=== PATIENT | male | born 1995 | race Caucasian/White ===

== ENCOUNTER 2016-10-04 00:21 | Inpatient (IN) | payer BC ==
[~2016-10-04] VITALS: Ht 175.3 cm; Wt 67.0 kg
--- NOTE | 2016-10-04 01:40 | REPUSA ---
CLINICAL HISTORY: Loss of consciousness. TECHNIQUE: Multiple axial brain CT scan sections were obtained from base to vertex without contrast a dministration. COMMENTS: The study shows normal configuration of sella turcica. There are no intra or extra-axial collections. There is no mass effect or midline shift. There is no evidence of hematoma formation. No hydrocephal us is present. No abnormal calcifications are noted. No significant abnormalities are seen either in the posterior fossa or supratentorial compartment. The sinuses and mastoid air cells are patent. IMPRESSION: No evidence of acute intracranial pathology. Thank you for your kind referral of this patient.
[2016-10-04 02:12] LABS: WHITE BLOOD COUNT 12.3 K/mm3 (4.0-10.0)
[2016-10-04 02:13] LABS: MEAN CORPUSCULAR HEMOGLOBIN 29.2 pg (27.0-33.0); MEAN CORPUSCULAR HGB CONC 33.2 g/dl (32.0-36.5); MEAN CORPUSCULAR VOLUME 87.8 fl (80.0-96.0); RED CELL DISTRIBUTION WIDTH 13.2 % (11.5-14.5)
[2016-10-04 02:41] LABS: METHADONE URINE NEGATIVE (NEGATIVE)
[2016-10-04 02:51] LABS: ALBUMIN 4.3 GM/DL (3.2-5.2); ALKALINE PHOSPHATASE 71 U/L (45-117); ALT/SGPT 17 U/L (12-78); ANION GAP 10 MEQ/L (8-16); AST/SGOT 32 U/L (15-37); BILIRUBIN,DIRECT 0.2 MG/DL (0.0-0.2); BILIRUBIN,TOTAL 0.6 MG/DL (0.2-1.0); BLOOD UREA NITROGEN 9 MG/DL (7-18); CALCIUM LEVEL 8.8 MG/DL (8.5-10.1); CARBON DIOXIDE LEVEL 26 MEQ/L (21-32); CHLORIDE LEVEL 104 MEQ/L (98-107); CREATININE FOR GFR 1.01 MG/DL (0.70-1.30); GLOMERULAR FILTRATION RATE > 60.0 (>60); GLUCOSE, FASTING 95 MG/DL (70-105); POTASSIUM SERUM 3.4 MEQ/L (3.5-5.1); SODIUM LEVEL 140 MEQ/L (136-145); TOTAL PROTEIN 7.6 GM/DL (6.4-8.2)
[2016-10-04] MEDS ORDERED: LORazepam 1 MG TAB PO PRN (03:30)
[2016-10-04] MEDS ORDERED: IBUPROFEN 400 MG TAB PO PRN (03:30)
[2016-10-04] MEDS ORDERED: traZODone 50 MG TAB PO PRN (03:30)
[2016-10-04] MEDS ORDERED: MOM 30ML SUSPENSION UDC PO PRN (03:30)
[2016-10-04] MEDS ORDERED: ACETAMINOPHEN TAB 650MG DOSE (2X325MG) PO PRN (03:30)
[2016-10-04 04:40] VITALS: BP 120/78
[2016-10-04] MEDS: NICOTINE 21MG/24HR 1 EA TRANSDERMAL TD SCH (09:14)
[2016-10-04] MEDS: risperiDONE 1 MG TAB PO SCH ×2 (09:14→22:09)
[2016-10-04] MEDS ORDERED: OLANZapine ORAL DISINTEGRATING TAB 5MG PO PRN (12:00)
--- NOTE | 2016-10-04 12:20 | MHHPE ---
DATE OF ADMISSION: 10/04/2016 LEGAL STATUS AT ADMISSION: 9.39 legal status. HISTORY OF PRESENT ILLNESS: 21-year-old male with history of high anxiety and posttraumatic stress disorder by patient report. He is admitted on a 9.39 legal status. According to the record, patient came to the emergency department to be evaluated for auditory hallucinations and suicidal ideation. It is reported that he is struggling with psychotic symptoms. He said that he suffers from command auditory hallucinations for a very long time and that "affect him physically". He stated that he tries to respond to the voices and at times, he feels his tongue swells and twitches. He reports that he feels like someone is pushing him on the back of his head. Says that he is working two jobs and has been trying to get an answer to the above voices and feelings. Says that he has been going to clergy and other professionals trying to get an answer. During the interview today, patient is highly anxious. Patient says that since age 8 has been experiencing these voices. He has tendency towards somatization. He talks about muscle tension and his jaw and muscles being pulled and twisted, left side body aches and pains. He talks about when he is communicating with another person, he feels his throat vibrating and twitching at the same rate of the other person. He calls his "psychic attack" or "witch craft". Patient says that he hears a human voice, can be a male or a female that says "do you want to" and says that he does not understand. Says these voices can come out even in front of domestic animals. Patient attributes the voice to some type of entity that is manipulating him. He talks about "I feel like a computer, when somebody moves and mouse and controls me". "They want me to say yes". "They don't want me to be happy". When asked about his mood, he reports depression but his mood changes are due to the above psychotic features. Patient also reports having sleep problems, trying to figure out what is happening to him. Says his energy level is okay but then he says "they take my energy out like a vampire". Has low self esteem and reports is appetite okay. He also reports panic like symptoms with tight chest, tight airways, tight lungs, shortness of breath and feeling like I am going to black out. Patient says that he was diagnosed of posttraumatic stress disorder and high anxiety. He reports that posttraumatic stress disorder was in the context of a police control at his home when he was younger. PAST MEDICAL HISTORY: Patient has been diagnosed of scoliosis. Patient is allergic to PEANUT PRODUCTS and BEES. PAST PSYCHIATRIC HISTORY: As above, patient reports has been diagnosed of posttraumatic stress disorder and high anxiety. Patient uses marijuana and alcohol. FAMILY HISTORY: Patient reports has several cousins with depression and drug abuse. SUBSTANCE ABUSE HISTORY: Patient says that he has been using marijuana for a long time but lately he is using just a small amount daily. Also reports has been controlling the alcohol intake and that he drinks approximately one beer daily although he has some days that maybe drinks a six pack at the most. SOCIAL HISTORY: Patient was raised by both parents. Patient denies any abuse or neglect during childhood. Reports a completely normal childhood. Denies any problems socializing or making friends when he was at school making B+ and A grades. He graduated high school. Patient reports that he is now working two jobs and is doing approximately 8 hours every week. Patient denies any problems at work or with coworkers. Patient lives with his parents that he says they are his main support. Says that around a year and a half ago, his social network has been decreasing progressively. PSYCHIATRIC REVIEW OF SYSTEMS: Depression and other mood disorder. Patient reports insomnia, anhedonia, energy deficit, psychomotor retardation and suicidal thoughts. 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 SUBSTANCE ABUSE HISTORY: Patient has been using alcohol and marijuana. ANXIETY DISORDER: Patient is anxious and has panic like symptoms. No agoraphobia. No obsessive compulsive disorder (OCD) symptoms like washing hands repeatedly or checking things over and over. SOMATIZATION DISORDER: Patient has tendency to somatize, reports generalized pain. No conversion disorder, GI or sexual symptoms. EATING DISORDER: Screening for dieting, use of laxatives, eating in binges is negative. DEMENTIA AND COGNITIVE DISORDER: Screening for short or watermelon inspector memory impairment, orientation and general information is negative for dementia or negative disorder. PSYCHOTIC DISORDER: As above, patient has delusions, is paranoid and also has auditory hallucinations. PHYSICAL EXAMINATION: As per physician assistance. LABS AT ADMISSION: CBC is unremarkable except white blood cell of 12.3, CMP is unremarkable except potassium of 3.4, TSH within normal limits. Urine drug screen (UDS) is negative. Blood alcohol level is negative. CT scan of the brain is within normal limits. MENTAL STATUS EXAMINATION: Patient is dressed in [facility]. Patient is cooperative. Speech is clear, coherent with normal rate and is spontaneous. Patient has fair eye contact. Mood is anxious and depressed. Affect is restricted. Patient is oriented to time, place, person and situation. Attention, concentration and memory are somewhat impaired. Patient reports auditory hallucinations. No visual hallucinations. Patient has paranoid delusions, somatic delusions. Patient reports suicidal thoughts but no homicidal ideation. Judgment and insight are poor. 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 Cannabis and alcohol abuse. Eyota II: Deferred. Eyota III: Scoliosis. INITIAL TREATMENT PLAN: Patient was admitted on a 9.39 legal status. Complete history was obtained. With his permission, family will be contacted and data base will be expanded. His medication regimen will be reviewed and changed accordingly. He will be provided with protected environment. He will be treated with individual, group and milieu therapy. He will also receive supportive psychoeducation. Discharge planning will commence immediately. Length of stay will be between 7-10 days. Outpatient followup will be strongly recommended. The treatment plan will focus initially on altered thoughts, altered perceptions , risk for suicide and substance abuse. EDD
[2016-10-04 18:23] VITALS: BP 134/74
[2016-10-04] MEDS: QUEtiapine FUMARATE 100 MG TAB PO SCH (22:08)
--- NOTE | 2016-10-05 07:38 | HPE ---
DATE: 10/05/2016 Please refer to the psychiatric history and evaluation for further details on this admission. This examination and history is intended for medical issues which may need treatment, follow-up or consultation on this 21-year-old male. ALLERGIES: PEANUTS and BEE VENOM. PRIMARY CARE PROVIDER: Dr. Coughlin, [facility]. SOCIAL HISTORY: He is single. ETOH - 1-6 beers per night. Smokes - 1 1/2 - 2 packs of cigarettes. Recreational drug use - marijuana. PAST MEDICAL HISTORY: Negative. PAST SURGICAL HISTORY: Circumcision 2011. HOME MEDICATIONS: None. RADIOLOGY STUDIES: CT negative. LABORATORY STUDIES: WBC 12.3, hemoglobin 14.4, hematocrit 43.4, platelets 340. Sodium 140, potassium 3.4, chloride 104, CO2 26, BUN 9, creatinine 1.01. Tox screen is negative. Ten systems review was done. Patient had a complaint of a slight papular rash, itchy on his left foot, otherwise unremarkable. PHYSICAL EXAMINATION: 21-year-old cooperative male in no acute distress. Height 69 inches. Weight 65.4 kg. Body mass index (BMI) 21.3 kilograms. Blood pressure 123/73. Pulse 52. Respirations 16. Temperature 97. The patient is alert and oriented times three. Pupils equal and reactive to light. Extraocular movements intact. Cornea and sclera clear. Conjunctiva normal. No facial asymmetry. Pharynx, tongue and gums pink and moist. Tongue is midline. Neck is supple, without lymphadenopathy. No thyromegaly. No goiter. Carotid 2+ without bruit. Chest clear to auscultation, without wheeze or retraction. Heart is regular. Abdomen benign. Bowel sounds positive. Genitourinary ()/Rectal: Not done. Extremities No cyanosis, clubbing or edema. Peripheral pulses equal and palpable bilaterally. Skin is warm and dry. Slight small vesicular rash top of left foot. No redness or drainage. IMPRESSION AND PLAN: 1. Psychiatric. Plan per psychiatry. 2. Rash left foot. We will do Lotrisone twice a day for 7 days. Monitor for withdrawal. 3. Hypokalemia. We will recheck potassium.
[2016-10-05] MEDS: risperiDONE 1 MG TAB PO SCH ×2 (08:00→21:19)
[2016-10-05] MEDS: NICOTINE 21MG/24HR 1 EA TRANSDERMAL TD SCH (08:00)
[2016-10-05] MEDS: LOTRISONE CREAM 15 GM (BETAMETH/CLOTRIMAZOLE) TOP SCH ×2 (08:00→21:20)
[2016-10-05] MEDS ORDERED: NICOTINE 21MG/24HR 1 EA TRANSDERMAL TD SCH (09:00)
--- NOTE | 2016-10-05 16:39 | IPN ---
DATE: 10/05/2016 A 21-year-old male with history of high anxiety and posttraumatic stress disorder (PTSD) admitted due to auditory hallucinations and suicidal ideation. SUBJECTIVE: "I feel better today. I was able to sleep." OBJECTIVE: No major changes from yesterday, although the patient reports improvement. The patient also says that his auditory hallucinations have decreased. The patient is compliant with treatment and has tolerated well the medication. MENTAL STATUS EXAMINATION: The patient is dressed in [facility]. The patient is clean and well groomed. Has fair eye contact. Speech is somewhat pressured. Mood is anxious. Affect is labile. The patient continues with auditory hallucinations and paranoid delusions. Memory, attention and concentration are fair. The patient is able to contract for safety while in the hospital. Insight and judgment are poor. ASSESSMENT: 1. Auditory hallucinations. 2. Altered thoughts. 3. Suicidal ideation. PLAN: 1. Continue with Seroquel 100 mg by mouth at bedtime. 2. Continue with Risperdal 1 mg by mouth twice a day. 3. Continue close observation. 4. Continue medication management, individual and group therapy.
[2016-10-05 18:00] VITALS: BP 138/85
[2016-10-05] MEDS: QUEtiapine FUMARATE 100 MG TAB PO SCH (21:19)
[2016-10-06 06:15] VITALS: BP 141/65
[2016-10-06 07:20] LABS: ANION GAP 7 MEQ/L (8-16); BLOOD UREA NITROGEN 10 MG/DL (7-18); CALCIUM LEVEL 8.8 MG/DL (8.5-10.1); CARBON DIOXIDE LEVEL 27 MEQ/L (21-32); CHLORIDE LEVEL 107 MEQ/L (98-107); CREATININE FOR GFR 0.91 MG/DL (0.70-1.30); GLOMERULAR FILTRATION RATE > 60.0 (>60); GLUCOSE, FASTING 89 MG/DL (70-105); POTASSIUM SERUM 4.5 MEQ/L (3.5-5.1); SODIUM LEVEL 141 MEQ/L (136-145)
[2016-10-06] MEDS: risperiDONE 1 MG TAB PO SCH ×2 (09:08→21:31)
[2016-10-06] MEDS: NICOTINE 21MG/24HR 1 EA TRANSDERMAL TD SCH (09:08)
[2016-10-06] MEDS: LOTRISONE CREAM 15 GM (BETAMETH/CLOTRIMAZOLE) TOP SCH ×2 (09:09→21:30)
--- NOTE | 2016-10-06 17:14 | IPN ---
DATE: 10/06/2016 A 21-year-old male with history of anxiety, posttraumatic stress disorder (PTSD) and auditory hallucinations, admitted for suicidal ideation. SUBJECTIVE: "I am feeling better." OBJECTIVE: The patient continues to improve slowly. The patient denies side effect from medication. The patient is motivated for treatment. The patient reports decrease of frequency and severity of the auditory hallucinations and has been able to sleep with the help of Seroquel. MENTAL STATUS EXAMINATION: The patient is dressed in [facility]. The patient is clean and well groomed, has fair eye contact. Speech is somewhat pressured. Mood is anxious, affect is labile. The patient's auditory hallucinations are improved and also his delusions are improving. Memory, attention and concentration are fair. The patient is able to contract for safety during his hospitalization. Insight and judgment are poor. ASSESSMENT: 1. Auditory hallucinations. 2. Altered thoughts. 3. Suicidal ideation. PLAN: 1. Continue with Seroquel 100 mg by mouth at bedtime. 2. Continue with Risperdal 1 mg by mouth twice a day. 3. Continue close observation. 4. Continue medication management, individual and group therapy.
[2016-10-06 18:41] VITALS: BP 127/60
[2016-10-06] MEDS: QUEtiapine FUMARATE 100 MG TAB PO SCH (21:31)
[2016-10-07 06:38] VITALS: BP 126/63
[2016-10-07] MEDS: LOTRISONE CREAM 15 GM (BETAMETH/CLOTRIMAZOLE) TOP SCH ×2 (08:10→22:01)
[2016-10-07] MEDS: risperiDONE 1 MG TAB PO SCH (08:10)
[2016-10-07] MEDS: NICOTINE 21MG/24HR 1 EA TRANSDERMAL TD SCH (08:11)
[2016-10-07 18:09] VITALS: BP 135/64
[2016-10-07] MEDS ORDERED: risperiDONE 1 MG TAB PO SCH (21:00)
[2016-10-07] MEDS: QUEtiapine FUMARATE 100 MG TAB PO SCH (22:00)
--- NOTE | 2016-10-07 22:26 | IPN ---
DATE: 10/07/2016 21-year-old male with history of anxiety, posttraumatic stress disorder (PTSD), auditory hallucinations, admitted to our unit for suicidal ideation. SUBJECTIVE: "I am feeling better." OBJECTIVE: Patient continues improving. Patient reports feeling significantly better with the help of the medication. He denies auditory hallucinations today. Patient is able to contract for safety. MENTAL STATUS EXAMINATION: Patient is dressed in [facility]. Patient is clean and well-groomed, has fair eye contact. His speech is somewhat pressured. Mood is anxious. Affect is labile. Patient's auditory hallucinations have been improving. Memory, attention, and concentration are fair. Patient is able to contract for safety during his hospitalization. Insight and judgment is poor. ASSESSMENT: 1. Auditory hallucinations. 2. Altered thoughts. 3. Suicidal ideation. PLAN: 1. Decrease Risperdal to 1 mg by mouth nightly. 2. Continue Seroquel 100 mg by mouth nightly. 3. Continue medication management, individual and group therapy.
[2016-10-08 06:29] VITALS: BP 122/67
[2016-10-08] MEDS: NICOTINE 21MG/24HR 1 EA TRANSDERMAL TD SCH (08:08)
[2016-10-08] MEDS: LOTRISONE CREAM 15 GM (BETAMETH/CLOTRIMAZOLE) TOP SCH ×2 (08:08→22:01)
[2016-10-08 18:00] VITALS: BP 118/63
[2016-10-08] MEDS ORDERED: traZODone 100 MG TAB PO SCH (21:00)
[2016-10-08] MEDS: risperiDONE 0.5 MG TAB PO SCH (22:01)
[2016-10-09 07:04] VITALS: BP 128/68
[2016-10-09] MEDS: NICOTINE 21MG/24HR 1 EA TRANSDERMAL TD SCH (08:00)
[2016-10-09] MEDS: LOTRISONE CREAM 15 GM (BETAMETH/CLOTRIMAZOLE) TOP SCH ×2 (08:01→23:04)
--- NOTE | 2016-10-09 09:40 | IPN ---
DATE OF SERVICE: 10/08/2016 A 21-year-old male with history of anxiety, posttraumatic stress disorder (PTSD), auditory hallucinations, admitted to our unit for suicidal ideation. SUBJECTIVE: "I feel much better." OBJECTIVE: The patient continues improving. The patient is denying auditory hallucinations. The patient does not have feelings of paranoia. The patient is motivated for treatment. He is interacting better with other patients and staff. Is going to all psychotherapy activities. Denies side effect from medication. MENTAL STATUS EXAMINATION: The patient dressed in [facility]. The patient is cooperative during the interview. Has fair eye contact. His speech is normal in rate, volume. Articulation is coherent and is spontaneous. Mood is slightly anxious. Affect is congruent with mood. No evidence of delusions or hallucinations during the interview. Memory, attention, and concentration are fair. The patient is able to contract for safety during his hospitalization. Insight and judgment is improving. ASSESSMENT: 1. Auditory hallucinations. 2. Altered thoughts. 3. Suicidal ideation. PLAN: 1. Decrease Risperdal to 0.5 mg by mouth nightly. 2. Discontinue Seroquel. 3. Start trazodone 100 mg by mouth nightly. 4. Continue medication management, individual and group therapy.
--- NOTE | 2016-10-09 21:57 | IPN ---
DATE: 10/09/2016 21-year-old male with history of anxiety, posttraumatic stress disorder (PTSD), and auditory hallucinations, admitted to our unit for suicidal ideation. SUBJECTIVE: "I feel better." OBJECTIVE: Patient continues improving, however he said he could not sleep well last night. His Seroquel was discontinued and he was started on trazodone. Patient denies side effect from the medication. Patient is interacting with other patients and staff. Patient is denying auditory or visual hallucinations. MENTAL STATUS EXAMINATION: Patient is dressed in [facility]. Patient is cooperative during the interview, has fair eye contact. His speech is normal in rate, volume, and articulation. Mood is slightly anxious. Affect is congruent with mood. No delusions or hallucinations. Memory, attention, and concentration are fair. Patient is able to contract for safety during his hospitalization. Insight and judgment is limited. ASSESSMENT: 1. Auditory hallucinations. 2. Altered thoughts. 3. Suicidal ideation. PLAN: 1. Continue Risperdal 0.5 mg by mouth nightly. 2. Increase trazodone to 100 mg by mouth nightly. 3. Continue medication management, individual and group therapy.
[2016-10-09] MEDS: risperiDONE 0.5 MG TAB PO SCH (23:03)
[2016-10-09] MEDS: traZODone 100 MG TAB PO SCH (23:03)
[2016-10-10 06:31] VITALS: BP 125/77
[2016-10-10] MEDS: LOTRISONE CREAM 15 GM (BETAMETH/CLOTRIMAZOLE) TOP SCH ×2 (09:00→22:36)
[2016-10-10] MEDS: NICOTINE 21MG/24HR 1 EA TRANSDERMAL TD SCH (09:04)
--- NOTE | 2016-10-10 16:05 | IPN ---
DATE: 10/10/2016 21-year-old male with history of anxiety, posttraumatic stress disorder (PTSD), and auditory hallucinations admitted to our unit for suicidal ideation. SUBJECTIVE: "I am feeling a lot better." OBJECTIVE: Patient has significantly improved from admission. Patient slept well with the increase of trazodone to 200 mg. Patient denies side effect from the medication. Patient is denying auditory or visual hallucinations or delusions. His mood is euthymic. Patient is interacting well with other patients and staff. Patient is more insightful. MENTAL STATUS EXAMINATION: Patient is dressed in [facility]. Patient is cooperative during the interview, has fair eye contact. Speech is normal in rate, volume, and articulation. Mood is euthymic. Affect is congruent with mood. No delusions or hallucinations. Memory, attention, and concentration are fair. Patient is denying suicidal or homicidal ideation during the interview. Insight and judgment is limited. ASSESSMENT: 1. Auditory hallucinations. 2. Altered thoughts. 3. Suicidal ideation. PLAN: 1. Continue with Risperdal 0.5 mg by mouth nightly. 2. Continue trazodone 200 mg by mouth nightly. 3. Continue medication management, individual and group therapy. 4. Will discharge tomorrow after a family meeting.
[2016-10-10 18:15] VITALS: BP 121/57
[2016-10-10] MEDS: traZODone 100 MG TAB PO SCH (22:16)
[2016-10-10] MEDS: risperiDONE 0.5 MG TAB PO SCH (22:17)
[2016-10-11 06:22] VITALS: BP 136/75
[2016-10-11] MEDS ORDERED: TRAZ10TA PO (08:06)
[2016-10-11] MEDS ORDERED: RISP0.5T21 PO (08:06)
[2016-10-11] MEDS: NICOTINE 21MG/24HR 1 EA TRANSDERMAL TD SCH (09:00)
[2016-10-11] MEDS: LOTRISONE CREAM 15 GM (BETAMETH/CLOTRIMAZOLE) TOP SCH (09:06)
--- NOTE | 2016-10-12 10:24 | MHDS ---
DATE OF ADMISSION: 10/04/2016 DATE OF DISCHARGE: 10/11/2016 LEGAL STATUS AT ADMISSION: 9.39 legal status. HISTORY OF PRESENT ILLNESS: 21-year-old male with history of high anxiety and posttraumatic stress disorder (PTSD) by patient report. He was admitted on a 9.39 legal status. According to the record, patient came to the emergency department (ED) to be evaluated for auditory hallucinations and suicidal ideation. 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 He reports that he feels like someone is pushing him on the back of his head. Says that he is working two jobs and is trying to get an answer to the above voices and feelings. Says that he has been going to clergy and other professionals trying to get this answer. During the interview in our unit, patient is highly anxious, says that since age 8 has been experiencing these voices. He has tendency towards somatization. He talks about muscle tension and his jaw and muscles being pulled and twisted, also that his left side of the body aches and has aches and pains. He talks about feeling his throat vibrating and twitching when he is talking to other people. He calls the above "psychic attack" or "witchcraft." Patient says that he hears a human voice, can be a male or female that says "do you want to" and says that he does not understand. Says these voices come even out in front of domestic animals. Patient attributes the voices to some type of entity that is manipulating him. He talks about "I feel like a computer, when somebody moves the mouse and controls me." "They want me to say yes." "They don't want me to be happy." When asked about his mood, he reports depression and mood changes due to the above explained psychotic features. Patient also reports significant problems with sleep and, at times, it is because he is trying to figure out what is happening to him. He stated that he has very low energy and reports "they take my energy out like a vampire." He reports low self esteem. Patient also reports that in the past was diagnosed with posttraumatic stress disorder (PTSD) and high anxiety, but the description of the traumatic event does not appear to be of high severity. Patient is non-reliable at this point. LABS AT ADMISSION: His CBC was unremarkable, except white blood cell of 12.3. CMP unremarkable, except potassium of 3.4. TSH within normal limits. Urine drug screen was negative. Blood alcohol level was negative. Brain CT was within normal limits. HOSPITAL COURSE: After the first interview, patient was started on Risperdal 1 mg by mouth twice a day and Seroquel 100 mg by mouth nightly. Patient reacted very well to this medication. Patient had no complication during his hospital admission. He recovered rather quickly from the psychotic features. After 48 hours of treatment, he stated that he was no longer hearing the voices. He started to interact much better with other patients and staff. His sleep was normalized with the help of Seroquel. His Risperdal was slowly decreased up to 0.5 mg by mouth nightly. Seroquel was discontinued and was switched to trazodone. Trazodone had to be increased up to 200 mg by mouth nightly to allow him to sleep well. At the moment of discharge, patient is in stable condition with no auditory or visual hallucinations, delusions, suicidal or homicidal ideation. He is more insightful. He is willing to followup recommendations and treatment. Patient is denying side effect from the medication. MEDICATIONS AT DISCHARGE: - Risperdal 0.5 mg by mouth nightly - trazodone 200 mg by mouth nightly MENTAL STATUS EXAMINATION AT DISCHARGE: Patient is dressed in [facility]. Patient is calm and cooperative. His speech is clear, coherent, with normal rate and is spontaneous. Patient has good eye contact. Mood is euthymic. Affect is appropriate and congruent with mood. Patient is oriented to time, place, person, and situation. Maintains attention and concentration correctliy. Instant recall, recent, and remote memory are intact. Thought processes are coherent, logical, and goal directed. Patient does not have auditory or visual hallucination. Patient does not have paranoid, persecutory, somatic, grandiose, or yazdanism delusion. Patient denies suicidal or homicidal ideation. Judgment and insight are fair. DISCHARGE DIAGNOSES: Edson I: Brief psychotic episode. Cannabis and alcohol abuse. Edson II: Deferred. Edson III: Scoliosis. CONDITION AT DISCHAGE: Stable. No auditory or visual hallucination. No delusions. No suicidal or homicidal ideation. INSTRUCTIONS TO THE PATIENT: It was recommended to the patient to decrease the amount of hours he was working. He said he was working 80 hours a . It is also recommended not to use alcohol or cannabis. He is willing to followup the recommendation. Patient has been advised to maintain absolute sobriety from drugs and alcohol and to continue taking his medications as prescribed. Patient has a scheduled appointment for medication management, individual psychotherapy, and primary care physician.
[2017-02-05] MEDS ORDERED: PRED10TA2 (18:32)
== END 2016-10-11 11:50 | disposition home or self-care (01) | DRG 751 ==
LOC: M ED 00:21 → M ED INP 03:30 → M PSY 04:34
PROVIDERS: ADMIT Psychiatry & Neurology Psychiatry; ATTEND Psychiatry & Neurology Psychiatry
DX: F23 Brief psychotic disorder (principal); R45.851 Suicidal ideations; F10.10 Alcohol abuse, uncomplicated; F12.10 Cannabis abuse, uncomplicated; Z91.010 Allergy to peanuts; Z91.030 Bee allergy status; R21 Rash and other nonspecific skin eruption; E87.6 Hypokalemia

== ENCOUNTER 2016-10-18 21:52 | Emergency (ER) | payer BC ==
[~2016-10-18] VITALS: Ht 175.3 cm; Wt 68.2 kg
[~2016-10-18 21:52] MED LIST: RISP0.5T21 PO; TRAZ10TA PO
[2016-10-18] MEDS ORDERED: EPINEPHrine INJ 1 MG/ML 1ML AMP IM STA (22:04)
[2016-10-18] MEDS ORDERED: NS 1,000 ML IV SCH (22:09)
[2016-10-18] MEDS ORDERED: FAMOTIDINE INJ 20MG/2ML VIAL (S0028) IVP ONE (22:15)
[2016-10-18 22:42] LABS: BASO % 0.2 % (0.0-1.0); EOS % 0.2 % (0.0-3.0); LARGE UNSTAINED CELL # 0.1 K/mm3 (0.0-0.4); LARGE UNSTAINED CELL % 0.9 % (0.0-4.0); LYMPH # 2.4 K/mm3 (1.5-6.5); LYMPH % 17.9 % (24.0-44.0); MEAN CORPUSCULAR HEMOGLOBIN 28.6 pg (27.0-33.0); MEAN CORPUSCULAR HGB CONC 32.9 g/dl (32.0-36.5); MEAN CORPUSCULAR VOLUME 86.9 fl (80.0-96.0); MONO # 0.6 K/mm3 (0.0-0.8); MONO % 4.5 % (0.0-5.0); NEUTROPHILS # 9.6 K/mm3 (1.8-7.7); NEUTROPHILS % 76.3 % (36.0-66.0); PLATELET COUNT, AUTOMATED 428 k/mm3 (150-450); RED CELL DISTRIBUTION WIDTH 13.6 % (11.5-14.5); WHITE BLOOD COUNT 12.6 K/mm3 (4.0-10.0)
[2016-10-18 22:48] LABS: ANION GAP 8 MEQ/L (8-16); BLOOD UREA NITROGEN 14 MG/DL (7-18); CARBON DIOXIDE LEVEL 28 MEQ/L (21-32); CHLORIDE LEVEL 103 MEQ/L (98-107); CREATININE FOR GFR 0.86 MG/DL (0.70-1.30); GLOMERULAR FILTRATION RATE > 60.0 (>60); GLUCOSE, FASTING 84 MG/DL (70-105); POTASSIUM SERUM 3.9 MEQ/L (3.5-5.1); SODIUM LEVEL 139 MEQ/L (136-145)
[2016-10-18 23:44] VITALS: BP 103/52
[2016-10-18] MEDS ORDERED: EPIP0.3I2 IM (23:58)
--- NOTE | 2016-10-19 07:20 | ECGEPIP ---
Stationary ECG Study [facility] - ED Test Date: 2016-10-18 Pat Name: MAXIME STEWART Department: Room: - Gender: M Lip Of Shank Cutter: eddie : 1995 Requested By: MATTHEW Toure Order Number: [id number] Reading MD: Thanh Bone Measurements Intervals Forbes Rate: 75 P: 64 IN: 147 QRS: 62 QRSD: 92 T: 51 QT: 388 QTc: 436 Interpretive Statements SINUS RHYTHM WITH SINUS ARRHYTHMIA Electronically Signed On 10-19-2016 7:20:45 EDT by Thanh Bone
--- NOTE | 2016-10-19 07:50 | REP ---
Chest two views HISTORY: Shortness of breath Comparison: None The lungs are clear. The heart is normal in size. The pulmonary vasculature is normal in appearance. The bony structure is intact. IMPRESSION: No acute disease. Signed by Matt Morris MD 10/19/2016 07:42 A
[2017-02-05] MEDS ORDERED: PRED10TA2 (18:32)
== END 2016-10-19 00:13 | disposition home or self-care (01) ==
LOC: EDBD 21:52 → M ED 21:52
DX: R22.0 Localized swelling, mass and lump, head (principal); T78.40XA Allergy, unspecified, initial encounter; Y92.9 Unspecified place or not applicable; Y93.9 Activity, unspecified; J45.909 Unspecified asthma, uncomplicated; F17.200 Nicotine dependence, unspecified, uncomplicated; Z79.899 Other long term (current) drug therapy; Z88.8 Allergy status to other drugs, medicaments and biological substances; Z91.010 Allergy to peanuts

== ENCOUNTER 2016-12-20 21:12 | Emergency (ER) | payer BC ==
[~2016-12-20] VITALS: Ht 175.3 cm; Wt 67.3 kg
[~2016-12-20 21:12] MED LIST changes: +EPIP0.3I2 IM
[2016-12-20] MEDS ORDERED: ALBUTEROL SULFATE 2.5 MG/0.5 ML INH NEB SOLN NEB ONE ×2 (22:30→23:15)
--- NOTE | 2016-12-20 23:10 | REPUSA ---
Clinical history: shortness of breath. Comparison: None. Findings: Frontal and lateral views of the chest were obtained. The mediastinum and cardiac silhouett e are within normal limits. The lungs are clear. No pleural effusion or pneumothorax is seen. The oss eous structures and soft tissues are unremarkable. Impression: No acute disease.
[2016-12-20] MEDS ORDERED: ALBU17IN INH (23:22)
[2016-12-21 00:10] VITALS: BP 116/57
[2017-02-05] MEDS ORDERED: PRED10TA2 (18:32)
== END 2016-12-21 00:10 | disposition home or self-care (01) ==
LOC: M ED 21:12
DX: J20.9 Acute bronchitis, unspecified (principal); J45.909 Unspecified asthma, uncomplicated; F41.9 Anxiety disorder, unspecified; F43.10 Post-traumatic stress disorder, unspecified; Z79.899 Other long term (current) drug therapy; Z88.8 Allergy status to other drugs, medicaments and biological substances; Z91.010 Allergy to peanuts

== ENCOUNTER → 2018-03-09 | Outpatient (CLI) | payer BC ==
[2018-03-09 16:55] LABS: BASO % 0.3 % (0.0-1.0); EOS # 0.4 10^3/uL (0.0-0.50); HEMATOCRIT 36.3 % (42.0-52.0); HEMOGLOBIN 11.9 g/dl (13.5-17.5); IMMATURE GRANULOCYTE % 0.4 % (0-3.0); LYMPH # 2.5 10^3/uL (1.5-6.5); LYMPH % 18.2 % (24.0-44.0); MEAN CORPUSCULAR HEMOGLOBIN 28.9 pg (27.0-33.0); MEAN CORPUSCULAR HGB CONC 32.8 g/dl (32.0-36.5); MEAN CORPUSCULAR VOLUME 88.1 fl (80.0-96.0); MONO # 0.8 10^3/uL (0.0-0.8); MONO % 5.9 % (0.0-5.0); NEUTROPHILS # 9.8 10^3/uL (1.8-7.7); NEUTROPHILS % 72.2 % (36.0-66.0); PLATELET COUNT, AUTOMATED 342 10^3/uL (150-450); RED BLOOD COUNT 4.12 10^6/uL (4.30-6.10); RED CELL DISTRIBUTION WIDTH 13.2 % (11.5-14.5); WHITE BLOOD COUNT 13.5 10^3/uL (4.0-10.0)
[2018-03-09 17:01] LABS: ALBUMIN 3.4 GM/DL (3.2-5.2); ALBUMIN/GLOBULIN RATIO 1.03 (1.00-1.93); ALKALINE PHOSPHATASE 75 U/L (45-117); ALT/SGPT 15 U/L (12-78); ANION GAP 7 MEQ/L (8-16); AST/SGOT 20 U/L (7-37); BILIRUBIN,TOTAL 0.3 MG/DL (0.2-1.0); BLOOD UREA NITROGEN 11 MG/DL (7-18); CALCIUM LEVEL 8.4 MG/DL (8.5-10.1); CARBON DIOXIDE LEVEL 27 MEQ/L (21-32); CHLORIDE LEVEL 106 MEQ/L (98-107); CREATININE FOR GFR 0.93 MG/DL (0.70-1.30); GLOMERULAR FILTRATION RATE > 60.0 (>60); GLUCOSE, FASTING 91 MG/DL (70-100); POTASSIUM SERUM 3.9 MEQ/L (3.5-5.1); SODIUM LEVEL 140 MEQ/L (136-145); TOTAL PROTEIN 6.7 GM/DL (6.4-8.2)
[2018-03-09 23:07] LABS: CHLAMYDIA DNA AMPLIFICATION NEGATIVE (NEGATIVE); GC DNA AMPLIFICATION NEGATIVE (NEGATIVE)
[2018-03-11 10:23] LABS: HEPATITIS B SURFACE ANTIGEN NEGATIVE (NEGATIVE)
[2018-03-11 10:49] LABS: HEPATITIS C VIRUS ABY INDEX 0.1 INDEX (<0.8)
[2018-03-11 10:51] LABS: HEPATITIS B CORE ANTIBODY IGM NEGATIVE (NEGATIVE)
[2018-03-11 10:52] LABS: HEPATITIS A ANTIBODY IGM NEGATIVE (NEGATIVE); HIV 1&2 SCREEN CENTAUR NEGATIVE (NEGATIVE)
[2018-03-11 14:16] LABS: Lyme Disease IgG/IgM Antibodie <0.91 ISR (0.00-0.90); Lyme Disease IgM Ab Quantitati <0.80 index (0.00-0.79)
== END ==
LOC: M WUC 13:12
DX: L03.114 Cellulitis of left upper limb (principal)
CPT/HCPCS: 80053

== ENCOUNTER → 2018-05-14 | Outpatient (CLI) | payer BC ==
[~2018-05-14] MED LIST changes: +ALBU17IN INH; +PRED10TA2
--- NOTE | 2018-05-14 19:11 | REP ---
UNILATERAL LEFT RIBS, PA CHEST: HISTORY: Chest pain. COMPARISON: 02/12/2017. The lungs are clear. The heart is normal in size. The pulmonary vasculature is normal in appearance. The bony structure is intact. IMPRESSION: No acute disease. Electronically Signed by Matt Morris MD 05/14/2018 07:16 P
[2018-05-14 21:41] LABS: CHLAMYDIA DNA AMPLIFICATION NEGATIVE (NEGATIVE); GC DNA AMPLIFICATION NEGATIVE (NEGATIVE)
[2018-05-15 15:58] LABS: HEPATITIS A ANTIBODY IGM NEGATIVE (NEGATIVE); HEPATITIS B CORE ANTIBODY IGM NEGATIVE (NEGATIVE); HEPATITIS B SURFACE ANTIGEN NEGATIVE (NEGATIVE); HEPATITIS C VIRUS ABY INDEX 0.1 INDEX (<0.8); HIV 1&2 SCREEN CENTAUR NEGATIVE (NEGATIVE)
== END ==
LOC: M WUC 18:02
PROVIDERS: ATTEND Physician Assistant
DX: R07.9 Chest pain, unspecified (principal)

== ENCOUNTER → 2018-06-28 | Outpatient (CLI) | payer BC ==
--- NOTE | 2018-06-29 07:19 | REP ---
LEFT SHOULDER, THREE VIEWS: There is no evidence of an acute fracture, dislocation or intrinsic bone disease. IMPRESSION: No fracture or dislocation. Electronically Signed by Nicholas Ward MD 06/29/2018 09:23 A
--- NOTE | 2018-06-29 07:19 | REP ---
THORACIC SPINE: Three AP and lateral views of the thoracic spine are performed. There is no fracture or dislocation. There is normal thoracic kyphosis and alignment. There is no significant degenerative disc disease. The posterior elements are intact. IMPRESSION: No fracture or dislocation. Electronically Signed by Nicholas Ward MD 06/29/2018 09:23 A
== END ==
LOC: M WUC 16:15
PROVIDERS: ATTEND Physician Assistant
DX: S20.222A Contusion of left back wall of thorax, initial encounter (principal); S40.012A Contusion of left shoulder, initial encounter; Y92.9 Unspecified place or not applicable; Y93.9 Activity, unspecified; Y99.9 Unspecified external cause status; X58.XXXA Exposure to other specified factors, initial encounter

== ENCOUNTER 2018-08-30 20:20 | Emergency (ER) | payer BC ==
[~2018-08-30] VITALS: Ht 170.2 cm; Wt 68.2 kg
[2018-08-30 20:49] LABS: BASO # 0.1 10^3/uL (0.0-0.2); EOS # 0.4 10^3/uL (0.0-0.50); EOS % 5.1 % (0.0-3.0); HEMATOCRIT 38.4 % (42.0-52.0); HEMOGLOBIN 12.9 g/dl (13.5-17.5); LYMPH # 2.9 10^3/uL (1.5-6.5); LYMPH % 35.8 % (24.0-44.0); MEAN CORPUSCULAR HEMOGLOBIN 28.7 pg (27.0-33.0); MEAN CORPUSCULAR HGB CONC 33.6 g/dl (32.0-36.5); MEAN CORPUSCULAR VOLUME 85.5 fl (80.0-96.0); MONO # 0.5 10^3/uL (0.0-0.8); MONO % 6.5 % (0.0-5.0); NEUTROPHILS # 4.2 10^3/uL (1.8-7.7); NEUTROPHILS % 51.2 % (36.0-66.0); PLATELET COUNT, AUTOMATED 450 10^3/uL (150-450); RED BLOOD COUNT 4.49 10^6/uL (4.30-6.10); WHITE BLOOD COUNT 8.2 10^3/uL (4.0-10.0)
--- NOTE | 2018-08-30 20:54 | REP ---
Clinical: Chest pain . Comparison: 05/14/2018 . Findings: The mediastinum and cardiac silhouette are stable and within normal limits for portable technique. The lung alexis are clear without acute consolidation, effusion, or pneumothorax. Skeletal structures are intact. Impression: No acute cardiopulmonary process appreciated. Electronically Signed by Jamin Casarez MD 08/30/2018 08:46 P
[2018-08-30] MEDS ORDERED: NS 1,000 ML IV ONE (21:15)
[2018-08-30 21:26] LABS: AMPHETAMINES LEVEL URINE POSITIVE (NEGATIVE); BARBITURATES URINE NEGATIVE (NEGATIVE); BENZODIAZEPINES URINE NEGATIVE (NEGATIVE); CANNABINOIDS URINE POSITIVE (NEGATIVE); COCAINE METABOLITE URINE POSITIVE (NEGATIVE); METHADONE URINE NEGATIVE (NEGATIVE); OPIATES URINE NEGATIVE (NEGATIVE); PHENCYCLIDINE URINE NEGATIVE (NEGATIVE)
[2018-08-30 21:30] LABS: ALBUMIN 3.5 GM/DL (3.2-5.2); ALT/SGPT 22 U/L (12-78); BILIRUBIN,DIRECT < 0.1 MG/DL (0.0-0.2); BILIRUBIN,TOTAL 0.4 MG/DL (0.2-1.0); BLOOD UREA NITROGEN 16 MG/DL (7-18); CALCIUM LEVEL 8.8 MG/DL (8.5-10.1); CARBON DIOXIDE LEVEL 26 MEQ/L (21-32); CHLORIDE LEVEL 103 MEQ/L (98-107); CPK CREATINE PHOSPHOKINASE 877 U/L (39-308); CREATININE FOR GFR 1.05 MG/DL (0.70-1.30); ETHYL ALCOHOL (ETHANOL) < 0.003 % (0.000-0.010); GLOMERULAR FILTRATION RATE > 60.0 (>60); GLUCOSE, FASTING 114 MG/DL (70-100); LIPASE 69 U/L (73-393); MB/CK RELATIVE INDEX 0.72 (< OR =4); POTASSIUM SERUM 3.8 MEQ/L (3.5-5.1); SODIUM LEVEL 138 MEQ/L (136-145); TOTAL PROTEIN 7.5 GM/DL (6.4-8.2); TROPONIN I < 0.02 NG/ML (< 0.10)
[2018-08-30] MEDS ORDERED: DILUENT IV ONE (23:00)
[2018-08-30] MEDS ORDERED: NS IV ONE (23:00)
[2018-08-30 23:09] LABS: CHLAMYDIA DNA AMPLIFICATION NEGATIVE (NEGATIVE); GC DNA AMPLIFICATION NEGATIVE (NEGATIVE)
--- NOTE | 2018-08-31 | REPVR ---
EXAM: US Pelvis Limited, Male EXAM DATE/TIME: 08/30/2018 11:34 PM CLINICAL HISTORY: 23 years old, male; Groin pain. Evaluate for hernia. TECHNIQUE: Imaging protocol: Real-time pelvic ultrasound with image documentation. COMPARISON: No relevant prior studies available. FINDINGS: Soft tissues: No inguinal hernia is identified on either side. IMPRESSION: No sonographic evidence for an inguinal hernia. Electronically signed by: Reuben Shipman On 08/30/2018 23:59:46 PM
--- NOTE | 2018-08-31 00:05 | REPVR ---
EXAM: US Scrotum and US Duplex Artery or Vein, Scrotum, Limited EXAM DATE/TIME: 08/30/2018 11:21 PM CLINICAL HISTORY: 23 years old, male; Groin pain TECHNIQUE: Imaging protocol: Real-time ultrasound of the scrotum. Real-time duplex ultrasound scan of the arterial or venous flow of the scrotum with B-mode, color Doppler flow and spectral waveform analysis. Limited exam. COMPARISON: No relevant prior studies available. FINDINGS: Right Testicle: Normal. No mass. No torsion or orchitis. Normal color Doppler and spectral waveforms. The right testicle measures 4.2 cm x 2.3 cm x 3.1 cm. Left Testicle: Normal. No mass. No torsion or orchitis. Normal color Doppler and spectral waveforms. The left testicle measures 4.7 cm x 2.2 cm x 3 cm. Epididymides: Incidental note is made of a 2 mm x 2 mm x 1 mm cyst in the right epididymis. The head of the right epididymis measures 7 mm in diameter and the head of the left epididymis measures 7 mm in diameter. Scrotum: There is small bilateral hydroceles. IMPRESSION: Essentially normal scrotal ultrasound, except for small bilateral hydroceles. No evidence for testicular torsion or orchitis. Electronically signed by: Reuben Shipman On 08/31/2018 00:05:03 AM
[2018-08-31] MEDS ORDERED: KETOROLAC 30 MG/ML VIAL (J1885) IV ONE (00:15)
[2018-08-31 01:30] VITALS: BP 113/64
--- NOTE | 2018-08-31 20:53 | ECGEPIP ---
[facility] - ED Test Date: 2018-08-30 Pat Name: MAXIME STEWART Department: Room: - Gender: Male Online Tutor: REID : [id number] Requested By: JOHN Murguia Order Number: [id number] Reading MD: Linda Doan Measurements Intervals [place] Rate: 76 P: 59 [place]: 147 QRS: 74 QRSD: 94 T: 61 QT: 368 QTc: 416 Interpretive Statements SINUS RHYTHM ST ELEVATION, PROBABLY EARLY REPOLARIZATION, CLINICAL CORRELATION Electronically Signed on 08-31-2018 20:52:48 EDT by Linda Doan
== END 2018-08-31 02:07 | disposition home or self-care (01) ==
LOC: M ED 20:20
DX: R53.81 Other malaise (principal); F19.20 Other psychoactive substance dependence, uncomplicated; Z72.0 Tobacco use; Z91.010 Allergy to peanuts; Z88.8 Allergy status to other drugs, medicaments and biological substances
CPT/HCPCS: 71045; 76857; 76870; 80048; 80076; 80307; 81001; 82550; 82553; 83690; 84484; 85025; 87491; 87591; 93005; 93041; 93976; 94760; 96361; 96374; 99285; G0480; J1885

== ENCOUNTER 2019-09-26 14:25 | Emergency (ER) | payer BC, SELFPAY ==
[~2019-09-26] VITALS: Ht 170.2 cm; Wt 79.3 kg
[~2019-09-26 14:25] MED LIST changes: -TRAZ10TA PO; +TRAZ1TAB12 PO
[2019-09-26 16:30] LABS: CHLAMYDIA DNA AMPLIFICATION NEGATIVE (NEGATIVE); GC DNA AMPLIFICATION NEGATIVE (NEGATIVE)
[2019-09-26] MEDS ORDERED: BACT800T5 PO (16:43)
[2019-09-26 16:49] VITALS: BP 131/75
[2019-09-27 10:57] LABS: HEPATITIS B SURFACE ANTIBODY POSITIVE (POSITIVE); HEPATITIS B SURFACE ANTIGEN NEGATIVE (NEGATIVE); HEPATITIS C VIRUS ABY INDEX > 11.0 INDEX (<0.8); HIV 1&2 SCREEN CENTAUR NEGATIVE (NEGATIVE)
== END 2019-09-26 16:51 | disposition home or self-care (01) ==
LOC: M ED 14:25
DX: L02.91 Cutaneous abscess, unspecified (principal); F11.10 Opioid abuse, uncomplicated; F17.200 Nicotine dependence, unspecified, uncomplicated; Z20.2 Contact with and (suspected) exposure to infections with a predominantly sexual mode of transmission; Z72.51 High risk heterosexual behavior; Z72.89 Other problems related to lifestyle; Z79.899 Other long term (current) drug therapy; Z86.14 Personal history of Methicillin resistant Staphylococcus aureus infection; Z88.8 Allergy status to other drugs, medicaments and biological substances; Z91.010 Allergy to peanuts

== ENCOUNTER → 2019-10-18 | Outpatient (REF) | payer OTHER, SELFPAY ==
[~2019-10-18] MED LIST changes: +BACT800T5 PO; +OMEP40CA97 PO; +PERC5TAB12 PO
[2019-10-18 14:50] LABS: ALBUMIN 3.2 GM/DL (3.2-5.2); ALT/SGPT 59 U/L (12-78); BILIRUBIN,TOTAL 0.4 MG/DL (0.2-1.0); BLOOD UREA NITROGEN 12 MG/DL (7-18); CALCIUM LEVEL 9.3 MG/DL (8.5-10.1); CARBON DIOXIDE LEVEL 28 MEQ/L (21-32); CHLORIDE LEVEL 105 MEQ/L (98-107); CREATININE FOR GFR 1.06 MG/DL (0.70-1.30); GLOMERULAR FILTRATION RATE > 60.0 (>60); GLUCOSE, FASTING 65 MG/DL (70-100); POTASSIUM SERUM 5.1 MEQ/L (3.5-5.1); SODIUM LEVEL 139 MEQ/L (136-145); TOTAL PROTEIN 7.2 GM/DL (6.4-8.2)
[2019-10-22 20:07] LABS: HEPATITIS A IgG TOTAL Positive (Negative); HEPATITIS C QUANTITATION 5150250 IU/mL (.); HEPATITIS C VIRUS GENOTYPE 3 (.)
== END ==
LOC: M SFHCPLAZ 10:53
PROVIDERS: ATTEND Internal Medicine Infectious Disease
DX: B18.2 Chronic viral hepatitis C (principal)

== ENCOUNTER 2019-10-27 18:09 | Emergency (ER) | payer OTHER, SELFPAY ==
[~2019-10-27] VITALS: Ht 180.3 cm; Wt 80.3 kg
[~2019-10-27 18:09] MED LIST changes: -OMEP40CA97 PO; -PERC5TAB12 PO
--- NOTE | 2019-10-27 18:40 | REP ---
Right hand series: Four views. History: Injury. Findings: Four views right hand demonstrate a transversely oriented fracture through the distal diaphysis of the fifth metacarpal. There is apex dorsal angulation but no displacement. There is associated soft-tissue swelling. Impression: Angulated fracture of the distal aspect of the fifth metacarpal diaphysis. Electronically Signed by Gumaro Becker MD 10/27/2019 06:33 P
[2019-10-27] MEDS ORDERED: PERCOCET 5MG/325MG TAB PO ONE (19:30)
[2019-10-27] MEDS ORDERED: PERC5TAB12 PO (20:02)
[2019-10-27 20:09] VITALS: BP 137/82
== END 2019-10-27 20:18 | disposition home or self-care (01) ==
LOC: M ED 18:09
DX: S62.346A Nondisplaced fracture of base of fifth metacarpal bone, right hand, initial encounter for closed fracture (principal); W22.8XXA Striking against or struck by other objects, initial encounter; Y99.0 Civilian activity done for income or pay; Z91.010 Allergy to peanuts; Z91.013 Allergy to seafood

== ENCOUNTER 2019-12-14 20:11 | Emergency (ER) | payer OTHER ==
[~2019-12-14] VITALS: Ht 172.7 cm; Wt 81.8 kg
[~2019-12-14 20:11] MED LIST changes: +PERC5TAB12 PO
[2019-12-14] MEDS ORDERED: GI COCKTAIL 50ML BTL(HYOSCYAMINE/MAALOX/LIDOCAINE VISCOUS)(1:3:1) PO ONE (21:45)
[2019-12-14] MEDS ORDERED: OMEP40CA97 PO (22:12)
[2019-12-14 22:15] VITALS: BP 158/81
[2019-12-14] MEDS ORDERED: OMEPRAZOLE 20 MG CAP PO ONE (22:15)
== END 2019-12-14 22:32 | disposition home or self-care (01) ==
LOC: M ED 20:11
DX: R09.89 Other specified symptoms and signs involving the circulatory and respiratory systems (principal); B18.2 Chronic viral hepatitis C; F19.10 Other psychoactive substance abuse, uncomplicated; Z91.010 Allergy to peanuts; Z91.013 Allergy to seafood; Z79.899 Other long term (current) drug therapy

== ENCOUNTER 2020-06-28 16:04 | Emergency (ER) | payer OTHER ==
[~2020-06-28] VITALS: Ht 180.3 cm; Wt 72.7 kg
[~2020-06-28 16:04] MED LIST changes: +OMEP40CA97 PO
[2020-06-28 17:47] LABS: BASO # 0.1 10^3/uL (0.0-0.2); BASO % 0.7 % (0.0-1.0); EOS # 0.5 10^3/uL (0.0-0.5); EOS % 4.7 % (0.0-3.0); HEMATOCRIT 45.7 % (42.0-52.0); LYMPH # 2.1 10^3/uL (1.5-5.0); LYMPH % 19.2 % (24.0-44.0); MEAN CORPUSCULAR HEMOGLOBIN 26.1 pg (27.0-33.0); MEAN CORPUSCULAR HGB CONC 30.6 g/dl (32.0-36.5); MEAN CORPUSCULAR VOLUME 85.3 fl (80.0-96.0); MONO # 0.8 10^3/uL (0.0-0.8); MONO % 7.9 % (2.0-8.0); NEUTROPHILS # 7.2 10^3/uL (1.5-8.5); NEUTROPHILS % 67.1 % (36.0-66.0); PLATELET COUNT, AUTOMATED 445 10^3/uL (150-450); RED BLOOD COUNT 5.36 10^6/uL (4.30-6.10); WHITE BLOOD COUNT 10.7 10^3/uL (4.0-10.0)
[2020-06-28 18:12] LABS: ACETAMINOPHEN LEVEL < 2.0 UG/ML (10.0-30.0); AMPHETAMINES LEVEL URINE NEGATIVE (NEGATIVE); BARBITURATES URINE NEGATIVE (NEGATIVE); BENZODIAZEPINES URINE NEGATIVE (NEGATIVE); CANNABINOIDS URINE NEGATIVE (NEGATIVE); COCAINE METABOLITE URINE NEGATIVE (NEGATIVE); ETHYL ALCOHOL (ETHANOL) < 0.003 % (0.000-0.010); METHADONE URINE NEGATIVE (NEGATIVE); OPIATES URINE NEGATIVE (NEGATIVE); PHENCYCLIDINE URINE NEGATIVE (NEGATIVE); SALICYLATE LEVEL < 1.7 MG/DL (5.0-30.0)
[2020-06-28 19:11] LABS: HEPATITIS B SURFACE ANTIBODY POSITIVE (POSITIVE); HEPATITIS B SURFACE ANTIGEN NEGATIVE (NEGATIVE); HIV 1&2 SCREEN CENTAUR NEGATIVE (NEGATIVE)
[2020-06-28 19:12] LABS: HEPATITIS C VIRUS ABY INDEX > 11.0 INDEX (<0.8)
[2020-06-28 19:20] VITALS: BP 145/79
[2020-06-28 19:22] LABS: BLOOD UREA NITROGEN 13 MG/DL (7-18); CREATININE FOR GFR 0.78 MG/DL (0.70-1.30); GLOMERULAR FILTRATION RATE > 60.0 (>60); GLUCOSE, FASTING 82 MG/DL (70-100)
[2020-06-28 19:23] LABS: ALT/SGPT 39 IU/L (0-32); CALCIUM LEVEL 9.5 MG/DL (8.5-10.1); CARBON DIOXIDE LEVEL 31 mmol/L (20-29); CHLORIDE LEVEL 102 MEQ/L (98-107); POTASSIUM SERUM 4.5 MEQ/L (3.5-5.1); SODIUM LEVEL 139 MEQ/L (136-145)
[2020-06-28 19:24] LABS: ALBUMIN 3.8 GM/DL (3.2-5.2); BILIRUBIN,TOTAL 0.2 MG/DL (0.2-1.0)
== END 2020-06-28 19:22 | disposition home or self-care (01) ==
LOC: M ED 16:04
DX: Z77.21 Contact with and (suspected) exposure to potentially hazardous body fluids (principal); W46.1XXA Contact with contaminated hypodermic needle, initial encounter; Y92.830 Public park as the place of occurrence of the external cause; Y93.9 Activity, unspecified; Y99.9 Unspecified external cause status; F17.200 Nicotine dependence, unspecified, uncomplicated; G43.909 Migraine, unspecified, not intractable, without status migrainosus; F43.10 Post-traumatic stress disorder, unspecified; F20.9 Schizophrenia, unspecified; F41.9 Anxiety disorder, unspecified; Z91.010 Allergy to peanuts; Z91.013 Allergy to seafood

== ENCOUNTER 2020-08-07 15:33 | Emergency (ER) | payer OTHER ==
[~2020-08-07] VITALS: Ht 180.3 cm; Wt 72.7 kg
[2020-08-07] MEDS ORDERED: HYDR25OI TOP (19:26)
[2020-08-07 20:10] VITALS: BP 123/75
== END 2020-08-07 20:16 | disposition home or self-care (01) ==
LOC: M ED 15:33
DX: Z11.3 Encounter for screening for infections with a predominantly sexual mode of transmission (principal); L30.9 Dermatitis, unspecified; J45.909 Unspecified asthma, uncomplicated; G43.909 Migraine, unspecified, not intractable, without status migrainosus; Z91.010 Allergy to peanuts; Z91.013 Allergy to seafood; F17.200 Nicotine dependence, unspecified, uncomplicated

== ENCOUNTER 2020-10-19 21:21 | Emergency (ER) | payer OTHER ==
[~2020-10-19] VITALS: Ht 180.3 cm; Wt 78.2 kg
[2020-10-19 21:21] VITALS: BP 130/77
[~2020-10-19 21:21] MED LIST changes: +HYDR25OI TOP; +OMEP40CA4 PO; -OMEP40CA97 PO
== END 2020-10-19 22:48 | disposition left against medical advice (07) ==
LOC: M ED 21:21
DX: Z53.21 Procedure and treatment not carried out due to patient leaving prior to being seen by health care provider (principal)

== ENCOUNTER → 2021-01-01 | Outpatient (CLI) | payer OTHER | LOC: M PLALAB 10:12 | PROVIDERS: ATTEND Internal Medicine Infectious Disease | DX: B18.2 Chronic viral hepatitis C (principal) ==

== ENCOUNTER 2021-01-23 14:21 | Emergency (ER) | payer MEDICAID ==
[~2021-01-23] VITALS: Ht 180.3 cm; Wt 83.6 kg
[2021-01-23 14:21] VITALS: BP 131/60
--- OUTSIDE RECORDS SUMMARY | 2021-01-23 16:17 | CCD | Continuity of Care Document ---
Author Author Marlo FLORES DPMode Organization Unknown Address [address] [place] [address] Phone [phone] Care Team Providers Care Business Intelligence Architect Name Role Phone Reuben Coughlin DO AUTM Unavailable Problems Description No Information Available Social History Type Date Description Comments Sex Unknown Tobacco Use Start: Unknown End: Unknown Patient is a former smoker Smoking Status Reviewed: 01/02/21 Patient is a former smoker Allergies and adverse reactions Active Allergies Criticality Reaction | Severity Comments Date Peanut Unable to assess criticality 12/13/2020 Bee Sting Unable to assess criticality 12/13/2020 Medications Description No Active Medications Immunizations Description No Information Available Vital Signs Description No Information Available Results Description No Information Available Procedures Date Code Description Status 01/16/2021 63972 Destruction Benign L esions Other Than Skin Tags Or Cutan Vascular Completed 01/02/2021 66634 Destruction Benign L esions Other Than Skin Tags Or Cutan Vascular Completed 12/18/2020 02373 Office/Outpatient New MDM 15- 29 Minutes Completed 12/18/2020 85029 Destruction Benign L esions Other Than Skin Tags Or Cutan Vascular Completed Medical Devices Description No Information Available Encounters Description No Information Available Assessments Date Code Description Provider 01/16/2021 B07.0 Plantar wart Vlad Flores DPM 01/02/2021 B07.0 Plantar wart Vlad Flores DPM 12/18/2020 B07.0 Plantar wart Vlad Flores DPM Plan of Treatment Future Appointment(s):* 01/30/2021 10:30 am - Vlad Flores DPM at [facility] Podiatry 01/16/2021 - Vlad Flores DPM* B07.0 Plantar wart Functional Status Description No Information Available Mental Status Description No Information Available Referrals Description No Information Available"
--- OUTSIDE RECORDS SUMMARY | 2021-01-23 16:17 | CCD | Continuity of Care Document ---
Author Author Marlo HURLEY D.O. Organization Unknown Address [address] [place] [id number] Phone [phone] Problems Active Problems Provider Date Anxiety Alicia Lehman D., JASBIR-C Onset: 12/02 Acne vulgaris Linda Bruce FNP-BC Onset: 05/26/2015 Drug abuse Reuben Hurley D.O., [facility] Onset: 11/2016 Note: chronic intermittent hx Social History Type Date Description Comments Sex Unknown ETOH Use Consumes 2 beers per day Tobacco Use Start: Unknown Patient is a current smoker, smo kes every day 1/2 ppd for 6 years Recreational Drug Use Denies Drug Use Smoking Status Reviewed: 11/30/20 Patient is a current smoker, smokes every day 1/2 ppd for 6 years Allergies, Adverse Reactions, Alerts Active Allergies Criticality Reaction | Severity Comments Date Bee Sting Unable to assess criticality Urticaria | Moderate 09/22/2014 peanuts Unable to assess criticality Anaphylaxis, Urticaria | Severe 09/22/2014 Medications Active Medications SIG Qnty Indications Ordering Provide r Date Epipen 2-Manjinder 0.3mg/0 .3ML Solution Auto-Inject inject as directed 2units Reuben Hurley D.O., FAAFP 09/22/2014 History Medications Minocycline HCL 50mg Capsules 1 by mouth every day 90caps Reuben Hurley D.O., FAAFP 06/2020 - 08/30/2020 Immunizations CPT Code Status Date Vaccine Lot # [id number] Refused 02/12/2017 Influenza Virus Vaccine, Quadrivalent, Slit Virus, Im Use 3Y & Up Vital Signs Date Vital Result Comment 11/30/2020 9:43am BP Systolic 112 mmHg BP Diastolic 72 mmHg Body Temperature 97.8 F Heart Rate 72 /min Respiratory Rate 16 /min Height 69 inches 5'9" Weight 173.00 lb [place] Body Weight 160 lb BMI (Body Mass Index) 25.5 kg/m2 O2 % BldC Oximetry 98 % 09/14/2020 2:54pm BP Systolic 128 mmHg BP Diastolic 70 mmHg Body Temperature 97.2 F Heart Rate 78 /min Respiratory Rate 16 /min Height 69 inches 5'9" Weight 172.00 lb [place] Body Weight 160 lb BMI (Body Mass Index) 25.4 kg/m2 O2 % BldC Oximetry 99 % Results Test Acquired Date Facility Test Result H/L Range Note CBC With Differential 06/28/2020 [facility] (Interface) [phone] White Blood Count 10.7 10 High 4.0-10.0 Red Blood Count 5.36 10 Normal 4.30-6.10 Hemoglobin 14.0 g/dL Normal 13.5-17.5 Hematocrit 45.7 % Normal 42.0-52.0 Mean Corpuscular Volume 85.3 fl Normal 80.0-96.0 Mean Corpuscular Hemoglobin 26.1 pg Low 27.0-33.0 Mean Corpuscular HGB Conc 30.6 g/dL Low 32.0-36.5 Red Cell Distribution Width 18.6 % High 11.5-14.5 Platelet Count, Automated 445 10 Normal 150-450 Neutrophils % 67.1 % High 36.0-66.0 Lymph % 19.2 % Low 24.0-44.0 [place] % 7.9 % Normal 2.0-8.0 Eos % 4.7 % High 0.0-3.0 Baso % 0.7 % Normal 0.0-1.0 Immature Granulocyte % 0.4 % Normal 0-3.0 Nucleated Red Blood Cell % 0.0 % Normal 0-0 Neutrophils # 7.2 10 Normal 1.5-8.5 Lymph # 2.1 10 Normal 1.5-5.0 Stephenson # 0.8 10 Normal 0.0-0.8 Eos # 0.5 10 Normal 0.0-0.5 Baso # 0.1 10 Normal 0.0-0.2 Drug Eval Toxicology ED Only 06/28/2020 [facility] (Interface) [phone] Amphetamines Level Urine NEGATIVE Normal Negativ e Barbiturates Urine NEGATIVE Normal Negative Benzodiazepines Urine NEGATIVE Normal Negative Cannabinoids Urine NEGATIVE Normal Negative Cocaine Metabolite Urine NEGATIVE Normal Negative Methadone Urine NEGATIVE Normal Negative Opiates Urine NEGATIVE Normal Negative Phencyclidine Urine NEGATIVE Normal Negative 1 Laboratory test finding 06/28/2020 [facility] (Interface) [phone] Ethyl Alcohol (Ethanol) < 0.003 % Normal 0.000-0. 010 2 Salicylate Level < 1.7 mg/dL Low 5.0-30.0 3 Acetaminophen Level < 2.0 UG/ML Low 10.0-30.0 4 Comprehensive Metabolic Profil 06/28/2020 [facility] (Interface) [phone] Glucose, Fasting 82 mg/dL Normal 70-100 Blood Urea Nitrogen 13 mg/dL Normal 7-18 Creatinine For GFR 0.78 mg/dL Normal 0.70-1.30 Glomerular Filtration Rate > 60.0 Normal >60 5 Sodium Level 139 mEq/L Normal 136-145 Potassium Serum 4.5 mEq/L Normal 3.5-5.1 Chloride Level 102 mEq/L Normal 98-107 Carbon Dioxide Level 31 mmol/L High 20-29 Anion Gap 6 mEq/L Low 8-16 Calcium Level 9.5 mg/dL Normal 8.5-10.1 Ast/Sgot 36 IU/L Normal Alt/SGPT 39 IU/L High 0-32 Alkaline Phosphatase 115 U/L Normal 45-117 Bilirubin,Total 0.2 mg/dL Normal 0.2-1.0 Total Protein 8.0 GM/DL Normal 6.4-8.2 Albumin 3.8 GM/DL Normal 3.2-5.2 Albumin/Globulin Ratio 0.9 Normal Laboratory test finding 06/28/2020 [facility] (Interface) [phone] Hepatitis C Virus [place] Index > 11.0 INDEX High <0 .8 6 Hepatitis B Surface Antigen NEGATIVE Normal Negative 7 Hepatitis B Surface Antibody POSITIVE Normal Positive 8 HIV 1&2 Screen Centaur NEGATIVE Normal Negative 9 HCV Rna Rosangela Qualitative Positive Abnormal Negative 10 1 ALL PRESUMPTIVE POSITIVE FINDINGS ARE UNCONFIRMED THRESHOLD IN NG/ML AMPHETAMINES/METHAMPHET 1000 BARBITURATES 200 BENZODIAZEPINES 200 CANNABINOIDS (THC) 50 COCAINE METABOLITE 300 METHADONE 300 OPIATES 300 PHENCYCLIDINE 25 RESULTS ARE FOR MEDICAL PURPOSES ONLY. ALL URINE SPECIMENS WILL BE SAVED FOR 3 DAYS. IF CONFIRMATION OF A PRESUMPTIVE POSITIVE SCREEN RESULT IS DESIRED, CALL CHEMISTRY ([phone]) AND REQUEST URINE TO BE SENT TO REFERENCE LAB. FOR A LIST OF CLOSELY RELATED COMPOUNDS PLEASE CALL THE LAB. 2 note:<nlbl:demographic_chang ed> 3 note:<nlbl:demographic_chang ed> 4 note:<nlbl:demographic_chang ed> 5 Units are mL/min/1.73 m2 Chronic Kidney Disease Staging per NKF: Stage I & II GFR >=60 Normal to Mildly Decreased Stage III GFR 30-59 Moderately Decreased Stage IV GFR 15-29 Severely Decreased Stage V GFR <15 Very Little GFR Left ESRD GFR <15 on FIBERGLASS AUTOBODY REPAIRER 6 This screening test for Hepa titis C Virus was above the 1.0 cutoff index value and will be sent to reference lab Laboratory [facility], [address] [place] [address]. Kari Martinez. [id number] for Hep C RNA ROSANGELA testing to confirm or exclude active Hepatitis C Virus infection. Screening test Positive samples with high index values (>11.0) usually (95%) confirm Positive, but <5 of every 100 samples with this result might be a false positive and Hep C RNA ROSANGELA testing will aid in patient management. 7 note:<nlbl:demographic_chang ed> 8 note:<nlbl:demographic_chang ed> 9 This assay was performed uti lizing a chemiluminescent principle technique for the simultaneous qualitative detection of HIV-1 p24 antigen & antibodies to HIV-1 (including group O) & HIV-2 using the Auto[employer]ike system. The estimated 95% confidence interval for sensitivity of this antigen/antibody combination assay for HIV-1&2 antibodies is 99.7-100% and HIV p24 antigen is 89.4-99.9%. The estimated 95% confidence interval for specificity of this antigen/antibody combination in low risk populations is 99.6-99.8%. 10 Positive: HCV RNA Detected Performed at: [address] [id number] Director Of Software Engineering: Miriam Louis MD, Phone: [phone] Procedures Date Code Description Status 09/14/2020 10737 Office/Outpatient Established Mo d MDM 30-39 Min Completed 08/30/2020 56729 Office/Outpatient Established Lo w MDM 20-29 Min Completed 06/07/2020 81817 Office/Outpatient Established Mo d MDM 30-39 Min Completed Medical Devices Description No Information Available Encounters Type Date Location Provider Dx Diagnosis Office Visit 09/14/2020 2:45p [place] [facility] Tejal Walter, FAAFP B17.10 Acute hepatitis C without hepatic coma L70.0 Acne vulgaris Z20.2 Contact w and exposure to in fect w a sexl mode of transmiss Office Visit 08/30/2020 2:20p [place] [facility] Saul Hebert, RP A R53.83 Other fatigue Z20.2 Contact w and exposure to in fect w a sexl mode of transmiss A54.00 Gonococcal infection of lowe r genitourinary tract, unsp A74.9 Chlamydial infection, unspec ified B17.10 Acute hepatitis C without he patic coma S00.06xA Insect bite (nonvenomous) of scalp, initial encounter Office Visit 06/07/2020 1:15p [place] [facility] Yuniel Walter, FAAFP L70.0 Acne vulgaris B18.2 Chronic viral hepatitis C Assessments Date Code Description Provider 09/14/2020 B17.10 Acute hepatitis C without hepati c coma Reuben Hurley D.O., FAAFP 09/14/2020 L70.0 Acne vulgaris Reuben Hurley D.O., FAAFP 09/14/2020 Z20.2 Contact with and (suspected) exp osure to infections with a p Reuben Hurley D.O., FAAFP 08/30/2020 R53.83 Other fatigue Saul Hebert, RPA 08/30/2020 Z20.2 Contact with and (jerez spected) exposure to infections with a predominantly sexual mode of transmission Saul Hebert, RPA 08/30/2020 A54.00 Gonococcal infection of lower genitourinary tract, unspecified Saul Hebert, RPA 08/30/2020 A74.9 Chlamydial infection, unspecifie d Saul Hebert, RPA 08/30/2020 B17.10 Acute hepatitis C without hepati c coma Saul Hebert, RPA 08/30/2020 S00.06xA Insect bite (nonvenomous) of sca lp, initial encounter Saul Hebert, RPA 06/07/2020 L70.0 Acne vulgaris Reuben Hurley D.O., FAAFP 06/07/2020 B18.2 Chronic viral hepatitis C Ariella Hurley D.O., LIZFP Plan of Treatment Future Appointment(s):* 12/26/2020 9:15 am - Reuben Hurley D.O., FAAFP at [facility] Functional Status Description No Information Available Mental Status Description No Information Available Referrals Refer to Reason for Referral Status Appt Date [facility] Dermatology severe acne/ cystic /on back with scarr ing please eval Sent [address] [address] [phone]
--- OUTSIDE RECORDS SUMMARY | 2021-01-23 16:17 | CCD ---
Author Author [facility] Organization [facility] Address Unknown Phone Unavailable Care Team Providers Care Travel Ticketing Reviewer Name Role Phone Kacie Castle Unavailable PROBLEMS Type Condition ICD9-CM Code [id number] Code Onset Dates Condition S tatus W/U Status Risk SNOMED Code Notes Problem IVDU (intravenous drug user) F19.90 Active confirme d [id number] Problem Chronic hepatitis C without hepatic coma B18.2 Active confirmed [id number] Problem Cocaine use F14.90 Active confirmed [id number] 0 ALLERGIES No Known Allergies ENCOUNTERS from 1995 to 2021-01-15 Encounter Location Date Provider Diagnosis [facility] [place] [address] [facility] [phone] [place] [address] Dec, Kacie Castle Chronic hepatitis C without hepatic coma B18.2 ; IVDU (intravenous drug user) F19.90 and Cocaine use F14.90 IMMUNIZATIONS Vaccine Route Administration Date Status TDAP 0.5mL (Boostrix) Unknown Mar 03, 2007 Administer ed Hepatitis B Ped & Adol 0.5mL Engerix-B Unknown Nov 08, 1 994 Administered Hepatitis B Ped & Adol 0.5mL Engerix-B Unknown Apr 19, 994 Administered Hepatitis B Ped & Adol 0.5mL Engerix-B Unknown Mar 19 993 Administered Hepatitis B Adult 1.0mL Engerix-B Unknown Mar 14, 2008 Administered Hepatitis B Adult 1.0mL Engerix-B Unknown Mar 03, 2007 Administered SOCIAL HISTORY Tobacco Use: Social History Observation Description Date Details (start date - stop date) Former Smoker Sex Assigned At : Social History Observation Description Sex Assigned At Unknown Audit Question Answer Notes Total Score: 4 Interpretation: Alcohol Education Language: Question Answer Notes Languages spoken: Turkish Sexual Hx: Question Answer Notes Had sex in the last 12 months (vaginal, oral, or anal)? Yes Have you ever had an STD? No with Women only Use protection? No Drug and Alcohol Question Answer Notes Total Score: 2 Interpretation: Low level Tobacco Use: Question Answer Notes Are you a: former smoker REASON FOR REFERRAL No Information VITAL SIGNS Weight 180 lbs Dec, Weight-kg 81.65 kg Dec, Height 5'9" in Dec, BMI 26.58 kg/m2 Dec, Heart Rate 105 /min Dec, Respiratory Rate 18 /min Dec, Temperature 98 degrees Fahrenheit Dec, Oximetry 100% Dec, Blood pressure systolic 124 mm Hg Dec, Blood pressure diastolic 72 mm Hg Dec, MEDICATIONS Medication SIG (Take, Route, Frequency, Duration) Notes Start Da te End Date Status Epclusa 400-100 MG 1 tablet Orally Once a day for 28 day(s) Active PROCEDURES No Information RESULTS Component Value Reference Range HEPATITIS C FIBROSURE [id number] Reviewed date:01/04/2021 16:55:21 Interpretation: Performing Lab:[facility] [address] [facility] [id number] , ,[place] [address] FIBROSIS SCORE 0.04 0.00-0.21 FIBROSIS STAGE . NECROINFLAM SCORE 0.12 0.00-0.17 NECROINFLAMM GRADE A0-No activity . ALPHA 2-MACROGLOBULIN 144 110-276 HAPTOGLOBIN 189 17-317 APOLIPOPROTEIN A-1 154 101-178 TOTAL BILIRUBIN 0.3 0.0-1.2 GGT 33 0-65 ALT 33 0-55 INTERPRETATION . FIBROSIS SCORING . NECROINFLAM SCORING . LIMITATIONS . COMMENT : . HEPATITIS C QUANT BY PCR Reviewed date:01/04/2021 16:55:21 Interpretation: Performing Lab:[facility] [address] [facility] [address] , ,[place] [address] HEPATITIS C QUANTITATION 040907 . Hepatitis C log10 5.155 . 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 Hepatitis C genotype 3. Will recheck viral load and fibrosure. He recalls being vaccinated for hepatitis B and hepatitis A, labs confirm immunity. He was given information regarding treatment with Epclusa through [facility] 1 tablet daily for a total of 12 weeks. We'll get prior authorization. Patient was advised to take it at bedtime as it gives you side effects fatigue headache and nausea Patient was advised to remain abstinent from alcohol and drugs. Dec, IVDU (intravenous drug user) (ICD-10 - F19.90) Advised to remain abstinent of alcohol and drugs. Dec, Cocaine use (ICD-10 - F14.90) Urine drug screen was positive on 08/30/18 for cocaine and marijuana alcohol negative PLAN OF TREATMENT Medication Medication Name Sig Start Date Stop Date Epclusa 400-100 MG 1 tablet Orally Once a day for 28 day(s) Treatment Notes Assessment Notes Clinical Notes Chronic hepatitis C without hepatic coma Labs done on 09/26/19 hepatitis C antibody> 11, HCV RNA positive hepatitis B surface antigen negative hepatitis B surface antibody positive HIV negative syphilis nonreactive. Hepatitis C genotype 3. Will recheck viral load and fibrosure.He recalls being vaccinated for hepatitis B and hepatitis A, labs confirm immunity.He was given information regarding treatment with Epclusa through [facility] 1 tablet daily for a total of 12 weeks. We'll get prior authorization. Patient was advised to take it at bedtime as it gives you side effects fatigue headache and nauseaPatient was advised to remain abstinent from alcohol and drugs. IVDU (intravenous drug user) Advised to remain abstinent of alcohol and drugs. Cocaine use Urine drug screen wa s positive on 08/30/18 for cocaine and marijuana alcohol negative Next Appt Details 4 Weeks Reason:hep C Provider Name:Kacie Castle, 2021-10-2 5 07:30:00 AM, [address] [facility], , [place], [address], Follow Up:4 Weekshep C Insurance Providers Payer Name Payer Address Payer Phone Insured Name Patient Relati onship to Insured Coverage Start Date Coverage End Date [facility] CLAIM[facility] DEPT [address] [facility] [phone] MAXIME STEWART self
--- OUTSIDE RECORDS SUMMARY | 2021-01-23 16:17 | CCD ---
Author Author [facility] [email or web address] Organization [facility] [email or web address] Address Unknown Phone Unavailable Care Team Providers Care Supervisor Operations Name Role Phone Kacie Castle Unavailable PROBLEMS Type Condition ICD9-CM Code [id number] Code Onset Dates Condition S tatus W/U Status Risk SNOMED Code Notes Problem IVDU (intravenous drug user) F19.90 Active confirme d 335257538 Problem Chronic hepatitis C without hepatic coma B18.2 Active confirmed 398564374 Problem Cocaine use F14.90 Active confirmed 37562058 0 ALLERGIES No Known Allergies ENCOUNTERS from 1993 to 2021-01-16 Encounter Location Date Provider Diagnosis [address] [phone] [place] [address] Jan, Kacie Castle IMMUNIZATIONS Vaccine Route Administration Date Status TDAP 0.5mL (Boostrix) Unknown Mar 03, 2007 Administer ed Hepatitis B Ped & Adol 0.5mL Engerix-B Unknown Nov 08, 1 994 Administered Hepatitis B Ped & Adol 0.5mL Engerix-B Unknown Apr 19 994 Administered Hepatitis B Ped & Adol [...] Education Language: Question Answer Notes Languages spoken: Indonesian Sexual Hx: Question Answer Notes Had sex in the last 12 months (vaginal, oral, or anal)? Yes Have you ever had an STD? No with Women only Use protection? No Drug and Alcohol Question Answer Notes Total Score: 2 Interpretation: Low level Tobacco Use: Question Answer Notes Are you a: former smoker REASON FOR REFERRAL No Information VITAL SIGNS No information MEDICATIONS Medication SIG (Take, Route, Frequency, Duration) Notes Start Da te End Date Status Epclusa 400-100 MG 1 tablet Orally Once a day for 28 day(s) Active PROCEDURES No Information RESULTS No Results REASON FOR VISIT Epclusa 400-100 MG Tablet MEDICAL (GENERAL) HISTORY Type Description Date Medical [...] No Surgical history information Hospitalization History as undeveloped lungs Goals Section No Information Health Concerns No Information MEDICAL EQUIPMENT No Information MENTAL STATUS No Information FUNCTIONAL STATUS No Information ASSESSMENTS No Information PLAN OF TREATMENT Medication Medication Name Sig Start Date Stop Date Epclusa 400-100 MG 1 tablet Orally Once a day for 28 day(s) Next Appt Details Provider Name:Kacie Estrada Tin, 2020-10-2 5 07:30:00 AM, [address] [place] [address], [place], [address], Insurance Providers Payer Name Payer Address Payer Phone Insured Name Patient Relati onship to Insured Coverage Start Date Coverage End Date [facility] CLAIMS DEPT [place] [phone] MAXIME STEWART self
--- OUTSIDE RECORDS SUMMARY | 2021-01-23 16:17 | CCD | Continuity of Care Document ---
Author Author Marlo FLORES DPM Organization Unknown Address [address] [place] [address] Phone [phone] Care Team Providers Care Heavy Equipment Rental Manager Name Role Phone Reuben Coughlin DO AUTM Unavailable Problems Description No Information Available Social History Type Date Description Comments Sex Unknown Tobacco Use Start: Unknown End: Unknown Patient is a former smoker Smoking Status Reviewed: 12/18/20 Patient is a former smoker Allergies, Adverse Reactions, Alerts Active Allergies Criticality Reaction | Severity Comments Date Peanut Unable to assess criticality 12/13/2020 Bee Sting Unable to assess criticality 12/13/2020 Medications Description No Active Medications Immunizations Description No Information Available Vital Signs Description No Information Available Results Description No Information Available Procedures Date Code Description Status 01/02/2021 61126 Destruction Benign L esions Other Than Skin Tags Or Cutan Vascular Completed 12/18/2020 74779 Office/Outpatient [facility] 15- 29 Minutes Completed 12/18/2020 38682 Destruction Benign L esions Other Than Skin Tags Or Cutan Vascular Completed Medical Devices Description No Information Available Encounters Description No Information Available Assessments Date Code Description Provider 01/02/2021 B07.0 Plantar wart Vlad Flores DPM 12/18/2020 B07.0 Plantar wart Vlad Flores DPM Plan of Treatment Future Appointment(s):* 01/16/2021 10:30 am - Vlad [facility] DPM at [facility] Podiatry 01/02/2021 - Vlad Flores DPM* B07.0 Plantar wart Functional Status Description No Information Available Mental Status Description No Information Available Referrals Description No Information Available"
--- OUTSIDE RECORDS SUMMARY | 2021-01-23 16:17 | CCD ---
Author Author [facility] Organization [facility] Address Unknown Phone Unavailable Care Team Providers Care Patient Financial Representative Name Role Phone Kacie Castle Unavailable PROBLEMS Type Condition ICD9-CM Code [id number] Code Onset Dates Condition S tatus W/U Status Risk SNOMED Code Notes Problem IVDU (intravenous drug user) F19.90 Active confirme d 183814728 Problem Chronic hepatitis C without hepatic coma B18.2 Active confirmed 721861946 Problem Cocaine use F14.90 Active confirmed 37424711 0 ALLERGIES No Known Allergies ENCOUNTERS from 1993 to 2021-01-12 Encounter Location Date Provider Diagnosis [address] [phone] [place] [address] 08 Jan, 2021 Kacie Castle Chronic hepatitis C without hepatic coma B18.2 IMMUNIZATIONS Vaccine Route Administration Date Status TDAP 0.5mL (Boostrix) Unknown Mar 03, 2007 Administer ed Hepatitis B Ped & Adol 0.5mL Engerix-B Unknown Nov 08, 1 994 Administered Hepatitis B Ped & Adol 0.5mL Engerix-B Unknown Apr 19, 994 Administered Hepatitis B Ped & Adol 0.5mL Engerix-B Unknown Mar 19, 993 Administered Hepatitis B Adult 1.0mL Engerix-B [...] Education Language: Question Answer Notes Languages spoken: Colombian Sexual Hx: Question Answer Notes Had sex [...] Information RESULTS No Results REASON FOR VISIT epclusa MEDICAL (GENERAL) HISTORY Type Description Date Medical [...] Notes Treatment Notes Treatm ent Clinical Notes Jan, Chronic hepatitis C without hepatic coma (ICD-10 - B18.2) PLAN OF TREATMENT Medication Medication Name Sig Start Date Stop Date Epclusa 400-100 MG 1 tablet Orally Once a day for 28 day(s) Next Appt Details Provider Name:Kacie Castle, 2020-10-2 5 07:30:00 AM, [address] [place] [address], , [place], [address], Insurance Providers Payer Name Payer Address Payer Phone Insured Name Patient Relati onship to Insured Coverage Start Date Coverage End Date PENDING SALE TO [facility] [employer]PORATE CLAIMS DEPT [address] [place] [phone] MAXIME STEWART self
--- OUTSIDE RECORDS SUMMARY | 2021-01-23 16:17 | CCD | Continuity of Care Document ---
Author Author Marlo HURLEY D.O. Organization Unknown Address [address] [place] [address] Phone [phone] Problems Active Problems Provider Date Anxiety Alicia Lehman D., ADVERTISING ACCOUNT EXECUTIVE-C Onset: 12/02 Acne vulgaris Linda Bruce, ADVERTISING ACCOUNT EXECUTIVE-BC Onset: 05/26/2015 Drug abuse Reuben Hurley D.O., FAAARIN Onset: 11/2016 Note: chronic intermittent hx Vaccine refused by patient Reuben Hurley D.O., FAAARIN Onse t: 11/30/2020 Note: COVID-may think about getting it Social History Type Date Description Comments Sex Unknown ETOH Use Consumes 2 beers per day Tobacco Use Start: Unknown Patient is a current smoker, smo kes every day 1/2 ppd for 6 years Recreational Drug Use Denies Drug Use Smoking Status Reviewed: 06/07/20 Patient is a current smoker, smokes every [...] mouth every day 90caps Reuben Hurley D.O., LIZFP 06/2020 - 08/30/2020 Immunizations CPT Code Status Date Vaccine Lot # [id number] Refused 02/12/2017 Influenza Virus Vaccine, Quadrivalent, Slit Virus, Im Use 3Y & Up Vital Signs Date Vital Result Comment 11/30/2020 9:43am BP Systolic 112 mmHg BP Diastolic 72 mmHg Body Temperature 97.8 F Heart Rate 72 /min Respiratory Rate 16 /min Height 69 inches 5'9" Weight 173.00 lb [place] Body Weight 160 lb BMI (Body Mass Index) 25.5 kg/m2 O2 % BldC Oximetry 98 % 09/14/2020 2:54pm BP Systolic 128 mmHg BP Diastolic 70 mmHg Body Temperature 97.2 F Heart Rate 78 /min Respiratory Rate 16 /min Height 69 inches 5'9" Weight 172.00 lb [place] Body Weight 160 lb BMI (Body Mass Index) 25.4 kg/m2 O2 % BldC Oximetry 99 % Results Test Acquired Date Facility Test Result H/L Range Note CBC With Differential 06/28/2020 [facility] ([facility]) [phone] White Blood Count 10.7 10 High 4.0-10.0 [...] 36.0-66.0 Lymph % 19.2 % Low 24.0-44.0 [place] % 7.9 % Normal 2.0-8.0 Eos % 4.7 % High 0.0-3.0 Baso % 0.7 % Normal 0.0-1.0 Immature Granulocyte % 0.4 % Normal 0-3.0 Nucleated Red Blood Cell % 0.0 % Normal 0-0 Neutrophils # 7.2 10 Normal 1.5-8.5 Lymph # 2.1 10 Normal 1.5-5.0 [place] # 0.8 10 Normal 0.0-0.8 Eos # 0.5 10 Normal 0.0-0.5 Baso # 0.1 10 Normal 0.0-0.2 Drug Eval Toxicology ED Only 06/28/2020 [facility] (Interface) [phone] Amphetamines Level Urine NEGATIVE Normal Negativ e Barbiturates Urine NEGATIVE Normal Negative Benzodiazepines Urine NEGATIVE Normal Negative Cannabinoids Urine NEGATIVE Normal Negative Cocaine Metabolite Urine NEGATIVE Normal Negative Methadone Urine NEGATIVE Normal Negative Opiates Urine NEGATIVE Normal Negative Phencyclidine Urine NEGATIVE Normal Negative 1 Laboratory test finding 06/28/2020 [facility] (Interface) [phone] Ethyl Alcohol (Ethanol) < 0.003 % Normal 0.000-0. 010 2 Salicylate Level < 1.7 mg/dL Low 5.0-30.0 3 Acetaminophen Level < 2.0 UG/ML Low 10.0-30.0 4 Comprehensive Metabolic Profil 06/28/2020 [facility] (Interface) [phone] Glucose, Fasting 82 mg/dL Normal 70-100 Blood [...] Ratio 0.9 Normal Laboratory test finding 06/28/2020 [facility] (Interface) [phone] Hepatitis C Virus Waleska Index > 11.0 [...] Little GFR Left ESRD GFR <15 on FOLEY ARTIST 6 This screening test for Hepa titis C Virus was above the 1.0 cutoff index value and will be sent to reference lab Laboratory [facility], [address] [place] [address]. Kari Martinez. [address] for Hep C RNA ROSANGELA testing to [...] (including group O) & HIV-2 using the TargetX system. The estimated 95% confidence interval for sensitivity of this antigen/antibody combination assay for HIV-1&2 antibodies is 99.7-100% and HIV p24 antigen is 89.4-99.9%. The estimated 95% confidence interval for specificity of this antigen/antibody combination in low risk populations is 99.6-99.8%. 10 Positive: HCV RNA Detected Performed at: [address] [id number] Snag Grinder: Miriam Louis MD, Phone: [phone] Procedures Date Code Description Status 11/30/2020 59678 Paring Benign Hyperkeratoric Sin gle [place] Or Callus Completed 09/14/2020 82816 Office/Outpatient Established Mo d MDM 30-39 Min Completed 08/30/2020 05850 Office/Outpatient Established Lo w MDM 20-29 Min Completed 06/07/2020 46285 Office/Outpatient Established Mo d MDM 30-39 Min Completed Medical Devices Description No Information Available Encounters Type Date Location Provider Dx Diagnosis Office Visit 09/14/2020 2:45p [place] [facility] Tejal Walter, FAAFP B17.10 Acute hepatitis C without hepatic coma L70.0 Acne vulgaris Z20.2 Contact w and exposure to in fect w a sexl mode of transmiss Office Visit 08/30/2020 2:20p [facility] [facility] Saul Hebert, RP A R53.83 Other fatigue Z20.2 Contact w and exposure to in fect w a sexl mode of transmiss A54.00 Gonococcal infection of lowe r genitourinary tract, unsp A74.9 Chlamydial infection, unspec ified B17.10 Acute hepatitis C without he patic coma S00.06xA Insect bite (nonvenomous) of scalp, initial encounter Office Visit 06/07/2020 1:15p [place] [facility] Yuniel Walter, FAAFP L70.0 Acne vulgaris B18.2 Chronic viral hepatitis C Assessments Date Code Description Provider 11/30/2020 L84 Corns and callosities Reuben Hurley D.O., FAAFP 09/14/2020 B17.10 Acute hepatitis C without hepati [...] C without hepati c coma Saul Hebert, [facility] 08/30/2020 S00.06xA Insect bite (nonvenomous) of sca lp, initial encounter Saul Hebert, RPA 06/07/2020 L70.0 Acne vulgaris Reuben Hurley D.O., FAAFP 06/07/2020 B18.2 Chronic viral hepatitis C Ariella Hurley D.O., FAAFP Plan of Treatment Future Appointment(s):* 12/26/2020 9:15 am - Reuben Hurley D.O., LIZFP at [facility] Functional Status Description No Information Available Mental Status Description No Information Available Referrals Refer to Reason for Referral Status Appt Date [facility] Dermatology severe acne/ cystic /on back with scarr ing please eval Sent [address] [place] [address] [phone]
--- OUTSIDE RECORDS SUMMARY | 2021-01-23 16:17 | CCD | Continuity of Care Document ---
Author Author Marlo FLORES DPM Organization Unknown Address [address] [place] [address] Phone [phone] Care Team Providers Care Db2 Dba Name Role Phone Reuben Coughlin DO AUTM Unavailable Problems Description No Information Available Social History Type Date Description Comments Sex Unknown Tobacco Use Start: Unknown End: Unknown Patient is a former smoker Allergies, Adverse Reactions, Alerts Active Allergies Criticality Reaction | Severity Comments Date Peanut Unable to assess criticality 12/13/2020 Bee Sting Unable to assess criticality 12/13/2020 Medications Description No Active Medications Immunizations Description No Information Available Vital Signs Description No Information Available Results Description No Information Available Procedures Description No Information Available Medical Devices Description No Information Available Encounters Description No Information Available Assessments Description No Information Available Plan of Treatment Future Appointment(s):* 01/01/2021 9:30 am - Vlad Flores DPM at [facility] Podiatry Functional Status Description No Information Available Mental Status Description No Information Available Referrals Description No Information Available"
--- OUTSIDE RECORDS SUMMARY | 2021-01-23 16:17 | CCD | Continuity of Care Document ---
Author Author Marlo HURLEY D.O. Organization Unknown Address [address] [place] [address] Phone [phone] Problems Active Problems Provider Date Anxiety Alicia Lehman D., DIRECTOR BLOOD BANK-C Onset: 12/02 Acne vulgaris Linda Bruce, DIRECTOR BLOOD BANK-BC Onset: 05/26/2015 Drug abuse Reuben Hurley D.O., BECCA Onset: 11/2016 Note: chronic intermittent hx Vaccine refused by patient Reuben Hurley D.O., BECCA Onse t: 11/30/2020 Note: COVID and FLU -may think about g etting it Social History Type Date Description Comments Sex Unknown ETOH Use Consumes 2 beers per day Tobacco Use Start: Unknown Patient is a current smoker, smo kes every day 1/2 ppd for 6 years Recreational Drug Use Denies Drug Use Smoking Status Reviewed: 12/07/20 Patient is a current smoker, smokes every [...] inject as directed 2units Reuben Hurley D.O., BECCA 09/22/2014 Immunizations CPT Code Status Date Vaccine Lot # [id number] Refused 12/13/2020 Influenza Virus Vaccine, Quadrivalent, Slit Virus, Im Use 3Y & Up 72959 Refused 02/12/2017 Influenza Virus Vaccine, Quadrivalent, Slit Virus, Im Use 3Y & Up Vital Signs Date Vital Result Comment 12/13/2020 9:13am BP Systolic 128 mmHg BP Diastolic 62 mmHg Body Temperature 97.5 F Heart Rate 109 /min Respiratory Rate 16 /min Height 69 inches 5'9" Weight 180.00 lb [place] Body Weight 160 lb BMI (Body Mass Index) 26.6 kg/m2 O2 % BldC Oximetry 98 % 12/07/2020 11:15am BP Systolic 126 mmHg BP Diastolic 56 mmHg Body Temperature 97.5 F Heart Rate 74 /min Respiratory Rate 18 /min Height 69 inches 5'9" Weight 178.00 lb [place] Body Weight 160 lb BMI (Body Mass Index) 26.3 kg/m2 O2 % BldC Oximetry 98 % Results Test Acquired Date Facility Test Result H/L Range Note CBC With Differential 06/28/2020 [facility] ([facility]) [phone] White Blood Count 10.7 10 High 4.0-10.0 [...] 36.0-66.0 Lymph % 19.2 % Low 24.0-44.0 [place] % 7.9 % Normal 2.0-8.0 Eos % 4.7 % High 0.0-3.0 Baso % 0.7 % Normal 0.0-1.0 Immature Granulocyte % 0.4 % Normal 0-3.0 Nucleated Red Blood Cell % 0.0 % Normal 0-0 Neutrophils # 7.2 10 Normal 1.5-8.5 Lymph # 2.1 10 Normal 1.5-5.0 [place] # 0.8 10 Normal 0.0-0.8 Eos # 0.5 10 Normal 0.0-0.5 Baso # 0.1 10 Normal 0.0-0.2 Drug Eval Toxicology ED Only 06/28/2020 [facility] (Interface) [phone] Amphetamines Level Urine NEGATIVE Normal Negativ e Barbiturates Urine NEGATIVE Normal Negative Benzodiazepines Urine NEGATIVE Normal Negative Cannabinoids Urine NEGATIVE Normal Negative Cocaine Metabolite Urine NEGATIVE Normal Negative Methadone Urine NEGATIVE Normal Negative Opiates Urine NEGATIVE Normal Negative Phencyclidine Urine NEGATIVE Normal Negative 1 Laboratory test finding 06/28/2020 [facility] (Interface) [phone] Ethyl Alcohol (Ethanol) < 0.003 % Normal 0.000-0. 010 2 Salicylate Level < 1.7 mg/dL Low 5.0-30.0 3 Acetaminophen Level < 2.0 UG/ML Low 10.0-30.0 4 Comprehensive Metabolic Profil 06/28/2020 [facility] (Interface) [phone] Glucose, Fasting 82 mg/dL Normal 70-100 Blood [...] Ratio 0.9 Normal Laboratory test finding 06/28/2020 [facility] (Interface) [phone] Hepatitis C Virus [place] Index > 11.0 [...] Little GFR Left ESRD GFR <15 on CLAIMS PROCESSOR 6 This screening test for Hepa titis C Virus was above the 1.0 cutoff index value and will be sent to reference lab Laboratory [facility], [address] [place], [place] [address]. Kari Martinez. [address] for Hep C RNA ROSANGELA testing to [...] (including group O) & HIV-2 using the [employer] system. The estimated 95% confidence interval for sensitivity of this antigen/antibody combination assay for HIV-1&2 antibodies is 99.7-100% and HIV p24 antigen is 89.4-99.9%. The estimated 95% confidence interval for specificity of this antigen/antibody combination in low risk populations is 99.6-99.8%. 10 Positive: HCV RNA Detected Performed at: [address] [id number] Professional [employer] Representative: Miriam Louis MD, Phone: [phone] Procedures Date Code Description Status 12/13/2020 45805 Office/Outpatient Established Lo w MDM 20-29 Min Completed 12/07/2020 76750 Office/Outpatient Established Lo w MDM 20-29 Min Completed 12/07/2020 76955 Paring Benign Hyperkeratoric Sin gle [place] Or Callus Completed 11/30/2020 70178 Paring Benign Hyperkeratoric Sin gle [place] Or Callus Completed 09/14/2020 61345 Office/Outpatient Established Mo d MDM 30-39 Min Completed 08/30/2020 12090 Office/Outpatient Established Lo w MDM 20-29 Min Completed Medical Devices Description No Information Available Encounters Type Date Location Provider Dx Diagnosis Office Visit 12/13/2020 9:00a [place] [facility] Yuniel Walter, FAAFP M79.672 Pain in left foot Office Visit 12/07/2020 11:00a [place] [facility] Tejal Walter, FAAFP L84 Corns and callosities Office Visit 09/14/2020 2:45p [place] [facility] Tejal Walter, FAAFP B17.10 Acute hepatitis C without hepatic coma L70.0 Acne vulgaris Z20.2 Contact w and exposure to in fect w a sexl mode of transmiss Office Visit 08/30/2020 2:20p [place] [facility] Saul Hebert, RP A R53.83 Other fatigue Z20.2 Contact w and exposure to in fect w a sexl mode of transmiss A54.00 Gonococcal infection of lowe r genitourinary tract, unsp A74.9 Chlamydial infection, unspec ified B17.10 Acute hepatitis C without he patic coma S00.06xA Insect bite (nonvenomous) of scalp, initial encounter Assessments Date Code Description Provider 12/13/2020 M79.672 Pain in left foot Reuben soriano D.O., FAAFP 12/07/2020 L84 Corns and callosities Reuben Hurley D.O., FAAFP 11/30/2020 L84 Corns and callosities Reuben Hurley [...] of sca lp, initial encounter Saul Hebert, [facility] Plan of Treatment Future Appointment(s):* 12/26/2020 9:15 am - Reuben Hurley D.O., [facility] at [facility] Functional Status Description No Information Available Mental Status Description No Information Available Referrals Refer to Reason for Referral Status Appt Date [facility] Podiatry POSSIBLE FOREIGN BODY IN SOLE OF FOOT. P HOLLI CRUZ AND RX. Created Colette Geiger M.D.--Podiatry [address] [place] [address] [phone]
--- OUTSIDE RECORDS SUMMARY | 2021-01-23 16:17 | CCD | Continuity of Care Document ---
Author Author Marlo HURLEY D.O. Organization Unknown Address [address] [place] [id number] Phone [phone] Problems Active Problems Provider Date Anxiety Alicia Lehman D., TRIM OPERATOR-C Onset: 12/02 Acne vulgaris Linda Bruce, TRIM OPERATOR-BC Onset: 05/26/2015 Drug abuse Reuben Hurley D.O., [...] CPT Code Status Date Vaccine Lot # [id number] Refused 02/12/2017 Influenza Virus Vaccine, Quadrivalent, Slit Virus, Im Use 3Y & Up Vital Signs Date Vital Result Comment 12/07/2020 11:15am BP Systolic 126 mmHg BP Diastolic 56 mmHg Body Temperature 97.5 F Heart Rate 74 /min Respiratory Rate 18 /min Height 69 inches 5'9" Weight 178.00 lb [place] Body Weight 160 lb BMI (Body Mass Index) 26.3 kg/m2 O2 % BldC Oximetry 98 % 11/30/2020 9:43am BP Systolic 112 mmHg BP Diastolic 72 mmHg Body Temperature 97.8 F Heart Rate 72 /min Respiratory Rate 16 /min Height 69 inches 5'9" Weight 173.00 lb [place] Body Weight 160 lb BMI (Body Mass Index) 25.5 kg/m2 O2 % BldC Oximetry 98 % Results Test Acquired Date Facility Test Result H/L Range Note CBC With Differential 06/28/2020 [facility] ([facility]) [phone] White Blood Count 10.7 10 High 4.0-10.0 [...] 36.0-66.0 Lymph % 19.2 % Low 24.0-44.0 [place] % 7.9 % Normal 2.0-8.0 Eos % 4.7 % High 0.0-3.0 Baso % 0.7 % Normal 0.0-1.0 Immature Granulocyte % 0.4 % Normal 0-3.0 Nucleated Red Blood Cell % 0.0 % Normal 0-0 Neutrophils # 7.2 10 Normal 1.5-8.5 Lymph # 2.1 10 Normal 1.5-5.0 [place] # 0.8 10 Normal 0.0-0.8 Eos # 0.5 10 Normal 0.0-0.5 Baso # 0.1 10 Normal 0.0-0.2 Drug Eval Toxicology ED Only 06/28/2020 [facility] (Interface) [phone] Amphetamines Level Urine NEGATIVE Normal Negativ e Barbiturates Urine NEGATIVE Normal Negative Benzodiazepines Urine NEGATIVE Normal Negative Cannabinoids Urine NEGATIVE Normal Negative Cocaine Metabolite Urine NEGATIVE Normal Negative Methadone Urine NEGATIVE Normal Negative Opiates Urine NEGATIVE Normal Negative Phencyclidine Urine NEGATIVE Normal Negative 1 Laboratory test finding 06/28/2020 [facility] (Interface) [phone] Ethyl Alcohol (Ethanol) < 0.003 % Normal 0.000-0. 010 2 Salicylate Level < 1.7 mg/dL Low 5.0-30.0 3 Acetaminophen Level < 2.0 UG/ML Low 10.0-30.0 4 Comprehensive Metabolic Profil 06/28/2020 [facility] (Interface) [phone] Glucose, Fasting 82 mg/dL Normal 70-100 Blood [...] Ratio 0.9 Normal Laboratory test finding 06/28/2020 [facility] (Interface) [phone] Hepatitis C Virus [place] Index > 11.0 [...] Little GFR Left ESRD GFR <15 on ACCOUNTING MANAGER CPA 6 This screening test for Hepa titis C Virus was above the 1.0 cutoff index value and will be sent to reference lab Laboratory [facility], [address] [place] [address]. Kari Martinez. [id number] for Hep C RNA ROSANGELA testing to [...] (including group O) & HIV-2 using the [employer] system. The estimated 95% confidence interval for sensitivity of this antigen/antibody combination assay for HIV-1&2 antibodies is 99.7-100% and HIV p24 antigen is 89.4-99.9%. The estimated 95% confidence interval for specificity of this antigen/antibody combination in low risk populations is 99.6-99.8%. 10 Positive: HCV RNA Detected Performed at: [address] [id number] [address] Repairer: Miriam Louis MD, Phone: [phone] Procedures Date Code Description Status 11/30/2020 11287 [place] Benign Hyperkeratoric Sin gle [place] Or Callus Completed 09/14/2020 18107 Office/Outpatient Established Mo d MDM 30-39 Min Completed 08/30/2020 76748 Office/Outpatient Established Lo w MDM 20-29 Min Completed 06/07/2020 05011 Office/Outpatient Established Mo d MDM 30-39 Min Completed Medical Devices Description No Information Available Encounters Type Date Location Provider Dx Diagnosis Office Visit 09/14/2020 2:45p [place] [facility] Tejal Walter, FAAFP B17.10 Acute hepatitis C without hepatic coma L70.0 Acne vulgaris Z20.2 Contact w and exposure to in fect w a sexl mode of transmiss Office Visit 08/30/2020 2:20p [place] [facility] Saul Hebert, RP A R53.83 Other fatigue Z20.2 Contact w and exposure to in fect w a sexl mode of transmiss A54.00 Gonococcal infection of lowe r genitourinary tract, unsp A74.9 Chlamydial infection, unspec ified B17.10 Acute hepatitis C without he patic coma S00.06xA Insect bite (nonvenomous) of scalp, initial encounter Office Visit 06/07/2020 1:15p [place] [facility] Yuniel Walter, FAAFP L70.0 Acne vulgaris [...] C without hepati c coma Saul Hebert, [facility] 08/30/2020 S00.06xA Insect bite (nonvenomous) of sca lp, initial encounter Saul Hebert, RPA 06/07/2020 L70.0 Acne vulgaris Reuben Hurley D.O., FAAFP 06/07/2020 B18.2 Chronic viral hepatitis C Ariella Hurley D.O., FAAFP Plan of Treatment Future Appointment(s):* 12/26/2020 9:15 am - Reuben Hurley D.O., LIZFP at [facility] Functional Status Description No Information Available Mental Status Description No Information Available Referrals Refer to Reason for Referral Status Appt Date [facility] Dermatology severe acne/ cystic /on back with scarr ing please eval Sent [address] [place] [address] [phone]
--- OUTSIDE RECORDS SUMMARY | 2021-01-23 16:18 | CCD ---
Author Author [facility] Organization [facility] Address Unknown Phone Unavailable Care Team Providers Care Greensman Name Role Phone Maring, Moise PA Unavailable Unavailable Maring, Moise PA Unavailable Unavailable Maring, Moise PA Unavailable Unavailable Maring, Moise PA Unavailable Unavailable Maring, Moise PA Unavailable Unavailable Maring, Moise PA Unavailable Unavailable Maring, Moise PA Unavailable Unavailable Maring, Moise PA Unavailable Unavailable Maring, Moise PA Unavailable Unavailable Maring, Moise PA Unavailable Unavailable Maring, Moise PA Unavailable Unavailable Maring, Moise PA Unavailable Unavailable Maring, Moise PA Unavailable Unavailable Maring, Moise PA Unavailable Unavailable Maring, Moise PA Unavailable Unavailable Maring, Moise PA Unavailable Unavailable Fish, B Familia RAMOS Unavailable Unavailable Fish, B Familia RAMOS Unavailable Unavailable Fish, B Familia RAMOS Unavailable Unavailable Fish, B Familia RAMOS Unavailable Unavailable Fish, B Familia RAMOS Unavailable Unavailable Fish, B Familia RAMOS Unavailable Unavailable Fish, B Familia RAMOS Unavailable Unavailable Fish, B Familia RAMOS Unavailable Unavailable Fish, B Familia RAMOS Unavailable Unavailable Fish, B Familia RAMOS Unavailable Unavailable Fish, B Familia RAMOS Unavailable Unavailable Fish, B Familia RAMOS Unavailable Unavailable Fish, B Familia RAMOS Unavailable Unavailable Fish, B Familia RAMOS Unavailable Unavailable Fish, B Familia RAMOS Unavailable Unavailable Fish, B Familia RAMOS Unavailable Unavailable Fish, B Familia RAMOS Unavailable Unavailable Fish, B Familia RAMOS Unavailable Unavailable Fish, B Familia RAMOS Unavailable Unavailable Fish, B Familia RAMOS Unavailable Unavailable Fish, B Familia RAMOS Unavailable Unavailable Fish, B Familia RAMOS Unavailable Unavailable Fish, B Familia RAMOS Unavailable Unavailable Fish, B Familia RAMOS Unavailable Unavailable Fish, B Familia RAMOS Unavailable Unavailable Fish, B Familia RAMOS Unavailable Unavailable Fish, B Familia RAMOS Unavailable Unavailable Fish, B Familia RAMOS Unavailable Unavailable Fish, B Familia RAMOS Unavailable Unavailable Fish, B Familia RAMOS Unavailable Unavailable Fish, B Familia RAMOS Unavailable Unavailable Fish, B Familia RAMOS Unavailable Unavailable Fish, B Familia RAMOS Unavailable Unavailable Fish, B Familia RAMOS Unavailable Unavailable Fish, B Familia RAMOS Unavailable Unavailable Fish, B Familia RAMOS Unavailable Unavailable Fish, B Familia RAMOS Unavailable Unavailable Fish, B Familia RAMOS Unavailable Unavailable Fish, B Familia RAMOS Unavailable Unavailable Fish, B Familia RAMOS Unavailable Unavailable Fish, B Familia RAMOS Unavailable Unavailable Fish, B Familia RAMOS Unavailable Unavailable Fish, B Familia RAMOS Unavailable Unavailable Fish, B Familia RAMOS Unavailable Unavailable Fish, B Familia RAMOS Unavailable Unavailable Fish, B Familia RAMOS Unavailable Unavailable Fish, B Familia RAMOS Unavailable Unavailable Fish, B Familia RAMOS Unavailable Unavailable Fish, B Familia RAMOS Unavailable Unavailable Fish, B Familia RAMOS Unavailable Unavailable Fish, B Familia RAMOS Unavailable Unavailable Fish, B Familia RAMOS Unavailable Unavailable Fish, B Familia RAMOS Unavailable Unavailable Fish, B Familia RAMOS Unavailable Unavailable Fish, B Familia RAMOS Unavailable Unavailable Fish, B Familia RAMOS Unavailable Unavailable Feola, T Ifeoma PA Unavailable Unavailable Feola, T Ifeoma PA Unavailable Unavailable Feola, T Ifeoma PA Unavailable Unavailable Feola, T Ifeoma PA Unavailable Unavailable Feola, T Ifeoma PA Unavailable Unavailable Feola, T Ifeoma PA Unavailable Unavailable Feola, T Ifeoma PA Unavailable Unavailable Feola, T Ifeoma PA Unavailable Unavailable Feola, T Ifeoma PA Unavailable Unavailable Feola, T Ifeoma PA Unavailable Unavailable Feola, T Ifeoma PA Unavailable Unavailable Feola, T Ifeoma PA Unavailable Unavailable Feola, T Ifeoma PA Unavailable Unavailable Feola, T Ifeoma PA Unavailable Unavailable Feola, T Ifeoma PA Unavailable Unavailable Feola, T Ifeoma PA Unavailable Unavailable Feola, T Ifeoma PA Unavailable Unavailable Feola, T Ifeoma PA Unavailable Unavailable Feola, T Ifoema PA Unavailable Unavailable Feola, T Ifeoma PA Unavailable Unavailable Feola, T Ifeoma PA Unavailable Unavailable Feola, T Ifeoma PA Unavailable Unavailable Feola, T Ifeoma PA Unavailable Unavailable Feola, T Ifeoma PA Unavailable Unavailable Feola, T Ifeoma PA Unavailable Unavailable Feola, T Ifeoma PA Unavailable Unavailable Feola, T Ifeoma PA Unavailable Unavailable Feola, T Ifeoma PA Unavailable Unavailable Feola, T Ifeoma PA Unavailable Unavailable Feola, T Ifeoma PA Unavailable Unavailable Feola, T Ifeoma PA Unavailable Unavailable Feola, T Ifeoma PA Unavailable Unavailable Feola, T Ifeoma PA Unavailable Unavailable Feola, T Ifeoma PA Unavailable Unavailable Feola, T Ifeoma PA Unavailable Unavailable Feola, T Ifeoma PA Unavailable Unavailable Feola, T Ifeoma PA Unavailable Unavailable Feola, T Ifeoma PA Unavailable Unavailable Feola, T Ifeoma PA Unavailable Unavailable Feola, T Ifeoma PA Unavailable Unavailable Feola, T Ifeoma PA Unavailable Unavailable PEDERSEN, G EDWARD RPA Unavailable Unavailable PEDERSEN, G EDWARD RPA Unavailable Unavailable PEDERSEN, G EDWARD RPA Unavailable Unavailable PEDERSEN, G EDWARD RPA Unavailable Unavailable PEDERSEN, G EDWARD RPA Unavailable Unavailable PEDERSEN, G EDWARD RPA Unavailable Unavailable PEDERSEN, G EDWARD RPA Unavailable Unavailable PEDERSEN, G EDWARD RPA Unavailable Unavailable PEDERSEN, G EDWARD RPA Unavailable Unavailable PEDERSEN, G EDWARD RPA Unavailable Unavailable PEDERSEN, G EDWARD RPA Unavailable Unavailable PEDERSEN, G EDWARD RPA Unavailable Unavailable PEDERSEN, G EDWARD RPA Unavailable Unavailable PEDERSEN, G EDWARD RPA Unavailable Unavailable PEDERSEN, G EDWARD RPA Unavailable Unavailable PEDERSEN, G EDWARD RPA Unavailable Unavailable PEDERSEN, G EDWARD RPA Unavailable Unavailable PEDERSEN, G EDWARD RPA Unavailable Unavailable PEDERSEN, G EDWARD RPA Unavailable Unavailable PEDERSEN, G EDWARD RPA Unavailable Unavailable PEDERSEN, G EDWARD RPA Unavailable Unavailable PEDERSEN, G EDWARD RPA Unavailable Unavailable PEDERSEN, G EDWARD RPA Unavailable Unavailable PEDERSEN, G EDWARD RPA Unavailable Unavailable PEDERSEN, G EDWARD RPA Unavailable Unavailable PEDERSEN, G EDWARD RPA Unavailable Unavailable PEDERSEN, G EDWARD RPA Unavailable Unavailable PEDERSEN, G EDWARD RPA Unavailable Unavailable PEDERSEN, G EDWARD RPA Unavailable Unavailable PEDERSEN, G EDWARD RPA Unavailable Unavailable PEDERSEN, G EDWARD RPA Unavailable Unavailable PEDERSEN, G EDWARD RPA Unavailable Unavailable PEDERSEN, G EDWARD RPA Unavailable Unavailable PEDERSEN, G EDWARD RPA Unavailable Unavailable PEDERSEN, G EDWARD RPA Unavailable Unavailable NEENA, B KIRTI RAMOS Unavailable Unavailable NEENA, Duglas COTTO MD Unavailable Unavailable NEENA, Duglas COTTO MD Unavailable Unavailable NEENA, Duglas COTTO MD Unavailable Unavailable NEENA, Duglas COTTO MD Unavailable Unavailable NEENA, Duglas COTTO MD Unavailable Unavailable NEENA, Duglas COTTO MD Unavailable Unavailable NEENA, Duglas COTTO MD Unavailable Unavailable NEENA, Duglas COTTO MD Unavailable Unavailable NEENA, Duglas COTTO MD Unavailable Unavailable NEENA, Duglas COTTO MD Unavailable Unavailable NEENA, Duglas COTTO MD Unavailable Unavailable NEENA, Duglas COTTO MD Unavailable Unavailable NEENA, Duglas COTTO MD Unavailable Unavailable NEENA, Duglas COTTO MD Unavailable Unavailable NEENA, Duglas COTTO MD Unavailable Unavailable NEENA, Duglas COTTO MD Unavailable Unavailable NEENA, Duglas COTTO MD Unavailable Unavailable NEENA, Duglas COTTO MD Unavailable Unavailable NEENA, Duglas COTTO MD Unavailable Unavailable NEENA, Duglas COTTO MD Unavailable Unavailable NEENA, Duglas COTTO MD Unavailable Unavailable NEENA, Duglas COTTO MD Unavailable Unavailable NEENA, Duglas COTTO MD Unavailable Unavailable NEENA, Duglas COTTO MD Unavailable Unavailable NEENA, Duglas COTTO MD Unavailable Unavailable NEENA, Duglas COTTO MD Unavailable Unavailable NEENA, Duglas COTTO MD Unavailable Unavailable NEENA, Duglas COTTO MD Unavailable Unavailable NEENA, Duglas COTTO MD Unavailable Unavailable NEENA, Duglas COTTO MD Unavailable Unavailable NEENA, Duglas COTTO MD Unavailable Unavailable NEENA, Duglas COTTO MD Unavailable Unavailable NEENA, Duglas COTTO MD Unavailable Unavailable NEENA, Duglas COTTO MD Unavailable Unavailable NEENA, Duglas COTTO MD Unavailable Unavailable NEENA, Duglas COTTO MD Unavailable Unavailable NEENA, Duglas COTTO MD Unavailable Unavailable NEENA, Duglas COTTO MD Unavailable Unavailable NEENA, Duglas COTTO MD Unavailable Unavailable NEENA, Duglas COTTO MD Unavailable Unavailable NEENA, Duglas COTTO MD Unavailable Unavailable NEENA, Duglas COTTO MD Unavailable Unavailable NEENA, Duglas COTTO MD Unavailable Unavailable NEENA, Duglas COTTO MD Unavailable Unavailable NEENA, Duglas COTTO MD Unavailable Unavailable NEENA, Duglas COTTO MD Unavailable Unavailable NEENA, Duglas COTTO MD Unavailable Unavailable NEENA, Duglas COTTO MD Unavailable Unavailable NEENA, B KIRTI RAMOS Unavailable Unavailable NEENA, Duglas COTTO MD Unavailable Unavailable NEENA, Duglas COTTO MD Unavailable Unavailable NEENA, Duglas COTTO MD Unavailable Unavailable NEENA, Duglas COTTO MD Unavailable Unavailable NEENA, Duglas COTTO MD Unavailable Unavailable NEENA, Duglas COTTO MD Unavailable Unavailable NEENA, Duglas COTTO MD Unavailable Unavailable NEENA, Duglas COTTO MD Unavailable Unavailable NEENA, Duglas COTTO MD Unavailable Unavailable NEENA, Duglas COTTO MD Unavailable Unavailable NEENA, Duglas COTTO MD Unavailable Unavailable NEENA, Duglas COTTO MD Unavailable Unavailable NEENA, Duglas COTTO MD Unavailable Unavailable NEENA, Duglas COTTO MD Unavailable Unavailable NEENA, Duglas COTTO MD Unavailable Unavailable NEENA, Duglas COTTO MD Unavailable Unavailable NEENA, Duglas COTTO MD Unavailable Unavailable NEENA, Duglas COTTO MD Unavailable Unavailable NEENA, Duglas COTTO MD Unavailable Unavailable NEENA, Duglas COTTO MD Unavailable Unavailable NEENA, Duglas COTTO MD Unavailable Unavailable NEENA, Duglas COTTO MD Unavailable Unavailable NEENA, Duglas COTTO MD Unavailable Unavailable NEENA, Duglas COTTO MD Unavailable Unavailable NEENA, Duglas COTTO MD Unavailable Unavailable NEENA, Duglas COTTO MD Unavailable Unavailable NEENA, Duglas COTTO MD Unavailable Unavailable NEENA, Duglas COTTO MD Unavailable Unavailable NEENA, Duglas COTTO MD Unavailable Unavailable NEENA, Duglas COTTO MD Unavailable Unavailable NEENA, Duglas COTTO MD Unavailable Unavailable NEENA, Duglas COTTO MD Unavailable Unavailable NEENA, Duglas COTTO MD Unavailable Unavailable NEENA, Duglas COTTO MD Unavailable Unavailable NEENA, Duglas COTTO MD Unavailable Unavailable NEENA, Duglas COTTO MD Unavailable Unavailable NEENA, Duglas COTTO MD Unavailable Unavailable NEENA, Duglas COTTO MD Unavailable Unavailable Anup, Blade Hughes PA Unavailable Unavailable Anup, Blade Hughes PA Unavailable Unavailable Anup, Blade Hughes PA Unavailable Unavailable Anup, Blade Hughes PA Unavailable Unavailable Anup, D Saul PA Unavailable Unavailable Anup, Blade Hughes PA Unavailable Unavailable Anup, D Saul PA Unavailable Unavailable Anup, D Saul PA Unavailable Unavailable Anup, D Saul PA Unavailable Unavailable Anup, D Saul PA Unavailable Unavailable Anup, D Saul PA Unavailable Unavailable Anup, D Saul PA Unavailable Unavailable Anup, D Saul PA Unavailable Unavailable Anup, D Saul PA Unavailable Unavailable Anup, D Saul PA Unavailable Unavailable Anpu, D Saul PA Unavailable Unavailable Anup, D Saul PA Unavailable Unavailable Anup, D Saul PA Unavailable Unavailable Anup, D Saul PA Unavailable Unavailable Anup, D Saul PA Unavailable Unavailable Anup, D Saul PA Unavailable Unavailable Anup, D Saul PA Unavailable Unavailable Anup, D Sual PA Unavailable Unavailable Anup, D Saul PA Unavailable Unavailable Anup, D Saul PA Unavailable Unavailable Anup, D Saul PA Unavailable Unavailable Anup, D Saul PA Unavailable Unavailable Anup, D Saul PA Unavailable Unavailable Anup, D Saul PA Unavailable Unavailable Anup, D Saul PA Unavailable Unavailable Anup, D Saul PA Unavailable Unavailable Anup, D Saul PA Unavailable Unavailable Anup, D Saul PA Unavailable Unavailable Anup, D Saul PA Unavailable Unavailable Anup, D Saul PA Unavailable Unavailable Anup, D Saul PA Unavailable Unavailable Anup, D Saul PA Unavailable Unavailable Anup, D Saul PA Unavailable Unavailable Anup, D Saul PA Unavailable Unavailable Anup, D Saul PA Unavailable Unavailable Anup, D Saul PA Unavailable Unavailable Anup, D Saul PA Unavailable Unavailable Anup, D Saul PA Unavailable Unavailable Anup, D Saul PA Unavailable Unavailable Anup, D Saul PA Unavailable Unavailable Anup, D Saul PA Unavailable Unavailable Anup, D Saul PA Unavailable Unavailable Anup, D Saul PA Unavailable Unavailable Anup, D Saul PA Unavailable Unavailable Anup, D Saul PA Unavailable Unavailable Anup, D Saul PA Unavailable Unavailable Anup, D Saul PA Unavailable Unavailable Anup, D Saul PA Unavailable Unavailable Anup, D Saul PA Unavailable Unavailable Anup, D Saul PA Unavailable Unavailable Anup, D Saul PA Unavailable Unavailable Anup, D Saul PA Unavailable Unavailable Anup, D Saul PA Unavailable Unavailable Anup, D Saul PA Unavailable Unavailable Anup, D Saul PA Unavailable Unavailable Anup, D Saul PA Unavailable Unavailable Anup, D Saul PA Unavailable Unavailable Anup, D Saul PA Unavailable Unavailable Anup, D Saul PA Unavailable Unavailable Anup, D Saul PA Unavailable Unavailable Anup, D Saul PA Unavailable Unavailable Anup, D Saul PA Unavailable Unavailable Anup, D Saul PA Unavailable Unavailable Fish, J Reuben Unavailable Unavailable Fish, J Reuben Unavailable Unavailable Fish, J Reuben Unavailable Unavailable Fish, J Reuben Unavailable Unavailable Fish, J Reuben Unavailable Unavailable Fish, J Reuben Unavailable Unavailable Fish, J Reuben Unavailable Unavailable Fish, J Reuben Unavailable Unavailable Fish, J Reuben Unavailable Unavailable Fish, J Reuben Unavailable Unavailable Fish, J Reuben Unavailable Unavailable Fish, J Reuben Unavailable Unavailable Fish, J Reuben Unavailable Unavailable Fish, J Reuben Unavailable Unavailable Fish, J Reuben Unavailable Unavailable Fish, J Reuben Unavailable Unavailable Fish, J Reuben Unavailable Unavailable Fish, J Reuben Unavailable Unavailable Fish, J Reuben Unavailable Unavailable Fish, J Reuben Unavailable Unavailable Fish, J Eruben Unavailable Unavailable Fish, J Reuben Unavailable Unavailable Fish, J Reuben Unavailable Unavailable Fish, J Reuben Unavailable Unavailable Fish, J Reuben Unavailable Unavailable Fish, J Reuben Unavailable Unavailable Fish, J Reuben Unavailable Unavailable Fish, J Reuben Unavailable Unavailable Fish, J Reuben Unavailable Unavailable Fish, J Reuben Unavailable Unavailable Fish, J Reuben Unavailable Unavailable Fish, J Reuben Unavailable Unavailable Fish, J Reuben Unavailable Unavailable Fish, J Reuben Unavailable Unavailable Fish, J Reuben Unavailable Unavailable Fish, J Reuben Unavailable Unavailable Fish, J Reuben Unavailable Unavailable Fish, J Reuben Unavailable Unavailable Fish, J Reuben Unavailable Unavailable Fish, J Reuben Unavailable Unavailable Fish, J Reuben Unavailable Unavailable Fish, J Reuben Unavailable Unavailable Fish, J Reuben Unavailable Unavailable Fish, J Reuben Unavailable Unavailable Fish, J Reuben Unavailable Unavailable Fish, J Reuben Unavailable Unavailable Fish, J Reuben Unavailable Unavailable Fish, J Reuben Unavailable Unavailable Fish, J Reuben Unavailable Unavailable Fish, J Reuben Unavailable Unavailable Fish, J Reuben Unavailable Unavailable Fish, J Reuben Unavailable Unavailable Fish, J Reuben Unavailable Unavailable Fish, J Reuben Unavailable Unavailable Fish, J Reuben Unavailable Unavailable Fish, J Reuben Unavailable Unavailable Fish, J Reuben Unavailable Unavailable Fish, J Reuben Unavailable Unavailable Fish, J Reuben Unavailable Unavailable Fish, J Reuben Unavailable Unavailable Fish, J Reuben Unavailable Unavailable Fish, J Reuben Unavailable Unavailable Fish, J Reuben Unavailable Unavailable Fish, J Reuben Unavailable Unavailable Fish, J Reuben Unavailable Unavailable Fish, J Reuben Unavailable Unavailable Fish, J Reuben Unavailable Unavailable Fish, J Reuben Unavailable Unavailable Fish, J Reuben Unavailable Unavailable Fish, J Reuben Unavailable Unavailable Fish, J Reuben Unavailable Unavailable Fish, J Reuben Unavailable Unavailable Fish, J Reuben Unavailable Unavailable Fish, J Reuben Unavailable Unavailable Fish, J Reuben Unavailable Unavailable Fish, J Reuben Unavailable Unavailable Fish, J Reuben Unavailable Unavailable Fish, J Reuben Unavailable Unavailable Fish, J Reuben Unavailable Unavailable Fish, J Reuben Unavailable Unavailable Fish, J Reuben Unavailable Unavailable Fish, J Reuben Unavailable Unavailable Fish, J Reuben Unavailable Unavailable Fish, J Reuben Unavailable Unavailable Alvino Cordero MD Unavailable Unavailable Alvino Cordero MD Unavailable Unavailable Alvino Cordero MD Unavailable Unavailable Alvino Cordero MD Unavailable Unavailable Alvino Cordero MD Unavailable Unavailable Alvino Cordero MD Unavailable Unavailable Alvino Cordero MD Unavailable Unavailable Alvino Cordero MD Unavailable Unavailable Alvino Cordero MD Unavailable Unavailable Alvino Cordero MD Unavailable Unavailable Alvino Cordero MD Unavailable Unavailable Alvino Cordero MD Unavailable Unavailable Alvino Cordero MD Unavailable Unavailable Alvino Cordero MD Unavailable Unavailable Alvino Cordero MD Unavailable Unavailable Alvino Cordero MD Unavailable Unavailable Alvino Cordero MD Unavailable Unavailable Alvino Cordero MD Unavailable Unavailable Alvino Cordero MD Unavailable Unavailable Alvino Cordero MD Unavailable Unavailable Alvino Cordero MD Unavailable Unavailable Alvino Cordero MD Unavailable Unavailable Alvino Cordero MD Unavailable Unavailable Alvino Cordero MD Unavailable Unavailable Alvino Cordero MD Unavailable Unavailable FORNI, R DEMETRI DPM Unavailable Unavailable FORNI, R DEMETRI DPM Unavailable Unavailable FORNI, R DEMETRI DPM Unavailable Unavailable FORNI, R DEMETRI DPM Unavailable Unavailable FORNI, R DEMETRI DPM Unavailable Unavailable FORNI, R DEMETRI DPM Unavailable Unavailable FORNI, R DEMETRI DPM Unavailable Unavailable FORNI, R DEMETRI DPM Unavailable Unavailable FORNI, R DEMETRI DPM Unavailable Unavailable FORNI, R DEMETRI DPM Unavailable Unavailable Fish, J Reuben Unavailable Unavailable Fish, J Reuben Unavailable Unavailable Fish, J Reuben Unavailable Unavailable Fish, J Reuben Unavailable Unavailable Fish, J Reuben Unavailable Unavailable Fish, J Reuben Unavailable Unavailable Fish, J Reuben Unavailable Unavailable Fish, J Reuben Unavailable Unavailable Fish, J Reuben Unavailable Unavailable Fish, J Reuben Unavailable Unavailable Fish, J Reuben Unavailable Unavailable Fish, J Reuben Unavailable Unavailable Fish, J Reuben Unavailable Unavailable Fish, J Reuben Unavailable Unavailable Fish, J Reuben Unavailable Unavailable Fish, J Reuben Unavailable Unavailable Fish, J Reuben Unavailable Unavailable Fish, J Reuben Unavailable Unavailable Fish, J Reuben Unavailable Unavailable Fish, J Reuben Unavailable Unavailable Fish, J Reuben Unavailable Unavailable Fish, J Reuben Unavailable Unavailable Fish, J Reuben Unavailable Unavailable Fish, J Reuben Unavailable Unavailable Fish, J Reuben Unavailable Unavailable Fish, J Reuben Unavailable Unavailable Fish, J Reuben Unavailable Unavailable Fish, J Reuben Unavailable Unavailable Fish, J Reuben Unavailable Unavailable Fish, J Reuben Unavailable Unavailable Fish, J Reuben Unavailable Unavailable Fish, J Reuben Unavailable Unavailable Fish, J Reuben Unavailable Unavailable Fish, J Reuben Unavailable Unavailable Fish, J Reuben Unavailable Unavailable Fish, J Reuben Unavailable Unavailable Fish, J Reuben Unavailable Unavailable Fish, J Reuben Unavailable Unavailable Fish, J Reuben Unavailable Unavailable Fish, J Reuben Unavailable Unavailable Fish, J Reuben Unavailable Unavailable Fish, J Reuben Unavailable Unavailable Fish, J Reuben Unavailable Unavailable Fish, J Reuben Unavailable Unavailable Fish, J Reuben Unavailable Unavailable Fish, J Reuben Unavailable Unavailable Fish, J Reuben Unavailable Unavailable Fish, J Reuben Unavailable Unavailable Fish, J Reuben Unavailable Unavailable Fish, J Reuben Unavailable Unavailable Fish, J Reuben Unavailable Unavailable Fish, J Reuben Unavailable Unavailable Fish, J Reuben Unavailable Unavailable Fish, J Reuben Unavailable Unavailable Fish, J Reuben Unavailable Unavailable Fish, J Reuben Unavailable Unavailable Fish, J Reuben Unavailable Unavailable Fish, J Reuben Unavailable Unavailable Fish, J Reuben Unavailable Unavailable Fish, J Reuben Unavailable Unavailable Fish, J Reuben Unavailable Unavailable Fish, J Reuben Unavailable Unavailable Fish, J Reuben Unavailable Unavailable Fish, J Reuben Unavailable Unavailable Fish, J Reuben Unavailable Unavailable Fish, J Reuben Unavailable Unavailable Fish, J Reuben Unavailable Unavailable Fish, J Reuben Unavailable Unavailable Fish, J Reuben Unavailable Unavailable Fish, J Reuben Unavailable Unavailable Fish, J Reuben Unavailable Unavailable Fish, J Reuben Unavailable Unavailable Fish, J Reuben Unavailable Unavailable Fish, J Reuben Unavailable Unavailable Fish, J Reuben Unavailable Unavailable Fish, J Reuben Unavailable Unavailable Fish, J Reuben Unavailable Unavailable Fish, J Reuben Unavailable Unavailable Fish, J Reuben Unavailable Unavailable Fish, J Reuben Unavailable Unavailable Fish, J Reuben Unavailable Unavailable Fish, J Reuben Unavailable Unavailable Fish, J Reuben Unavailable Unavailable Fish, J Reuben Unavailable Unavailable SHAWNA, L JABIER MD Unavailable Unavailable SHAWNA, L JABIER MD Unavailable Unavailable SHAWNA, L JABIER MD Unavailable Unavailable SHAWNA, L JABIER MD Unavailable Unavailable SHAWNA, L JABIER MD Unavailable Unavailable SHAWNA, L JABIER MD Unavailable Unavailable SHAWNA, L JABIER MD Unavailable Unavailable SHAWNA, L JABIER MD Unavailable Unavailable SHAWNA, L JABIER MD Unavailable Unavailable SHAWNA, L JABIER MD Unavailable Unavailable SHAWNA, L JABIER MD Unavailable Unavailable SHAWNA, L JABIER MD Unavailable Unavailable SHAWNA, L JABIER MD Unavailable Unavailable SHAWNA, L JABIER MD Unavailable Unavailable SHAWNA, L JABIER MD Unavailable Unavailable SHAWNA, L JABIER MD Unavailable Unavailable SHAWNA, L JABIER MD Unavailable Unavailable SHAWNA, L JABIER MD Unavailable Unavailable SHAWNA, L JABIER MD Unavailable Unavailable SHAWNA, L JABIER MD Unavailable Unavailable NON, PHYSICIAN STAFF Unavailable Unavailable Re-disclosure Warning The records that you are about to access may contain information from federally-assisted alcohol or drug abuse programs. If such information is present, then the following federally mandated warning applies: This information has been disclosed to you from records protected by federal confidentiality rules (42 CFR part 2). The federal rules prohibit you from making any further disclosure of this information unless further disclosure is expressly permitted by the written consent of the person to whom it pertains or as otherwise permitted by 42 CFR part 2. A general authorization for the release of medical or other information is NOT sufficient for this purpose. The Federal rules restrict any use of the information to criminally investigate or prosecute any alcohol or drug abuse patient.The records that you are about to access may contain highly sensitive health information, the redisclosure of which is protected by Article 27-F of the [facility] Public Health law. If you continue you may have access to information: Regarding HIV / AIDS; Provided by facilities licensed or operated by the [facility] Office of Mental Health; or Provided by the [facility] Office for People With Developmental Disabilities. If such information is present, then the following [facility] mandated warning applies: This information has been disclosed to you from confidential records which are protected by state law. State law prohibits you from making any further disclosure of this information without the specific written consent of the person to whom it pertains, or as otherwise permitted by law. Any unauthorized further disclosure in violation of state law may result in a fine or skilled nursing sentence or both. A general authorization for the release of medical or other information is NOT sufficient authorization for further disc losure. Allergies and Adverse Reactions Type Description Substance Reaction Status Data Source(s ) Animal Allergy BEE STING BEE STING [facility] Family History Family Member Name Family Member Gender Family Member Status Date o f Status Description Data Source(s) Unknown Unknown Problem MEDENT ([facility]) Unknown Male Problem MEDENT ([facility]) Unknown Male Problem MEDENT ([facility] Encounters Encounter Providers Location Date Indications Data Source(s ) Outpatient Attender: Moise MCKEON 01/24/20 12:27:38 PM EDT - 01/23/2021 01:41:32 PM EDT [facility] ([facility] ) Outpatient Attender: DEMETRI FLORES [facility] STAFF NON 01/16/2021 10:32:00 AM EDT - 01/16/2021 10:32:00 AM EDT [facility] [place] [address] [address] 01/16/2021 12:00:00 AM EDT eCW1 ([facility]) [place] [address] [address] 01/12/2021 12:00:00 AM EDT eCW1 ([facility]) Outpatient Attender: DEMETRI FLORES DPMConsultant: STAFF NON 01/02/2021 08:51:00 AM EDT - 01/02/2021 08:51:00 AM EDT [facility] [place] [address] [address] 01/01/2021 12:00:00 AM EDT eCW1 ([facility]) Outpatient Attender: DEMETRI FLORES DPMConsultant: STAFF NON 12/18/2020 10:26:00 AM EDT - 12/18/2020 10:26:00 AM EDT [facility] Outpatient Attender: DEMETRI FLORES DPMConsultant: STAFF NON 12/13/2020 09:36:00 AM EDT - 12/13/2020 09:36:00 AM EDT [facility] Discharge cancelled. Disregard status an d discharged date. Outpatient Attender: Reuben Coughlin [place] [facility] 12/13/2020 09:00:0 0 AM EDT MEDENT ([facility] 11:00:0 0 AM EDT MEDENT ([facility] Emergency Attender: JABIER MATOS MDConsultant: STAFF NON 10/19/2020 10:29:00 PM EDT - 10/20/2020 02:41:00 AM EDT [facility] Patient discharged. Outpatient Attender: MARTIN PEDERSEN RPA 10/13 05:29:24 PM EDT - 10/13/2020 07:43:19 PM EDT [facility] ([facility] ) Outpatient Attender: KIRTI HERNANDEZeferrer: Familia Coughlin MD [id number] 10/05/2020 12:00:00 AM EDT - 10/17/2020 10:34:01 AM T [facility] Outpatient Referrer: KIRTI CHAUDHARY MD 10/05/2020 12:00: 00 AM EDT Unspecified injury of right wrist, hand and finger(s), initial encounter [facility] Unspecified injury of right wrist, hand and finger(s), initial encounter Outpatient Attender: Reuben Coughlin [place] [facility] 09/14/2020 02:45:0 0 PM EDT MEDENT ([facility] Outpatient Attender: Saul MCKEON [place] [facility] 02:20:00 PM EDT [facility] ([facility] Outpatient Attender: Ifeoma MCKEON 021 07:02:07 PM EDT - 08/27/2020 07:25:31 PM EDT [facility] ([facility] ) Outpatient Attender: MARTIN PEDERSEN RPA 08/05 02:43:33 PM EDT - 08/05/2020 04:47:30 PM EDT [facility] ([facility] ) Outpatient Attender: Gris Cordero MD 0 06/27/2020 07:12:21 PM EDT - 06/27/2020 07:33:08 PM EDT [facility] ([facility]) Outpatient Attender: Reuben Coughlin [place] [facility] 06/07/2020 12:15:0 0 PM EST MEDENT ([facility] Outpatient Attender: KIRTI CHAUDHARY MDReferrer: Familia Coughlin MD 03/16/2020 12:00:00 AM [facility] Outpatient Attender: Familia Coughlin MD Physical Therapy 01/18/2020 1 0:45:00 AM EDT MEDENT ([facility] ) Outpatient Attender: Reuben CoughlinConsultant: STAFF NON 10/04/2019 04:27:00 PM EDT - 12/16/2019 10:35:00 AM [facility] Patient discharged. Immunizations Vaccine Date Status Description Data Source(s) New in 2012. IIV4 12/13/2020 09:17:00 AM EDT completed MEDENT ([facility] Medications Medication Brand Name Start Date Product Form Dose Route Admi nistrative Instructions Pharmacy Instructions Status Indications Reaction Description Data Source(s) 800-160 mg 10/14/2020 12:00:00 AM EDT tablet 20 TAKE ONE TABLET BY MOUTH TWICE A DAY FOR 10 DAYS TAKE ONE TABLET BY MOUTH TWICE A DAY FOR 10 DAYS SOLD: 10/15/2020 [facility] 2.5 % 08/30/2020 12:00:00 AM EDT ointment 28 APPLY TO AFFECTED AREA(S) TWO TIMES A DAY APPLY TO AFFECTED AREA(S) TWO TIMES A DAY SOLD: 08/30/2020 [facility] doxycycline hyclate 100 MG Oral Capsule DOXYCYCLINE HYCLATE 08/28/2020 12:00:00 AM EDT capsule 14 TAKE ONE CAPSULE BY MOUTH TW ICE A DAY FOR 7 DAYS TAKE ONE CAPSULE BY MOUTH TWICE A DAY FOR 7 DAYS SOLD: 08/30/2020 [facility] Minocycline 50 MG Oral Capsule Minocycline HCL 06/07/2020 12:00:00 AM EST ORAL completed MEDENT ([facility] 0.1 % 04/20/2020 12:00:00 AM EST cream 30 APPLY TOPICALLY TO AFFECTED AREA(S) TWO TIMES A DAY APPLY TOPICALLY TO AFFECTED AREA(S) TWO TIMES A DAY SOLD: 04/28/2020 [facility] 30 mg 02/13/2020 12:00:00 AM EST tablet 40 TAKE ONE TABLET BY MOUTH FOUR TIMES A DAY NEEDED TAKE ONE TABLET BY MOUTH FOUR TIMES A DAY NEEDED SO LD: 02/13/2020 [facility] doxycycline hyclate 100 MG Oral Capsule DOXYCYCLINE HYCLATE 02/13/2020 12:00:00 AM EST capsule 20 TAKE ONE CAPSULE BY MOUTH TW ICE A DAY FOR 10 DAYS TAKE ONE CAPSULE BY MOUTH TWICE A DAY FOR 10 DAYS SOLD: 02/13/2020 [facility] 4 % 02/13/2020 12:00:00 AM EST liquid 118 DIRECTED TO CLEANSE AFFECTED AREA WHEN BATHING DIRECTED TO CLEANSE AFFECTED AREA WHEN BATHING SOLD : 02/13/2020 [facility] Azelastine hydrochloride 0.206 MG/ACTUAT Metered Dose Nasal [place] 0.15 % (205.5 mcg) AZELASTINE HCL 01/29/2020 12:00:00 AM EDT spray,non-aerosol 30 SPRAY ONE TO TWO SPRAYS IN EACH NOSTRIL TWICE A DAY FOR 10 DAYS SPRAY ONE TO TWO SPRAYS IN EACH NOSTRIL TWICE A DAY FOR 10 DAYS SOLD: 01/29/2020 [facility] 875-125 mg 01/29/2020 12:00:00 AM EDT tablet 20 TAKE ONE TABLET BY MOUTH TWO TIMES A DAY FOR 10 DAYS TAKE ONE TABLET BY MOUTH TWO TIMES A DAY FOR 10 DAYS SOLD: 01/29/2020 [facility] 800 mg 01/29/2020 12:00:00 AM EDT tablet 30 TAKE ONE TABLET BY MOUT THREE TIMES A DAY WITH FOOD FOR 10 DAYS DO NOT TAKE WITH KETOROLAC TAKE ONE TABLET BY MOUT THREE TIMES A DAY WITH FOOD FOR 10 DAYS DO NOT TAKE WITH KETOROLAC SOLD: 01/29/2020 [facility] 50 mcg/actuation 01/29/2020 12:00:00 AM EDT spray,suspension 16 SPRAY TWO SPRAYS IN EACH NOSTRIL EVERY DAY SPRAY TWO SPRAYS IN EACH NOSTRIL EVERY DAY SOLD: 01/29/2020 [facility] Insurance Providers Payer name Policy type / Coverage type Policy ID Covered alliance party ID Covered alliance party's relationship to snow Policy Snow Plan Information [employer] [id number] Family Dependent [id number] [employer] [id number] Family Dependent [id number] [employer] [id number] Family Dependent [id number] [employer] [id number] Family Dependent [id number] [employer] [id number] Family Dependent [id number] BS [place] [facility] Part B [id number] Self Z [id number] [place]/307 [id number] FA2 [id number] [place] 302/307 [id number] FA2 [id number] [place] 302/307 [id number] FA2 [id number] BS [place] Commercial [id number] Family Dependent V [id number] BS [place] Commercial [id number] Family Dependent V [id number] BS [place] Commercial [id number] Family Dependent V [id number] BS [place] Commercial [id number] Family Dependent V [id number] EXCELLUS H [id number] Child [id number] WORKERS COMPENSATION GENERIC W [id number] Empl [id number] WORKERS COMPENSATION GENERIC W [id number] Empl [id number] [place] [id number] Self [id number] [employer] [id number] Self [id number] Needs Workers Comp Information [facility] [id number] Self [id number] Needs WorkComp HI WorkComp Health Claim [id number] Self [id number] [place] [id number] B [id number] [place] [id number] 18 [id number] MEDICAID -PHYSICIAN [id number] MEDICAID [facility] [id number] MARIO [id number] SP [id number] PRIVATE PAY PAT Muñiz 18 PAT Muñiz MARIO CARE [place] O [id number] S [id number] MARIO [id number] SP [id number] SELF PAY ONLY [id number] SP [id number] BLUE CROSS BLUE SHIELD -O/P [id number] Self Pay P UNAVAILABLE S UNAVAILA BLE BCBS Commercial VYA [id number] VYA [id number] [employer] BCBS B [id number] D [id number] [employer] BCBS B [id number] D [id number] BCBS Commercial VYA [id number] Self VYA [id number] BCBS Commercial VYA [id number] Self VYA [id number] BCBS [facility] 304/804 [id number] FA2 [id number] [facility] 280/780 [id number] FA2 [id number] [employer]BS [place] 450/950 [id number] EXCE[employer] BCBS P [id number] C [id number] Problems, Conditions, and Diagnoses Code Display Name Description Problem Type Effective Dates Data Source(s) B070 Plantar wart Plantar wart Diagnosis 01/02/2021 08:51:00 A M [facility] Y[address] or not applicable Unspecified place or not applicable Diagnosis 10/19/2020 10:29:00 PM [facility] [id number] Exposure to other specified factors, ini tial encounter Exposure to other specified factors, initial encounter Diagnosis 10/19/2020 10:29:00 PM [facility] Z23 Encounter for immunization Encounter for immunization Diagnosis 10/19/2020 10:29:00 PM [facility] [id number] Nicotine dependence, cigarettes, uncompl icated Nicotine dependence, cigarettes, uncomplicated Diagnosis 10/19/2020 10:29:00 PM [facility] [id number] Abrasion of penis, initial encounter Abr asion of penis, initial encounter Diagnosis 10/19/2020 10:29:00 PM EDT [facility] L989 Disorder of the skin and subcutaneous ti ssue, unspecified Disorder of the skin and subcutaneous tissue, unspecified Diagnosis 10/19/2020 10:29:0 0 PM EDT [facility] S69.91XA Unspecified injury of right wrist, hand and finger(s), initial encounter Unspecified injury of right wrist, hand and finger(s), initial encounter Diagnosis 10/05/2020 02:59:45 PM EDT [facility] R99 Ill-defined and unknown cause of mortali ty Ill-defined and unknown cause of mortality Diagnosis 12/16/2019 10:35:00 AM EDT [facility] [id number] Vaccine refused by patient Vaccine refused by patient Problem 11/30/2020 12:00:00 AM EDT MEDENT ([facility] ) Note: COVID and FLU -may think about g etting it Surgeries/Procedures Procedure Description Date Indications Data Source(s) Destruction Benign Lesions Other Than Skin Tags Or Cutan Vas cular 01/16/2021 12:00:00 AM EDT MEDENT ([facility]) Destruction Benign Lesions Other Than Skin Tags Or Cutan Vas cular 01/02/2021 12:00:00 AM EDT MEDENT ([facility]) Destruction Benign Lesions Other Than Skin Tags Or Cutan Vas cular 12/18/2020 12:00:00 AM EDT MEDENT ([facility]) OFFICE OUTPATIENT NEW 20 MINUTES 12/18/2020 12:00:00 A M EDT MEDENT ([facility]) OFFICE OUTPATIENT VISIT 15 MINUTES 12/13/2020 12:00:00 AM EDT MEDENT ([facility] Paring Benign Hyperkeratoric Single Rollins Or Callus 12/07/2020 12:00:00 AM EDT MEDENT ([facility] ) OFFICE OUTPATIENT VISIT 15 MINUTES 12/07/2020 12:00:00 AM EDT MEDENT ([facility] Paring Benign Hyperkeratoric Single Rollins Or Callus 11/30/2020 12:00:00 AM EDT MEDENT ([facility] ) OFFICE OUTPATIENT VISIT 25 MINUTES 09/14/2020 12:00:00 AM EDT MEDENT ([facility] OFFICE OUTPATIENT VISIT 15 MINUTES 08/30/2020 12:00:00 AM EDT MED[facility] ([facility] OFFICE OUTPATIENT VISIT 25 MINUTES 06/07/2020 12:00:00 AM EST MED[facility] ([facility] RADEX HAND MINIMUM 3 VIEWS 12/14/2019 12:00:00 AM EDT MEDENT ([facility]) RADEX HAND MINIMUM 3 VIEWS 11/26/2019 12:00:00 AM EDT MEDENT ([facility]) Results ID Date Data Source HEPATITIS C QUANT BY PCR 01/01/2021 12:00:00 AM EDT eCW1 ([facility]) Name Value Range Interpretation Code Description Data Soumya rce(s) Supporting Document(s) 5.155 . Hepatitis C log10 eCW1 ([facility]) 170321 . HEPATITIS C QUANTITATION eCW1 ([facility]) ID Date Data Source HEPATITIS C FIBROSURE [id number] 01/01/2021 12:00:00 AM EDT eC W1 ([facility]) Name Value Range Interpretation Code Description Data Soumya rce(s) Supporting Document(s) . FIBROSIS STAGE eCW1 ([facility]) 0.04 0.00-0.21 FIBROSIS SCORE eCW1 ([facility]) 0.12 0.00-0.17 NECROINFLAM SCORE eCW1 ([facility]) A0-No activity . NECROINFLAMM GRADE eCW1 ( [facility]) 154 101-178 APOLIPOPROTEIN A-1 eCW1 ([facility]) 0.3 0.0-1.2 TOTAL BILIRUBIN eCW1 ([facility]) 144 110-276 ALPHA 2-MACROGLOBULIN eCW1 ([facility]) 189 17-317 HAPTOGLOBIN eCW1 ([facility]) 33 0-55 ALT eCW1 ([facility]) 33 0-65 GGT eCW1 ([facility]) . INTERPRETATION eCW1 ([facility]) . LIMITATIONS eCW1 ([facility]) . NECROINFLAM SCORING eCW1 ([facility]) . COMMENT : eCW1 ([facility]) . FIBROSIS SCORING eCW1 ([facility]) ID Date Data Source [id number] 10/19/2020 10:29:00 PM EDT [facility] 1 OrderSheet [facility] Emergency Department [address] [place] [address] Phone #: [phone] ext- [phone] 10/19/2020 22:29 Patient: MAXIME CHRISTIAN Sex: M : 1995 Age: 25yWEIGHT:81.6 kg (S) HEIGHT:71 inches (S) BMI:25.1ALLERGIES: No Known Drug AllergyCHIEF COMPLAINT: skin lesionDIAGNOSIS: AbrasionLAB ORDERSOrder Description Priority Entered Acknowledged InitialedChlamydia/GC STAT 23:07 10/19/2020 23:13 Shawna Ashley Norma MD; Chester SmallHIV Panel STAT 01:37 10/20/2020 Cancelled: Patient Refusal 02:12 Shawna Maloney Norma MD; Haylie RYasmineNYasmineDIAGNOSTIC STUDY ORDERSOrder Description Priority Entered Acknowledged InitialedMEDICATION/IV/DRIP/FLUID ORDERSOrder Description Priority Entered Acknowledged InitialedTdap IM 0.5 mL 01:37 10/20/2020 01:38 Shawna Maloney Norma MD; Haylie SmallGENERAL ORDERSOrder Description Priority Entered Acknowledged Initialed[Electronically signed by Jabier Matos MD (01:44 10/20/2020)][Electronically signed by Haylie Maloney R.N. (02:41 10/20/2020)][Electronically locked by Haylie Maloney R.N. (02:41 10/20/2020)] Name Value Range Interpretation Code Description Data Soumya rce(s) Supporting Document(s) ID Date Data Source [id number] 10/19/2020 10:29:00 PM EDT [facility] 1 Medication Reconciliation Report [facility] Emergency Department [address] [place] [address] Phone #: ext- [phone] 10/19/2020 22:29 Patient: MAXIME CHRISTIAN Sex: M : 1995 Age: 25yWeight: 81.6 kgHeight/Length: 71 in.BMI: 25.1ALLERGIES: No Known Drug AllergyThe patient's Home Medications are listed below:CONTINUE TAKING THE FOLLOWING MEDICATIONS: Ciprofloxacin-Ciproflox HCl ER Oral, started 1 week ago for his foot.The source(s) of the original Home Medication information:Not obtained.The following Medications were given to the patient in the Emergency Department:TDAP [IM] IM 0.5 mL, administered: 01:38 10/20/2020The following Medications were prescribed to the patient:None. Name Value Range Interpretation Code Description Data Soumya rce(s) Supporting Document(s) ID Date Data Source [id number] 10/19/2020 10:29:00 PM EDT [facility] 1 Medication Administration Record [facility] Emergency Department [address] [place] [address] Phone #: ext- [phone] 10/19/2020 22:29 Patient: MAXIME CHRISTIAN Sex: M : 1995 Age: 25yWeight: 81.6 kgHeight/Length: 71 inBMI: 25.1ALLERGIES: No Known Drug Allergy Date/Time Medication Administered Medication OrderedGiven TDAP [IM] Tdap IM 0.5 mL01:38 10/20/2020 Dose: 0.5 mL Haylie Mccurdy R.N. Name Value Range Interpretation Code Description Data Soumya rce(s) Supporting Document(s) ID Date Data Source [id number] 10/19/2020 10:29:00 PM EDT [facility] 1 General Instructions [facility] Emergency Department [address] [place] [address] Phone #: ext- [phone] 10/19/2020 22:29 Patient: MAXIME CHRISTIAN Sex: M : 1995 Age: 25yAbrasion to the penis.INSTRUCTIONS(return if worse or any new symptoms. finish all antibiotics as previously instructed. follow up with yourdoctor regarding the sensation of a foreign body to your left heel. you will be called regarding the hiv testif your test is positive.).Warnings: Further evaluation is necessary.GENERAL WARNINGS: Return or contact your physician immediately if your condition worsens orchanges unexpectedly, if not improving as expected, or if other problems arise.Your Current Medications: Your current home medications have been reviewed.CONTINUE TAKING THE FOLLOWING MEDICATIONS:Ciprofloxacin- Ciproflox HCl ER Oral : started 1 week ago for his foot.Follow-up:Follow up with your doctor Friday even if well. Call for an appointment. Reason for referral: evaluation.Summary of care provided to patient via paper.Understanding of the discharge instructions verbalized by patient. ADDITIONAL INFORMATIONAbrasionsAbrasions are skin scrapes. Their treatment depends on how large and deep the abrasion is.Home careYou may be prescribed an antibiotic cream or ointment to apply to the wound. This helps preventinfection. Follow instructions when using this medicine.General care To care for the abrasion, do the following each day for as long as directed by your healthcare provider: 2 General Instructions [facility] Emergency Department [address] [place] [address] Phone #: ext- [phone] 10/19/2020 22:29 Patient: MAXIME CHRISTIAN Sex: M : 1995 Age: 25y o If you were given a bandage, change it once a day. If your bandage sticks to the wound, soak it in warm water until it loosens. o Wash the area with soap and warm water. You may do this in a sink or under a tub faucet or shower. Rinse off the soap. Then pat the area dry with a clean towel. o If antibiotic ointment or cream was prescribed, reapply it to the wound as directed. Cover the wound with a fresh nonstick bandage. If the bandage becomes wet or dirty, change it as soon as possible. o Some antibiotic ointments or cream can cause an allergic reaction or dermatitis. This may cause redness, itching and or hives. If this occurs, stop using the ointment right away and wash off any remaining ointment. You may need to take some allergy medicine to relieve symptoms. You may use acetaminophen or ibuprofen to control pain unless another pain medicine was prescribed. Talk with your healthcare provider before using these medicines if you have chronic liver or kidney disease or ever had a stomach ulcer or GI (gastrointestinal) bleeding. Don't use ibuprofen in children younger than 6 months old. Most skin wounds heal within 10 days. But an infection may occur even with treatment. So it's important to watch the wound for signs of infection as listed below.Follow-up careFollow up with your healthcare provider, or as advised.When to get medical adviceCall your healthcare provider right away if any of these occur: Fever of 100.4F (38C) or higher, or as directed by your healthcare provider Increasing pain, redness, swelling, or drainage from the wound Bleeding from the wound that does not stop after a few minutes of steady, firm pressure Decreased ability to move any body part near the wound [employer] [address] [place] [address], [place] [address]. All rights reserved. This information is not intended as asubstitute for professional med [facility] care. Always follow your healthcare professional's instructions. You have been given the following additional information: Abrasions 3 General Instructions [facility] Emergency Department [address] [place] [address] Phone #: ext- [phone] 10/19/2020 22:29 Patient: MAXIME CHRISTIAN Sex: M : 1995 Age: 25y(Electronically signed by Jabier Matos MD 10/20/2020 01:44) Name Value Range Interpretation Code Description Data Soumya rce(s) Supporting Document(s) ID Date Data Source [id number] 10/19/2020 10:29:00 PM EDT [facility] 1 Clinical Report - Nurses [facility] Emergency Department [address] [place] [address] Phone #: ext- [phone] 10/19/2020 22:29 Patient: MAXIME CHRISTIAN Sex: M : 1995 Age: 25yTRIAGEArrived by private vehicle. Historian: patient.Acuity: LEVEL 4.Chief Complaint: STD EXPOSURE and DYSURIA (FB in L heel).Alert. No acute distress.Onset. (1 weeks). ( Pt reports stepping on a piece of [facility] 1 week ago [facility] [place] [facility] also [facility] him [facility]. He also reports having a scabon the tip of his penis and pain with urination. He has had unprotected sex in August with someone who mayhave HIV. Tonight, he also began having cold sweats and muscle aches.).Treatment LAP CUTTER:Seen within the last 30 days in a clinic; seen for similar symptoms.SEPSIS SCREEN: SIRS SCREEN NEGATIVE. SEPSIS SCREEN NEGATIVE. No s uspected or confirmedsigns of infection present.MASSIMO COMA SCORE: 15- eyes open- spontaneous (4); best verbal response- oriented (5); bestmotor response- obeys commands (6). --22:54 10/19/20 Haylie Maloney R.N.22:44 10/19/20. BP: 111/68. MAP: 82. HR: 86. RR: 18. O2 saturation: 100%. Temp: 99.8 F. Pain levelnow: 01/14. --22:54 10/19/20 Haylie Maloney R.N.Weight: 81.6 kg stated. Height/Length: 71 inches Per Patient. BMI: 25.1. --22:50 10/19/20 Haylie Maloney R.N.MedicationsCiprofloxacin-Ciproflox HCl ER Oral (started 1 week ago for his foot.). --22:50 10/19/20 Haylie Maloney R.N.AllergiesNo Known Drug Allergy. --22:50 10/19/20 Haylie Maloney R.N.PROBLEMS:Chlamydia. --22:51 10/19/20 Haylie Maloney R.N.ADDITIONAL SURGERIES:Circumcision. --22:51 10/19/20 Haylie Maloney R.N. 2 Clinical Report - Nurses [facility] Emergency Department [address] [place] [address] Phone #: ext- [phone] 10/19/2020 22:29 Patient: MAXIME CHRISTIAN Sex: M : 1995 Age: 25y History PAST MEDICAL HX: Immunizations: status is unknown. SOCIAL HX: Light tobacco smoker (cigarette)- less than 1/2 a pack per day. Occasional alcohol use. No drug use. He was offered HIV testing, accepted and oral consent was obtained. He was offered hepatitis C testing, accepted and oral consent was obtained. He has not traveled outside the [place] Infectious disease exposure: The patient was not exposed to C-diff, MRSA, VRE, CRE or Coronavirus. SELF HARM ASSESSMENT: Self harm assessment was performed. The patient answered "no" to the question(s) "Have you recently felt down, depressed, or hopeless?", "Do you have thoughts of harming or killing yourself?", "Do you have a plan for harming or killing yourself?", "Have you recently had thoughts about harming or killing others?", "Do you have any dangerous items in your possession?", "Have you noticed less interest or pleasure in doing things?", "Are you here because you tried to hurt yourself?" and "Have you ever tried to hurt yourself before today?". ABUSE ASSESSMENT: No report of abuse. NUTRITIONAL RISK ASSESSMENT: The nutritional risk assessment revealed no deficiencies. FUNCTIONAL ASSESSMENT: Functional assessment: no impairments noted. LEARNING NEEDS ASSESSMENT: The learning needs assessment revealed no barriers. FALL RISK ASSESSMENT: Fall risk assessment completed. No risk factors identified. SKIN INTEGRITY ASSESSMENT: Skin integrity risk assessment completed. No skin integrity risk identified. --22:54 10/19/20 Haylie Maloney RYasmineN. Interventions Identification band on patient. To treatment room. No allergy band on patient. --22:54 10/19/20 Haylie Maloney R.N.PHYSICAL [id number] 10/19/20. Ambulatory to room.GENERAL / NEURO / PSYCH: Alert. Oriented X 4. Appears in no acute distress.HEENT: No facial asymmetry noted. Mucous membranes are pink.RESPIRATORY: Respirations not labored. Chest nontender. Breath sounds within normal limits.CVS: Capillary refill less than 2 seconds. Pulses within normal limits.GI / : Abdomen soft and nontender and normal bowel sounds.SKIN: Skin intact. Skin is warm and dry. Normal skin turgor. --22:57 10/19/20 Chester Ashley R.N. ( wound from a procedure he had on bottom of left foot. believes there is a foreign body there.). --23:03 10/19/20 Chester Ashley R.N.NURSING PROGRESS NOTES 3 Clinical Report - Nurses [facility] Emergency Department [address] [place] [address] Phone #: ext- [phone] 10/19/2020 22:29 Patient: MAXIME CHRISTIAN Sex: M : 1995 Age: 25y 22:57 10/19/20. Reassurance given. Two patient identifiers checked. Call light placed in reach. Side rails up x 2. Bed placed in lowest position. Brakes of bed on. Patient ready for evaluation- ED physician notified. --22:57 10/19/20 Chester Ashley R.N. 01:38 10/20/2020 TDAP IM 0.5 mL given(Lot#: [id number], expiration date: 04/19/2022, Hand Weaver: BIlprospekt). Given in the right deltoid. Allergies verified and confirmed 5 rights. Information reviewed with patient including reason for taking this medication. Verbalizes understanding. --01:38 10/20/20 Haylie Maloney R.N.DISPOSITION / DISCHARGE Condition at departure: improved and stable. No learning barriers present. Discharge instructions provided and reviewed with the patient. Patient verbalized understanding. Written instruction s provided in Irish. The patient was discharged by the physician. He was discharged home. He left ambulatory and via private vehicle. Patient driving. --02:40 10/20/20 Haylie Maloney R.N. 02:39 10/20/20. BP: deferred. HR: deferred. RR: deferred. O2 saturation: deferred. Temp: deferred. Pain level now: uncertain. Additional comments: Pt wanted to go home. --02:40 10/20/20 Haylie Maloney R.N.Locked/Released at 10/20/2020 02:41 by Haylie Maloney R.N. Name Value Range Interpretation Code Description Data Soumya rce(s) Supporting Document(s) ID Date Data Source [id number] 0001 10/19/2020 10:29:00 PM EDT [facility] 1 Clinical Report - Physicians/Mid Levels [facility] Emergency Department [address] [place] [address] Phone #: ext- [phone] 10/19/2020 22:29 Patient: MAXIME CHRISTIAN Sex: M : 1995 Age: 25y Arrived- By private vehicle. Historian- patient.HISTORY OF PRESENT ILLNESS Chief Complaint: SKIN LESION. This started just prior to arrival and is still present. At its maximum, severity described as mild. When seen in the E.D., severity described as mild. Modifying factors. Not worsened by anything. Not relieved by anything. No loss of appetite, weight loss, headache, fatigue or muscle aches. No weakness. Denies sleep problem. No decreased urine output. (1 weeks). ( Pt reports stepping on a piece of glass 1 week ago and tried having it removed at [facility] unsuccessfully. They also prescribed him antibiotics. He also reports having a scab on the tip of his penis and pain with urination. He has had unprotected sex in August with someone who may have HIV. Tonight, he also began having cold sweats and muscle aches.). Similar symptoms p reviously. None. Recent medical care: Not recently seen/assessed.REVIEW OF SYSTEMSNo fever, sore throat or throat, sinus drainage or nasal congestion. No cough, difficulty breathing or chestpain or pain. No abdominal pain or pain, nausea, vomiting or diarrhea. No black stools, chills or difficultywith urination or urination. No skin rash or rash, back pain, calf pain or headache. No blackouts, doublevision or vision, fever or eye irritation. No ear pain, epistaxis, runny nose, cough or difficulty breathing.No diarrhea, nausea, vomiting, urinary frequency or hematuria. No joint pain, headache, seizure or easybruising. No difficulty with ambulation. The patient has had chills and muscle aches.PAST HISTORYSee nurses notes. Problems: Chlamydia. Additional Surgeries: Circumcision. Medications: Ciprofloxacin-Ciproflox HCl ER Oral (started 1 week ago for his foot.). Allergies: No Known Drug Allergy.SOCIAL HISTORY 2 Clinical Report - Physicians/Mid Levels [facility] Emergency Department [address] [place] [address] Phone #: ext- [phone] 10/19/2020 22:29 Patient: MAXIME CHRISTIAN Sex: M : 1995 Age: 25y No drug use.ADDITIONAL NOTESThe nursing notes have been reviewed.PHYSICAL EXAMVital Signs: 10/19/2020 22:44 BP: 111/68. MAP: 82. HR: 86. RR: 18. O2 saturation: 100%. Temp: 99.8 F.Pain level now: 10/10. Have been reviewed and appear to be correct. Blood pressure normal. Meanarterial pressure- normal. Heart rate normal. Respiratory rate normal. Temperature normal. Oxygensaturation normal.Appearance: Alert. No acute distress.Eyes: Pupils equal, round and reactive to light.ENT: Ears normal. Nose normal. Pharynx normal.Neck: Normal inspection. Neck supple.CVS: Normal heart rate and rhythm. Heart sounds normal. Pulses normal.Respiratory: No respiratory distress. Painless inspiration. Breath sounds normal. Chest nontender.Abdomen: No visible injury. Soft and nontender. Bowel sounds normal.Back: Normal inspection. No CVA tenderness.Skin: Skin warm and dry. Normal skin color. No rash. Normal skin turgor. (heel left foot. small areaof point tenderness. no obvious foreign body).Extremities: Extremities exhibit normal ROM. No lower extremity edema.Neuro: Oriented X 3. No motor deficit. No sensory deficit.PROGRESS AND PROCEDURESCourse of Care: pt presents for evaluation of possible hiv. blood test drawn. pt is also concerned aboutan abrasion to his penis. he is unsure if this is from zipping his pants on his penis or a sexual encounterhe had with a lady in august. on exam, there is an abrasion. it is not ulcer like. I requested he applyantibiotic ointment for 1 week. if not better, he will need to be re-examined. regarding his foot, I used an18 gauge to try and remove any obvious foreign body. pt states that he still feels the sensation of aforeign body. I requested he f/u with pcp and return if worse or any new symptoms I encouraged him totake all medications as previously instructed. Patient/family counseled. Disposition: Discharged. Condition: good and stable.CLINICAL IMPRESSION Abrasion to the penis. possible foreign body to left heel. 3 Clinical Report - Physicians/Mid Levels [facility] Emergency Department [address] [place] [address] Phone #: ext- [phone] 10/19/2020 22:29 Patient: MAXIME CHRISTIAN Sex: M : 1995 Age: 25yINSTRUCTIONS (return if worse or any new symptoms. finish all antibiotics as previously instructed. follow up with your doctor regarding the sensation of a foreign body to your left heel. you will be called regarding the hiv test if your test is positive.). Warnings: Further evaluation is necessary. GENERAL WARNINGS: Return or contact your physician immediately if your condition worsens or changes unexpectedly, if not improving as expected, or if other problems arise. Your Current Medications: Your current home medications have been reviewed. CONTINUE TAKING THE FOLLOWING MEDICATIONS: Ciprofloxacin-Ciproflox HCl ER Oral : started 1 week ago for his foot. Follow-up: Follow up with your doctor Friday even if well. Call for an appointment. Reason for referral: evaluation. Summary of care provided to patient via paper. Understanding of the discharge instructions verbalized by patient.(Electronically signed by Jabier Matos MD 10/20/2020 01:44) Name Value Range Interpretation Code Description Data Soumya rce(s) Supporting Document(s) ID Date Data Source [id number] 10/22/2020 09:10:00 PM EDT [facility] Name Value Range Interpretation Code Description Data Soumya rce(s) Supporting Document(s) Chlamydia trachomatis rRNA [Presence] in Unspecified specimen by Probe and target amplification method Negative Negative [facility] Neisseria gonorrhoeae rRNA [Presence] in Unspecified specimen by Probe and target amplification method Negative Negative [facility] ID Date Data Source [id number] 10/09/2020 02:21:54 PM EDT [facility] Name Value Range Interpretation Code Description Data Soumya rce(s) Supporting Document(s) Progress Note [facility] [id number] [facility] [file] [id number] ID Date Data Source [id number] 10/07/2020 11:39:58 AM EDT [facility] XR HAND 3 OR MORE VIEWS [id number] RESUL TInterpreted by:DOREEN Bennettlinical history: Right hand fractureViews: 4 views right handIndication: Check injury to right handFindings: The patient has normal osseous anatomy of the distal forearm bones as well as proximal and distal carpal rows. A well- healed slightly flexed malunion of the distal diaphysis of right fifth metacarpal is noted. Adjacent metacarpals appear uninjured. MCP joint spaces are all well preserved. No obvious injury to the phalanges is noted.Impression: Slight angular malunion of distal diaphyseal fracture of right fifth metacarpal shaftThis document has been electronically signed by Veto Silva MD on 10/07/2020 11:37 AM Name Value Range Interpretation Code Description Data Soumya rce(s) Supporting Document(s) ID Date Data Source [id number] 10/05/2020 04:36:56 PM EDT [facility] Name Value Range Interpretation Code Description Data Soumya rce(s) Supporting Document(s) Progress Note [facility] [id number] lbm [file] [id number] ID Date Data Source [id number] 06/28/2020 05:29:00 PM EDT [facility] ([facility] Name Value Range Interpretation Code Description Data Soumya rce(s) Supporting Document(s) Hepatitis C virus Ab [Units/volume] in Serum by Immuno assay Laboratory test result Above high normal [facility] ([facility] <content>This screening test for Hepatit is C Virus was above the 1.0</content>
<content>cutoff index value and will be sent to reference lab</content>
<content>Laboratory [facility] [place], [address],</content>
<content>[place] [id number] for Hep C RNA CUBA testing to confirm or exclude</content>
<content>active Hepatitis C Virus infection. Screening test Positive</content>
<content>samples with high index values (>11.0) usually (95%) confirm</content>
<content>Positive, but <5 of every 100 samples with this result might</content>
<content>be a false positive and Hep C RNA CUBA testing will aid in</content>
<content>patient management.</content>
<content></content> Hepatitis B virus surface Ab [Presence] in Serum by Im munoassay Laboratory test result Normal (applies to non-numeric results) [facility] ([facility] <content>note:<nlbl:demographic_changed> </content>
<content></content> Hepatitis B virus surface Ag [Presence] in Serum or Pl asma by Immunoassay Laboratory test result Normal (applies to non-numeric results) [facility] ([facility] <content>note:<nlbl:demographic_changed> </content>
<content></content> HIV 1+2 Ab [Presence] in Serum Laboratory test result Normal (applies to non- numeric results) [facility] ([facility] ) <content>This assay was performed utiliz ing a chemiluminescent</content>
<content>principle technique for the simultaneous qualitative</content>
<content>detection of HIV-1 p24 antigen & antibodies to HIV-1</content>
<content>(including group O) & HIV-2 using the Siemens Yuuguuaur XP</content>
<content>system.</content>
<content>The estimated 95% confidence interval for sensitivity of</content>
<content>this antigen/antibody combination assay for HIV-1&2</content>
<content>antibodies is 99.7-100% and HIV p24 antigen is 89.4-99.9%.</content>
<content>The estimated 95% confidence interval for specificity of</content>
<content>this antigen/antibody combination in low risk populations is</content>
<content>99.6-99.8%.</content>
<content></content> Hepatitis C virus RNA [Units/volume] (vi ral load) in Serum or Plasma by Probe with amplification Laboratory test result Abnormal (applies to non-numeric results) [facility] ([facility] ) Positive: HCV RNA Detected Performed at: [address] [id number] Facility Sales And Admin: Miriam Louis MD, Phone: [phone] ID Date Data Source [id number] 06/28/2020 05:29:00 PM EDT [facility] ([facility] Name Value Range Interpretation Code Description Data Soumya rce(s) Supporting Document(s) Blood Urea Nitrogen 13 mg/dL 7-18 Normal (applies to non-nume caitlin results) [facility] ([facility] Glucose, Fasting 82 mg/dL 70-100 Normal (applies to non-numeric results) [facility] ([facility] Creatinine For GFR 0.78 mg/dL 0.70-1.30 Normal (applies to non -numeric results) [facility] ([facility] Glomerular Filtration Rate Laboratory test result Normal (applies to non- numeric results) [facility] <content>Units are mL/min/1.73 m2</content>
<content></content>
<content>Chronic Kidney Disease Staging per NKF:</content>
<content></content>
<content>Stage I & II GFR >=60 Normal to Mildly Decreased</content>
<content>Stage III GFR 30- 59 Moderately Decreased</content>
<content>Stage IV GFR 15-29 Severely Decreased</content>
<content>Stage V GFR <15 Very Little GFR Left</content>
<content>ESRD GFR <15 on BRASS BOBBIN WINDER</content>
<content></content> Sodium Level 139 meq/L 136-145 Normal (applies to non-numeric res ults) [facility] ([facility] Potassium Serum 4.5 meq/L 3.5-5.1 Normal (applies to non-numeric results) [facility] ([facility] Chloride Level 102 meq/L 98-107 Normal (applies to non-numeric r esults) [facility] ([facility] Carbon Dioxide Level 31 mmol/L 20-29 Above high normal [facility] ([facility] Calcium Level 9.5 mg/dL 8.5-10.1 Normal (applies to non-numeric re sults) [facility] ([facility] Anion Gap 6 meq/L 8-16 Below low normal [facility] ( [facility] Alt/SGPT 39 IU/L 0-32 Above high normal [facility] ([facility] Ast/Sgot 36 IU/L Normal (applies to non-numeric resul ts) [facility] ([facility] Alkaline Phosphatase 115 U/L 45-117 Normal (applies to non-num anderson results) [facility] ([facility] Total Protein 8.0 GM/DL 6.4-8.2 Normal (applies to non-numeric re sults) [facility] ([facility] Bilirubin,Total 0.2 mg/dL 0.2-1.0 Normal (applies to non-numeric results) [facility] ([facility] Albumin/Globulin Ratio 0.9 Normal (applies to non-n umeric results) [facility] ([facility] Albumin 3.8 GM/DL 3.2-5.2 Normal (applies to non-numeric resul ts) [facility] ([facility] ID Date Data Source [id number] 06/28/2020 05:29:00 PM EDT [facility] ([facility] Name Value Range Interpretation Code Description Data Soumya rce(s) Supporting Document(s) Ethanol [Mass/volume] in Serum or Plasma Laboratory test result 0.000-0.010 Normal (applies to non-numeric results) [facility] ([facility] <content>note:<nlbl:demographic_changed> </content>
<content></content> Acetaminophen [Mass/volume] in Serum or Plasma Laboratory test r esult 10.0-30.0 Below low normal [facility] ([facility] ) <content>note:<nlbl:demographic_changed> </content>
<content></content> Salicylates [Mass/volume] in Serum or Plasma Laboratory test res ult 5.0-30.0 Below low normal [facility] ([facility] ) <content>note:<nlbl:demographic_changed> </content>
<content></content> ID Date Data Source [id number] 06/28/2020 05:29:00 PM EDT [facility] ([facility] Name Value Range Interpretation Code Description Data Soumya rce(s) Supporting Document(s) Barbiturates Urine Laboratory test result Normal (applies to non-numeric results) [facility] ([facility] ) Amphetamines Level Urine Laboratory test result Normal (applies to non-numeric results) [facility] ([facility] ) Benzodiazepines Urine Laboratory test result Nor mal (applies to non-numeric results) [facility] ([facility] ) Cannabinoids Urine Laboratory test result Normal (applies to non-numeric results) [facility] ([facility] ) Methadone Urine Laboratory test result Normal (a pplies to non-numeric results) [facility] ([facility] ) Cocaine Metabolite Urine Laboratory test result Normal (applies to non-numeric results) [facility] ([facility] ) Phencyclidine Urine Laboratory test result Jabier l (applies to non-numeric results) [facility] ([facility] ) ALL PRESUMPTIVE POSITIVE FINDINGS AR E UNCONFIRMED THRESHOLD IN NG/ML AMPHETAMINES/METHAMPHET 1000 BARBITURATES [...] CLOSELY RELATED COMPOUNDS PLEASE CALL THE LAB. Opiates Urine Laboratory test result Normal (applies t o non-numeric results) [facility] ([facility] ID Date Data Source [id number] 06/28/2020 05:29:00 PM EDT [facility] ([facility] Name Value Range Interpretation Code Description Data Soumya rce(s) Supporting Document(s) White Blood Count 10.7 10 4.0-10.0 Above high normal [facility] ([facility] Red Blood Count 5.36 10 4.30-6.10 Normal (applies to non-numeric results) [facility] ([facility] Hemoglobin 14.0 g/dL 13.5-17.5 Normal (applies to non-numeric resul ts) [facility] ([facility] Hematocrit 45.7 % 42.0-52.0 Normal (applies to non-numeric resul ts) [facility] ([facility] Mean Corpuscular Hemoglobin 26.1 pg 27.0-33.0 Below low normal [facility] ([facility] Mean Corpuscular Volume 85.3 fl 80.0-96.0 Normal ( applies to non-numeric results) [facility] ([facility] ) Red Cell Distribution Width 18.6 % 11.5-14.5 Above high normal [facility] ([facility] Mean Corpuscular HGB Conc 30.6 g/dL 32.0-36.5 Below low normal [facility] ([facility] Platelet Count, Automated 445 10 150-450 Normal (applies to non-numeric results) [facility] ([facility] ) Neutrophils % 67.1 % 36.0-66.0 Above high normal MEDE NT ([facility] Lymph % 19.2 % 24.0-44.0 Below low normal [facility] ( [facility] [place] % 7.9 % 2.0-8.0 Normal (applies to non-numeric resul ts) [facility] ([facility] Eos % 4.7 % 0.0-3.0 Above high normal [facility] ([facility] Baso % 0.7 % 0.0-1.0 Normal (applies to non-numeric resul ts) [facility] ([facility] Immature Granulocyte % 0.4 % 0-3.0 Normal (applies to non-n umeric results) [facility] ([facility] Nucleated Red Blood Cell % 0.0 % 0-0 Normal (applies to n on-numeric results) [facility] ([facility] Neutrophils # 7.2 10 1.5-8.5 Normal (applies to non-numeric re sults) [facility] ([facility] Lymph # 2.1 10 1.5-5.0 Normal (applies to non-numeric resul ts) [facility] Eos # 0.5 10 0.0-0.5 Normal (applies to non-numeric resul ts) [facility] [place] # 0.8 10 0.0-0.8 Normal (applies to non-numeric resul ts) [facility] ([facility] Baso # 0.1 10 0.0-0.2 Normal (applies to non-numeric resul ts) [facility] ([facility] ID Date Data Source [id number] 01/29/2020 12:00:00 AM EDT [facility] Name Value Range Interpretation Code Description Data Soumya rce(s) Supporting Document(s) SARS coronavirus 2 RNA [Presence] in Res piratory specimen by CUBA with probe detection [facility] This lab was ordered by Lee Dhillon and reported by [employer]. Procedure Social History Code Duration Value Status Description Data Source(s ) Smoking 01/02/2021 12:00:00 AM EDT Patient is a former smoker completed Patient is a former smoker [facility] ([facility]) Smoking 01/01/2021 12:00:00 AM EDT Former Smoker completed Former Smoker eCW ([facility]) Smoking 01/01/2021 12:00:00 AM EDT Former Smoker completed Former Smoker eCW1 ([facility]) Smoking 01/01/2021 12:00:00 AM EDT Former Smoker completed Former Smoker W ([facility]) Vital Signs ID Date Data Source UNK Name Value Range Interpretation Code Description Data Source(s) Respiratory rate 18 /min 18 /min eCW1 ([facility]) Body temperature 98 [degF] 98 [degF] eCW1 ([facility]) Systolic blood pressure 124 mm[Hg] 124 mm[Hg] e CW1 ([facility]) Diastolic blood pressure 72 mm[Hg] 72 mm[Hg] eCW1 ([facility]) Body weight 180 [lb_av] 180 [lb_av] eCW1 ([facility]) Body weight 81.65 kg 81.65 kg eCW1 ([facility]) Body height [in_i] eCW1 ([facility]) Body mass index (BMI) [Ratio] 26.58 kg/m2 26.58 kg/m2 eCW1 ([facility]) Heart rate 105 /min 105 /min eCW1 ([facility]) Systolic blood pressure 128 mm[Hg] 128 mm[Hg] M [facility] ([facility] Diastolic blood pressure 62 mm[Hg] 62 mm[Hg] [facility] ([facility] Body temperature 97.5 [degF] 97.5 [degF] [facility] ([facility] Heart rate 109 /min 109 /min [facility] ([facility] Respiratory rate 16 /min 16 /min [facility] ( [facility] Body height 69 [in_i] 69 [in_i] [facility] ([facility] 5'9" Body weight 180.00 [lb_av] 180.00 [lb_av] MEDEN T ([facility] [place] body weight 160 [lb_av] 160 [lb_av] MEDEN T ([facility] Body mass index (BMI) [Ratio] 26.6 kg/m2 26.6 k g/m2 [facility] ([facility] Oxygen saturation in Arterial blood by Pulse oximetry 98 % 98 % [facility] ([facility] Oxygen saturation in Arterial blood by Pulse oximetry 98 % 98 % [facility] ([facility] Systolic blood pressure 126 mm[Hg] 126 mm[Hg] M EDENT ([facility] Diastolic blood pressure 56 mm[Hg] 56 mm[Hg] [facility] ([facility] Body temperature 97.5 [degF] 97.5 [degF] [facility] ([facility] Heart rate 74 /min 74 /min [facility] ([facility] Respiratory rate 18 /min 18 /min [facility] ( [facility] Body height 69 [in_i] 69 [in_i] [facility] ([facility] 5'9" Body weight 178.00 [lb_av] 178.00 [lb_av] MEDEN T ([facility] [place] body weight 160 [lb_av] 160 [lb_av] MEDEN T ([facility] Body mass index (BMI) [Ratio] 26.3 kg/m2 26.3 k g/m2 [facility] ([facility] [place] body weight 160 [lb_av] 160 [lb_av] MEDEN T ([facility] Systolic blood pressure 112 mm[Hg] 112 mm[Hg] M EDENT ([facility] Diastolic blood pressure 72 mm[Hg] 72 mm[Hg] [facility] ([facility] Body temperature 97.8 [degF] 97.8 [degF] [facility] ([facility] Heart rate 72 /min 72 /min [facility] ([facility] Respiratory rate 16 /min 16 /min [facility] ( [facility] Body height 69 [in_i] 69 [in_i] [facility] ([facility] 5'9" Body weight 173.00 [lb_av] 173.00 [lb_av] MEDEN T ([facility] Body mass index (BMI) [Ratio] 25.5 kg/m2 25.5 k g/m2 [facility] ([facility] Oxygen saturation in Arterial blood by Pulse oximetry 98 % 98 % [facility] ([facility] Heart rate 78 /min 78 /min [facility] ([facility] Respiratory rate 16 /min 16 /min [facility] ( [facility] Body height 69 [in_i] 69 [in_i] [facility] 5'9" Body weight 172.00 [lb_av] 172.00 [lb_av] MEDEN T ([facility] [place] body weight 160 [lb_av] 160 [lb_av] MEDEN T ([facility] Body mass index (BMI) [Ratio] 25.4 kg/m2 25.4 k g/m2 [facility] ([facility] Oxygen saturation in Arterial blood by Pulse oximetry 99 % 99 % [facility] ([facility] Systolic blood pressure 128 mm[Hg] 128 mm[Hg] M EDENT ([facility] Diastolic blood pressure 70 mm[Hg] 70 mm[Hg] [facility] ([facility] Body temperature 97.2 [degF] 97.2 [degF] [facility] ([facility] Body height 69 [in_i] 69 [in_i] [facility] ([facility] 5'9" Systolic blood pressure 120 mm[Hg] 120 mm[Hg] M EDENT ([facility] Diastolic blood pressure 72 mm[Hg] 72 mm[Hg] [facility] ([facility] Body temperature 97.6 [degF] 97.6 [degF] [facility] ([facility] Heart rate 82 /min 82 /min [facility] ([facility] Respiratory rate 16 /min 16 /min [facility] ( [facility] Body weight 171.00 [lb_av] 171.00 [lb_av] MEDEN T ([facility] [place] body weight 160 [lb_av] 160 [lb_av] MEDEN T ([facility] Body mass index (BMI) [Ratio] 25.2 kg/m2 25.2 k g/m2 [facility] ([facility] Oxygen saturation in Arterial blood by Pulse oximetry 98 % 98 % [facility] ([facility] Body temperature 97.8 [degF] 97.8 [degF] [facility] ([facility] Heart rate 80 /min 80 /min [facility] ([facility] Respiratory rate 18 /min 18 /min [facility] ( [facility] Body height 69 [in_i] 69 [in_i] [facility] ([facility] 5'9" Body weight 166.00 [lb_av] 166.00 [lb_av] MEDEN T ([facility] [place] body weight 160 [lb_av] 160 [lb_av] MEDEN T ([facility] Systolic blood pressure 120 mm[Hg] 120 mm[Hg] M EDENT ([facility] Diastolic blood pressure 70 mm[Hg] 70 mm[Hg] [facility] ([facility] Body mass index (BMI) [Ratio] 24.5 kg/m2 24.5 k g/m2 [facility] ([facility] Oxygen saturation in Arterial blood by Pulse oximetry 98 % 98 % [facility] ([facility] Body temperature 96.8 [degF] 96.8 [degF] [facility] ([facility] Body height 70 [in_i] 70 [in_i] [facility] ([facility] 5'10" Body weight 180.50 [lb_av] 180.50 [lb_av] MEDEN T ([facility] Body mass index (BMI) [Ratio] 25.9 kg/m2 25.9 k g/m2 [facility] ([facility]
[2021-01-24] MEDS ORDERED: SOFO1TAB PO (14:46)
== END 2021-01-23 16:05 | disposition left against medical advice (07) ==
LOC: M ED 14:21
DX: Z53.21 Procedure and treatment not carried out due to patient leaving prior to being seen by health care provider (principal)

== ENCOUNTER 2021-01-24 10:30 | Emergency (ER) | payer MEDICAID, OTHER ==
[~2021-01-24] VITALS: Ht 180.3 cm; Wt 83.3 kg
--- OUTSIDE RECORDS SUMMARY | 2021-01-24 10:39 | CCD ---
Author Author [facility] Organization [facility] Address Unknown Phone Unavailable Care Team Providers Care Dog Raiser Name Role Phone Maring, Moise PA Unavailable [...] NEENA, Duglas COTTO MD Unavailable Unavailable NEENA, Dgulas COTTO MD Unavailable Unavailable NEENA, Duglas COTTO [...] Duglas COTTO MD Unavailable Unavailable NEENA, Duglas OCTTO MD Unavailable Unavailable NEENA, Duglas COTTO MD Unavailable Unavailable NEENA, Duglas COTTO MD Unavailable Unavailable NEENA, Duglas COTTO MD Unavailable Unavailable NEENA, Duglas COTTO MD Unavailable Unavailable NEENA, Duglas COTTO MD Unavailable Unavailable NEENA, Duglas COTTO MD Unavailable Unavailable NEENA, Duglas COTTO MD Unavailable Unavailable NENEA, Duglas COTTO MD Unavailable Unavailable NEENA, Duglas [...] Unavailable Anup, D Saul PA Unavailable Unavailable Aunp, D Saul PA Unavailable Unavailable Anup, D [...] Unavailable SHAWNA, L JABIER MD Unavailable Unavailable SAHWNA, L JABIER MD Unavailable Unavailable SHAWNA, L [...] is protected by Article 27-F of the [place] Public Health law. If you continue you may have access to information: Regarding HIV / AIDS; Provided by facilities licensed or operated by the [facility] Office of Mental Health; or Provided by the [facility] Office for People With Developmental Disabilities. If such information is present, then the following [facility] mandated warning applies: This information has been [...] law may result in a fine or care home sentence or both. A general authorization for the release of medical or other information is NOT sufficient authorization for further disc losure. Allergies and Adverse Reactions Type Description Substance Reaction Status Data Source(s ) Animal Allergy BEE STING BEE STING [facility] Family History Family Member Name Family Member Gender Family Member Status Date o f Status Description Data Source(s) Unknown Unknown Problem MEDENT ([facility]) Unknown Male Problem MEDENT ([facility]) Unknown Male Problem MEDENT ([facility] Encounters Encounter Providers Location Date Indications Data Source(s ) Outpatient Attender: Moise MCKEON 01/24/20 12:27:38 PM EDT - 01/23/2021 01:41:32 PM EDT [facility] ([facility] ) Outpatient Att[facility] STAFF NON 01/16/2021 10:32:00 AM EDT - 01/16/2021 10:32:00 AM EDT [facility] [address] [address] 01/16/2021 12:00:00 AM EDT eCW1 ([facility]) Unknown [address] [facility] [place] [address] 01/12/2021 12:00:00 AM EDT eCW1 ([facility]) Outpatient Attender: DEMETRI FLORES DPMConsultant: STAFF NON 01/02/2021 08:51:00 AM EDT - 01/02/2021 08:51:00 AM EDT [facility] Outpatient [address] [facility] [place] [address] 01/01/2021 12:00:00 AM EDT eCW1 ([facility]) Outpatient Attender: DEMETRI FLORES DPMConsultant: STAFF NON 12/18/2020 10:26:00 AM EDT - 12/18/2020 10:26:00 AM EDT [facility] Outpatient Attender: DEMETRI FLORES DPMConsultant: STAFF NON 12/13/2020 09:36:00 AM EDT - 12/13/2020 09:36:00 AM EDT [facility] Discharge cancelled. Disregard status an d discharged date. Outpatient Attender: Reuben Coughlin [place] [facility] 12/13/2020 09:00:0 0 AM EDT MEDENT ([facility] 12/07/2020 11:00:0 0 AM EDT MEDENT ([facility] Emergency Attender: JABIER MATOS MDConsultant: STAFF NON 10/19/2020 10:29:00 PM EDT - 10/20/2020 02:41:00 AM EDT [facility] Patient discharged. Outpatient Attender: MARTIN PEDERSEN RPA 10/13 05:29:24 PM EDT - 10/13/2020 07:43:19 PM EDT [facility] ([facility] ) Outpatient Attender: KIRTI HERNANDEZeferrer: Familia Coughlin MD [id number] 10/05/2020 12:00:00 AM EDT - 10/17/2020 10:34:01 AM T [facility] Outpatient Referrer: KIRTI CHAUDHARY MD 10/05/2020 12:00: 00 AM EDT Unspecified injury of right wrist, hand and finger(s), initial encounter [facility] Unspecified injury of right wrist, hand and finger(s), initial encounter Outpatient Attender: Reuben Coughlin [place] [facility] 09/14/2020 02:45:0 0 PM EDT MEDENT ([facility] Outpatient Attender: Saul MCKEON [place] [facility] 02:20:00 PM EDT MEDENT ([facility] Outpatient Attender: Ifeoma MCKEON 021 07:02:07 PM EDT - 08/27/2020 07:25:31 PM EDT [facility] ([facility] ) Outpatient Attender: MARTIN PEDERSEN RPA 08/05 02:43:33 PM EDT - 08/05/2020 04:47:30 PM EDT [facility] ([facility] ) Outpatient Attender: Gris Cordero MD 0 06/27/2020 07:12:21 PM EDT - 06/27/2020 07:33:08 PM EDT [facility] ([facility]) Outpatient Attender: Reuben Coughlin [place] [facility] 06/07/2020 12:15:0 0 PM EST MEDENT ([facility] Outpatient Attender: KIRTI CHAUDHARY MDReferrer: Familia Coughlin MD 03/16/2020 12:00:00 AM [facility] Outpatient Attender: Familia Coughlin MD Physical Therapy 01/18/2020 1 0:45:00 AM EDT MEDENT ([facility] ) Outpatient Attender: Reuben CoughlinConsultant: STAFF NON 10/04/2019 04:27:00 PM EDT - 12/16/2019 10:35:00 AM EDT [facility] Patient discharged. Immunizations Vaccine Date Status [...] A DAY FOR 10 DAYS SOLD: 10/15/2020 [facility] 2.5 % 08/30/2020 12:00:00 AM EDT ointment 28 APPLY TO AFFECTED AREA(S) TWO TIMES A DAY APPLY TO AFFECTED AREA(S) TWO TIMES A DAY SOLD: 08/30/2020 [facility] doxycycline hyclate 100 MG Oral Capsule DOXYCYCLINE HYCLATE 08/28/2020 12:00:00 AM EDT capsule 14 TAKE ONE CAPSULE BY MOUTH TW ICE A DAY FOR 7 DAYS TAKE ONE CAPSULE BY MOUTH TWICE A DAY FOR 7 DAYS SOLD: 08/30/2020 [facility] Minocycline 50 MG Oral Capsule Minocycline HCL 06/07/2020 12:00:00 AM EST ORAL completed MEDENT ([facility] 0.1 % 04/20/2020 12:00:00 AM EST cream 30 APPLY TOPICALLY TO AFFECTED AREA(S) TWO TIMES A DAY APPLY TOPICALLY TO AFFECTED AREA(S) TWO TIMES A DAY SOLD: 04/28/2020 [facility] 30 mg 02/13/2020 12:00:00 AM EST tablet 40 TAKE ONE TABLET BY MOUTH FOUR TIMES A DAY NEEDED TAKE ONE TABLET BY MOUTH FOUR TIMES A DAY NEEDED SO LD: 02/13/2020 [facility] doxycycline hyclate 100 MG Oral Capsule DOXYCYCLINE HYCLATE 02/13/2020 12:00:00 AM EST capsule 20 TAKE ONE CAPSULE BY MOUTH TW ICE A DAY FOR 10 DAYS TAKE ONE CAPSULE BY MOUTH TWICE A DAY FOR 10 DAYS SOLD: 02/13/2020 [facility] 4 % 02/13/2020 12:00:00 AM EST liquid 118 DIRECTED TO CLEANSE AFFECTED AREA WHEN BATHING DIRECTED TO CLEANSE AFFECTED AREA WHEN BATHING SOLD : 02/13/2020 [facility] Azelastine hydrochloride 0.206 MG/ACTUAT Metered Dose Nasal [place] 0.15 % (205.5 mcg) AZELASTINE HCL 01/29/2020 [...] type / Coverage type Policy ID Covered republican ID Covered republican's relationship to snow Policy Snow Plan Information [employer] [id number] Family Dependent [id number] [employer] [id number] Family Dependent [id number] [employer] [id number] Family Dependent [id number] [employer] [id number] Family Dependent [id number] [employer] [id number] Family Dependent [id number] BS [facility] [facility] Part B [id number] Self Z [id number] [place] P[place] 302/307 [id number] FA2 [id number] [place] PPO 302/307 [id number] FA2 [id number] [place] PPO 302/307 [id number] FA2 [id number] BS [employer] [employer] [id number] Family Dependent V [id number] BS [employer] [employer] [id number] Family Dependent V [id number] BS [employer] [employer] [id number] Family Dependent V [id number] BS [employer] [employer] [id number] Family Dependent V [id number] EXCELLUS H [id number] Child [id number] WORKERS COMPENSATION GENERIC W [id number] Empl [id number] WORKERS COMPENSATION GENERIC W [id number] Empl [id number] [place] [employer] [id number] Self [id number] Mario [employer] [id number] Self [id number] Needs Workers Comp Information [facility] [id number] Self [id number] Needs WorkComp [place] Work[employer] Health Claim [id number] Self [id number] [place] [id number] B [id number] [place] [id number] MEDICAID -PHYSICIAN [id number] 1 [id number] MEDICAID [facility] [id number] MARIO [id number] SP [id number] PRIVATE PAY PAT Muñiz 18 PAT Muñiz [place] O [id number] S [id number] MARIO [id number] SP [id number] SELF PAY ONLY [id number] SP [id number] BLUE CROSS BLUE SHIELD -O/P [id number] Self Pay P UNAVAILABLE S UNAVAILA BLE BCBS Commercial VYA [id number] VYA [id number] EX[employer] BCBS B [id number] D [id number] EXCELLUS BCBS B [id number] D [id number] BCBS Commercial VYA [id number] Self [id number] [id number] BCBS Commercial VYA [id number] Self VYA [id number] BCBS [facility] 304/804 [id number] FA2 [id number] [facility] 280/780 [id number] FA2 [id number] [place] 450/950 [id number] EXCELLUS BCBS P [id number] C [id number] Problems, Conditions, and Diagnoses Code Display Name Description Problem Type Effective Dates Data Source(s) B070 Plantar wart Plantar wart Diagnosis 01/02/2021 08:51:00 A M [facility] Y[address] or not applicable Unspecified place or not applicable Diagnosis 10/19/2020 10:29:00 PM [facility] [id number] Exposure to other specified factors, ini tial encounter Exposure to other specified factors, initial encounter Diagnosis 10/19/2020 10:29:00 PM [facility] Z23 Encounter for immunization Encounter for immunization Diagnosis 10/19/2020 10:29:00 PM [facility] H75803 Nicotine dependence, cigarettes, uncompl icated Nicotine dependence, cigarettes, uncomplicated Diagnosis 10/19/2020 10:29:[address] [facility] [id number] Abrasion of penis, initial encounter Abr asion of penis, initial encounter Diagnosis 10/19/2020 10:29:00 PM EDT [facility] L989 Disorder of the skin and subcutaneous ti ssue, unspecified Disorder of the skin and subcutaneous tissue, unspecified Diagnosis 10/19/2020 10:29:0 0 PM EDT [facility] S69.91XA Unspecified injury of right wrist, hand and finger(s), initial encounter Unspecified injury of right wrist, hand and finger(s), initial encounter Diagnosis 10/05/2020 02:59:45 PM EDT [facility] R99 Ill-defined and unknown cause of mortali ty Ill-defined and unknown cause of mortality Diagnosis 12/16/2019 10:35:00 AM EDT [facility] [id number] Vaccine refused by patient Vaccine refused by patient Problem 11/30/2020 12:00:00 AM EDT MEDENT ([facility] ) Note: COVID and FLU -may think about g etting it Surgeries/Procedures Procedure Description Date Indications Data Source(s) Destruction Benign Lesions Other Than Skin Tags Or Cutan Vas cular 01/16/2021 12:00:00 AM EDT MEDENT ([facility]) Destruction Benign Lesions Other Than Skin Tags Or Cutan Vas cular 01/02/2021 12:00:00 AM EDT MEDENT ([facility]) Destruction Benign Lesions Other Than Skin Tags Or Cutan Vas cular 12/18/2020 12:00:00 AM EDT MEDENT ([facility]) OFFICE OUTPATIENT NEW 20 MINUTES 12/18/2020 12:00:00 A M EDT MEDENT ([facility]) OFFICE OUTPATIENT VISIT 15 MINUTES 12/13/2020 12:00:00 AM EDT MEDENT ([facility] Paring Benign Hyperkeratoric Single [place] Or Callus 12/07/2020 12:00:00 AM EDT MEDENT ([facility] ) OFFICE OUTPATIENT VISIT 15 MINUTES 12/07/2020 12:00:00 AM EDT MEDENT ([facility] Paring Benign Hyperkeratoric Single [place] Or Callus 11/30/2020 12:00:00 AM EDT MEDENT [...] 3 VIEWS 12/14/2019 12:00:00 AM EDT MEDENT ([facility]) RADEX HAND MINIMUM 3 VIEWS 11/26/2019 12:00:00 AM EDT MEDENT ([facility]) Results ID Date Data Source HEPATITIS C QUANT BY PCR 01/01/2021 12:00:00 AM EDT eCW1 ([facility]) Name Value Range Interpretation Code Description Data Soumya rce(s) Supporting Document(s) 5.155 . Hepatitis C log10 eCW1 ([facility]) [id number] . HEPATITIS C QUANTITATION eCW1 ([facility]) ID Date Data Source HEPATITIS C FIBROSURE [id number] 01/01/2021 12:00:00 AM EDT eC W1 ([facility]) Name Value Range Interpretation Code Description Data Soumya rce(s) Supporting Document(s) . FIBROSIS STAGE eCW1 ([facility]) 0.04 0.00-0.21 FIBROSIS SCORE eCW1 ([facility]) 0.12 0.00-0.17 NECROINFLAM SCORE eCW1 ([facility]) A0-No activity . NECROINFLAMM GRADE eCW1 ( [facility]) 154 101-178 APOLIPOPROTEIN A-1 eCW1 ([facility]) 0.3 0.0-1.2 TOTAL BILIRUBIN eCW1 ([facility]) 144 110-276 ALPHA 2-MACROGLOBULIN eCW1 ([facility]) 189 17-317 HAPTOGLOBIN eCW1 ([facility]) 33 0-55 ALT eCW1 ([facility]) 33 0-65 GGT eCW1 ([facility]) . INTERPRETATION eCW1 ([facility]) . LIMITATIONS eCW1 ([facility]) . NECROINFLAM SCORING eCW1 ([facility]) . COMMENT : eCW1 ([facility]) . FIBROSIS SCORING eCW1 ([facility]) ID Date Data Source [id number] 10/19/2020 10:29:00 PM EDT [facility] 1 OrderSheet [facility] Emergency Department [address] [place] [address] Phone #: ext- [phone] 10/19/2020 22:29 Patient: MAXIME CHRISTIAN Sex: M [...] rce(s) Supporting Document(s) ID Date Data Source [id number] 10/19/2020 10:29:00 PM EDT [facility] 1 Medication Reconciliation Report [facility] Emergency Department [address] [place] [address] Phone #: ext- [phone] 10/19/2020 22:29 Patient: [...] rce(s) Supporting Document(s) ID Date Data Source [id number] 10/19/2020 10:29:00 PM EDT [facility] 1 Medication Administration Record [facility] Emergency Department [address] [place] [address] Phone #: ext- [phone] 10/19/2020 22:29 Patient: MAXIME CHRISTIAN Sex: M : 1995 Age: 25yWeight: 81.6 kgHeight/Length: 71 inBMI: 25.1ALLERGIES: No Known Drug Allergy Date/Time Medication Administered Medication OrderedGiven TDAP [IM] Tdap IM 0.5 mL01:38 10/20/2020 Dose: 0.5 mL Haylie Mccurdy R.N. Name Value Range Interpretation Code Description Data Soumya rce(s) Supporting Document(s) ID Date Data Source [id number] 10/19/2020 10:29:00 PM EDT [facility] 1 General Instructions [facility] Emergency Department [address] [place] [address] Phone #: ext- [phone] 10/19/2020 22:29 Patient: [...] by your healthcare provider: 2 General Instructions [facility] Emergency Department [address] [place] [address] Phone #: ext- [phone] 10/19/2020 22:29 Patient: MAXIME CHRISTIAN Sex: M [...] any body part near the wound The [employer] [address] [place] [address], [place] [address]. All rights reserved. This information is not intended as asubstitute for professional med [facility] care. Always follow your healthcare professional's instructions. You have been given the following additional information: Abrasions 3 General Instructions [facility] Emergency Department [address] [place] [address] Phone #: ext- [phone] 10/19/2020 22:29 Patient: MAXIME CHRISTIAN Sex: M : 1995 Age: 25y(Electronically signed by Jabier Matos MD 10/20/2020 01:44) Name Value Range Interpretation Code Description Data Soumya rce(s) Supporting Document(s) ID Date Data Source [id number] 10/19/2020 10:29:00 PM EDT [facility] 1 Clinical Report - Nurses [facility] Emergency Department [address] [place] [address] Phone #: ext- [phone] 10/19/2020 22:29 Patient: MAXIME CHRISTIAN Sex: M [...] began having cold sweats and muscle aches.).Treatment STATION INSPECTOR:Seen within the last 30 days in a [...] R.N.AllergiesNo Known Drug Allergy. --22:50 10/19/20 Haylie Malnoey R.N.PROBLEMS:Chlamydia. --22:51 10/19/20 Haylie Maloney R.N.ADDITIONAL SURGERIES:Circumcision. --22:51 10/19/20 Haylie Maloney R.N. 2 Clinical Report - Nurses [facility] Emergency Department [address] [place] [address] Phone #: ext- [phone] 10/19/2020 22:29 Patient: MAXIME CHRISTIAN Sex: M [...] on patient. --22:54 10/19/20 Haylie Maloney R.N.PHYSICAL [id number] 10/19/20. Ambulatory to room.GENERAL / NEURO / [...] PROGRESS NOTES 3 Clinical Report - Nurses [facility] Emergency Department [address] [place] [address] Phone #: ext- [phone] 10/19/2020 22:29 Patient: MAXIME CHRISTIAN Sex: M : 1995 Age: 25y 22:57 10/19/20. Reassurance given. Two patient identifiers checked. Call light placed in reach. Side rails up x 2. Bed placed in lowest position. Brakes of bed on. Patient ready for evaluation- ED physician notified. --22:57 10/19/20 Chester Ashley R.N. 01:38 10/20/2020 TDAP IM 0.5 mL given(Lot#: [id number], expiration date: 04/19/2022, Seismograph Observer: [employer]). Given in the right deltoid. Allergies verified and confirmed 5 rights. Information reviewed with patient including reason for taking this medication. Verbalizes understanding. --01:38 10/20/20 Haylie Maloney R.N.DISPOSITION / DISCHARGE Condition at departure: improved and stable. No learning barriers present. Discharge instructions provided and reviewed with the patient. Patient verbalized understanding. Written instruction s provided in German. The patient was discharged by the physician. [...] rce(s) Supporting Document(s) ID Date Data Source [id number] 10/19/2020 10:29:00 PM EDT [facility] 1 Clinical Report - Physicians/Mid Levels [facility] Emergency Department [address] [place] [address] Phone #: ext- [phone] 10/19/2020 22:29 Patient: [...] ago and tried having it removed at [facility] unsuccessfully. They also prescribed him antibiotics. He [...] HISTORY 2 Clinical Report - Physicians/Mid Levels [facility] Emergency Department [address] [place] [address] Phone #: ext- [phone] 10/19/2020 22:29 Patient: [...] heel. 3 Clinical Report - Physicians/Mid Levels [facility] Emergency Department [address] [place] [address] Phone #: ext- [phone] 10/19/2020 22:29 Patient: [...] rce(s) Supporting Document(s) ID Date Data Source [id number] 10/22/2020 09:10:00 PM EDT [facility] Name Value Range Interpretation Code Description Data Soumya rce(s) Supporting Document(s) Chlamydia trachomatis rRNA [Presence] in Unspecified specimen by Probe and target amplification method Negative Negative [facility] Neisseria gonorrhoeae rRNA [Presence] in Unspecified specimen by Probe and target amplification method Negative Negative [facility] ID Date Data Source [id number] 10/09/2020 02:21:54 PM EDT [facility] Name Value Range Interpretation Code Description Data Soumya rce(s) Supporting Document(s) Progress Note [facility] [id number] [facility] [file] [id number] ID Date Data Source [id number] 10/07/2020 11:39:58 AM EDT [facility] XR HAND 3 OR MORE VIEWS [id number] RESUL TInterpreted by:DOREEN Bennettlinical history: Right hand [...] rce(s) Supporting Document(s) ID Date Data Source [id number] 10/05/2020 04:36:56 PM EDT [facility] Name Value Range Interpretation Code Description Data Soumya rce(s) Supporting Document(s) Progress Note [facility] [id number] lbm [file] [id number]== ID Date Data Source [id number] 06/28/2020 05:29:00 PM EDT MEDENT ([facility] Name Value Range Interpretation Code Description Data Soumya rce(s) Supporting Document(s) Hepatitis C virus Ab [Units/volume] in Serum by Immuno assay Laboratory test result Above high normal MEDENT ([facility] <content>This screening test for Hepatit is C Virus was above the 1.0</content>
<content>cutoff index value and will be sent to reference lab</content>
<content>Laboratory [facility] [place], Devora Martinez,</content>
<content>[place] [address] for Hep C RNA CUBA testing to [...] group O) & HIV-2 using the [employer] XP</content>
<content>system.</content>
<content>The estimated 95% confidence interval [...] result Abnormal (applies to non-numeric results) TEZ ([facility] ) Positive: HCV RNA Detected Performed at: [address] [id number] [employer]: Miriam Louis MD, Phone: [phone] ID Date Data Source [id number] 06/28/2020 05:29:00 PM EDT TEZ ([facility] Name Value Range Interpretation Code Description Data Soumya rce(s) Supporting Document(s) Blood Urea Nitrogen 13 mg/dL 7-18 Normal (applies to non-nume caitlin results) MEDPREETHI ([facility] Glucose, Fasting 82 mg/dL 70-100 Normal (applies to non-numeric results) TEZ ([facility] Creatinine For GFR 0.78 mg/dL 0.70-1.30 Normal (applies to non -numeric results) TEZ ([facility] Glomerular Filtration Rate Laboratory test result Normal (applies to non- numeric results) [facility] <content>Units are mL/min/1.73 m2</content>
<content></content>
<content>Chronic Kidney Disease Staging per NKF:</content>
<content></content>
<content>Stage I & II GFR >=60 Normal to Mildly Decreased</content>
<content>Stage III GFR 30- 59 Moderately Decreased</content>
<content>Stage IV GFR 15-29 Severely Decreased</content>
<content>Stage V GFR <15 Very Little GFR Left</content>
<content>ESRD GFR <15 on OR NURSE MANAGER</content>
<content></content> Sodium Level 139 meq/L 136-145 Normal (applies to non-numeric res ults) TEZ ([facility] Potassium Serum 4.5 meq/L 3.5-5.1 Normal (applies to non-numeric results) TEZ ([facility] Chloride Level 102 meq/L 98-107 Normal (applies to non-numeric r esults) MEDENT ([facility] Carbon Dioxide Level 31 mmol/L 20-29 Above high normal MEDENT ([facility] Calcium Level 9.5 mg/dL 8.5-10.1 Normal (applies to non-numeric re sults) [facility] ([facility] Anion Gap 6 meq/L 8-16 Below low normal [facility] ( [facility] Alt/SGPT 39 IU/L 0-32 Above high normal [facility] ([facility] Ast/Sgot 36 IU/L Normal (applies to non-numeric resul ts) [facility] ([facility] Alkaline Phosphatase 115 U/L 45-117 Normal (applies to non-num anderson results) [facility] ([facility] Total Protein 8.0 GM/DL 6.4-8.2 Normal (applies to non-numeric re sults) [facility] ([facility] Bilirubin,Total 0.2 mg/dL 0.2-1.0 Normal (applies to non-numeric results) [facility] ([facility] Albumin/Globulin Ratio 0.9 Normal (applies to non-n umeric results) [facility] ([facility] Albumin 3.8 GM/DL 3.2-5.2 Normal (applies to non-numeric resul ts) [facility] ([facility] ID Date Data Source [id number] 06/28/2020 05:29:00 PM EDT [facility] ([facility] Name Value Range Interpretation Code Description Data Soumya rce(s) Supporting Document(s) Ethanol [Mass/volume] in Serum or Plasma Laboratory test result 0.000-0.010 Normal (applies to non-numeric results) [facility] ([facility] <content>note:<nlbl:demographic_changed> </content>
<content></content> Acetaminophen [Mass/volume] in Serum or Plasma Laboratory test r esult 10.0-30.0 Below low normal [facility] ([facility] ) <content>note:<nlbl:demographic_changed> </content>
<content></content> Salicylates [Mass/volume] in Serum or Plasma Laboratory test res ult 5.0-30.0 Below low normal [facility] ([facility] ) <content>note:<nlbl:demographic_changed> </content>
<content></content> ID Date Data Source [id number] 06/28/2020 05:29:00 PM EDT [facility] ([facility] Name Value Range Interpretation Code Description Data Soumya rce(s) Supporting Document(s) Barbiturates Urine Laboratory test result Normal (applies to non-numeric results) [facility] ([facility] ) Amphetamines Level Urine Laboratory test result Normal (applies to non-numeric results) [facility] ([facility] ) Benzodiazepines Urine Laboratory test result Nor mal (applies to non-numeric results) [facility] ([facility] ) Cannabinoids Urine Laboratory test result Normal (applies to non-numeric results) [facility] ([facility] ) Methadone Urine Laboratory test result Normal (a pplies to non-numeric results) [facility] ([facility] ) Cocaine Metabolite Urine Laboratory test result Normal (applies to non-numeric results) [facility] ([facility] ) Phencyclidine Urine Laboratory test result Jabier l (applies to non-numeric results) [facility] ([facility] ) ALL PRESUMPTIVE [...] Normal (applies t o non-numeric results) [facility] ([facility] ID Date Data Source [id number] 06/28/2020 05:29:00 PM EDT [facility] ([facility] Name Value Range Interpretation Code Description Data Soumya rce(s) Supporting Document(s) White Blood Count 10.7 10 4.0-10.0 Above high normal [facility] ([facility] Red Blood Count 5.36 10 4.30-6.10 Normal (applies to non-numeric results) [facility] ([facility] Hemoglobin 14.0 g/dL 13.5-17.5 Normal (applies to non-numeric resul ts) [facility] ([facility] Hematocrit 45.7 % 42.0-52.0 Normal (applies to non-numeric resul ts) [facility] ([facility] Mean Corpuscular Hemoglobin 26.1 pg 27.0-33.0 Below low normal [facility] ([facility] Mean Corpuscular Volume 85.3 fl 80.0-96.0 Normal ( applies to non-numeric results) [facility] ([facility] ) Red Cell Distribution Width 18.6 % 11.5-14.5 Above high normal [facility] ([facility] Mean Corpuscular HGB Conc 30.6 g/dL 32.0-36.5 Below low normal [facility] ([facility] Platelet Count, Automated 445 10 150-450 Normal (applies to non-numeric results) [facility] ([facility] ) Neutrophils % 67.1 % 36.0-66.0 Above high normal MEDE NT ([facility] Lymph % 19.2 % 24.0-44.0 Below low normal [facility] ( [facility] [place] % 7.9 % 2.0-8.0 Normal (applies to non-numeric resul ts) [facility] ([facility] Eos % 4.7 % 0.0-3.0 Above high normal [facility] ([facility] Baso % 0.7 % 0.0-1.0 Normal (applies to non-numeric resul ts) [facility] ([facility] Immature Granulocyte % 0.4 % 0-3.0 Normal (applies to non-n umeric results) [facility] ([facility] Nucleated Red Blood Cell % 0.0 % 0-0 Normal (applies to n on-numeric results) [facility] ([facility] Neutrophils # 7.2 10 1.5-8.5 Normal (applies to non-numeric re sults) [facility] ([facility] Lymph # 2.1 10 1.5-5.0 Normal (applies to non-numeric resul ts) [facility] ([facility] Eos # 0.5 10 0.0-0.5 Normal (applies to non-numeric resul ts) [facility] ([facility] [place] # 0.8 10 0.0-0.8 Normal (applies to non-numeric resul ts) [facility] ([facility] Baso # 0.1 10 0.0-0.2 Normal (applies to non-numeric resul ts) [facility] ([facility] ID Date Data Source [id number] 01/29/2020 12:00:00 AM EDT [facility] Name Value Range Interpretation Code Description Data Soumya rce(s) Supporting Document(s) SARS coronavirus 2 RNA [Presence] in Res piratory specimen by CUBA with probe detection [facility] This lab was ordered by Lee Dhillon and reported by [employer]. Procedure Social History Code Duration Value Status Description Data Source(s ) Smoking 01/02/2021 12:00:00 AM EDT Patient is a former smoker completed Patient is a former smoker [facility] ([facility]) Smoking 01/01/2021 12:00:00 AM EDT Former Smoker completed Former Smoker eCW ([facility]) Smoking 01/01/2021 12:00:00 AM EDT Former Smoker completed Former Smoker eCW1 ([facility]) Smoking 01/01/2021 12:00:00 AM EDT Former Smoker completed Former Smoker W ([facility]) Vital Signs ID Date Data Source UNK Name Value Range Interpretation Code Description Data Source(s) Respiratory rate 18 /min 18 /min eCW1 ([facility]) Body temperature 98 [degF] 98 [degF] eCW1 ([facility]) Systolic blood pressure 124 mm[Hg] 124 mm[Hg] e CW1 ([facility]) Diastolic blood pressure 72 mm[Hg] 72 mm[Hg] eCW1 ([facility]) Body weight 180 [lb_av] 180 [lb_av] eCW1 ([facility]) Body weight 81.65 kg 81.65 kg eCW1 ([facility]) Body height [in_i] eCW1 ([facility]) Body mass index (BMI) [Ratio] 26.58 kg/m2 26.58 kg/m2 eCW1 ([facility]) Heart rate 105 /min 105 /min eCW1 ([facility]) Systolic blood pressure 128 mm[Hg] 128 mm[Hg] [...] Body height 69 [in_i] 69 [in_i] MED[facility] ([facility] 5'9" Body weight 180.00 [lb_av] 180.00 [lb_av] MEDEN T ([facility] [place] body weight 160 [lb_av] 160 [lb_av] MEDEN [...] Body temperature 97.5 [degF] 97.5 [degF] [facility] ([facility] Heart rate 74 /min 74 /min [facility] ([facility] Respiratory rate 18 /min 18 /min [facility] ( [facility] Body height 69 [in_i] 69 [in_i] [facility] ([facility] 5'9" Body weight 178.00 [lb_av] 178.00 [lb_av] MEDEN T ([facility] [place] body weight 160 [lb_av] 160 [lb_av] MEDEN T ([facility] Body mass index (BMI) [Ratio] 26.3 kg/m2 26.3 k g/m2 [facility] ([facility] [place] body weight 160 [lb_av] 160 [lb_av] MEDEN T ([facility] Systolic blood pressure 112 mm[Hg] 112 mm[Hg] M EDENT ([facility] Diastolic blood pressure 72 mm[Hg] 72 mm[Hg] [facility] ([facility] Body temperature 97.8 [degF] 97.8 [degF] [facility] ([facility] Heart rate 72 /min 72 /min [facility] ([facility] Respiratory rate 16 /min 16 /min [facility] ( [facility] Body height 69 [in_i] 69 [in_i] MED[facility] ([facility] 5'9" Body weight 173.00 [lb_av] 173.00 [lb_av] MEDEN T ([facility] Body mass index [...] [lb_av] MEDEN T ([facility] [place] body weight 160 [lb_av] 160 [lb_av] MEDEN [...] Body height 69 [in_i] 69 [in_i] [facility] ([facility] 5'9" Systolic blood [...] [lb_av] MEDEN T ([facility] [place] body weight 160 [lb_av] 160 [lb_av] MEDEN T ([facility] Body mass index (BMI) [Ratio] 25.2 kg/m2 25.2 k g/m2 [facility] ([facility] Oxygen saturation in Arterial blood by Pulse oximetry 98 % 98 % [facility] ([facility] Body temperature 97.8 [degF] 97.8 [degF] [facility] ([facility] Body weight 166.00 [lb_av] 166.00 [lb_av] MEDEN T ([facility] Heart rate 80 /min 80 /min [facility] ([facility] Respiratory rate 18 /min 18 /min [facility] ( [facility] Body height 69 [in_i] 69 [in_i] [facility] ([facility] 5'9" Systolic blood pressure 120 mm[Hg] 120 mm[Hg] M EDENT ([facility] Diastolic blood pressure 70 mm[Hg] 70 mm[Hg] [facility] ([facility] Body mass index (BMI) [Ratio] 24.5 kg/m2 24.5 k g/m2 [facility] ([facility] Oxygen saturation in Arterial blood by Pulse oximetry 98 % 98 % [facility] ([facility] [place] body weight 160 [lb_av] 160 [lb_av] MEDEN T ([facility] Body temperature 96.8 [degF] 96.8 [degF] MED[facility] ([facility] ) Body height 70 [in_i] 70 [in_i] MED[facility] ([facility] ) 5'10" Body weight 180.50 [lb_av] 180.50 [lb_av] MEDEN T ([facility] ) Body mass index (BMI) [Ratio] 25.9 kg/m2 25.9 k g/m2 [facility] ([facility] )
--- OUTSIDE RECORDS SUMMARY | 2021-01-24 11:49 | CCD ---
Author Author [facility] Organization [facility] Address Unknown Phone Unavailable Care Team Providers Care Needle Bar Molder Name Role Phone Maring, Moise PA Unavailable [...] Familia RAMOS Unavailable Unavailable Fish, B Familia ARMOS Unavailable Unavailable Fish, B Familia RAMOS Unavailable [...] PEDERSEN, G EDWARD RPA Unavailable Unavailable NEENA, Duglas COTTO MD Unavailable Unavailable NEENA, Duglas COTTO MD Unavailable Unavailable NEENA, Duglas COTTO MD Unavailable Unavailable NEENA, Duglas COTTO MD Unavailable Unavailable NEENA, Duglas COTTO MD Unavailable Unavailable NEENA, Duglas COTTO MD Unavailable Unavailable NEENA, Duglas COTTO MD Unavailable Unavailable NEENA, Duglas COTTO MD Unavailable Unavailable NEENA, B KIRTI RAMOS Unavailable Unavailable NEENA, B KIRTI RAMOS Unavailable [...] Duglas COTTO MD Unavailable Unavailable NEENA, Duglas COTOT MD Unavailable Unavailable NEENA, Duglas COTTO MD [...] NEENA, Duglas COTTO MD Unavailable Unavailable NEENA, Duglsa COTTO MD Unavailable Unavailable NEENA, Duglas COTTO [...] Unavailable NEENA, Duglas COTTO MD Unavailable Unavailable Blade Hebert PA Unavailable Unavailable Blade Hebert PA Unavailable Unavailable AnupBlade brooks PA Unavailable Unavailable AnupBlade brooks PA Unavailable Unavailable AnupBlade PA Unavailable Unavailable Anup, D Saul PA [...] D Saul PA Unavailable Unavailable Anup, D Salu PA Unavailable Unavailable Anup, D Saul PA [...] Unavailable Alvino Cordero MD Unavailable Unavailable Alvino Crodero MD Unavailable Unavailable Alvino Cordero MD Unavailable [...] is protected by Article 27-F of the [facility] Public Health law. If you continue you may have access to information: Regarding HIV / AIDS; Provided by facilities licensed or operated by the [facility] Office of Mental Health; or Provided by the [facility] Office for People With Developmental Disabilities. If such information is present, then the following [facility] mandated warning applies: This information has [...] law may result in a fine or nursing home sentence or both. A general authorization for the release of medical or other information is NOT sufficient authorization for further disc losure. Allergies and Adverse Reactions Type Description Substance Reaction Status Data Source(s ) Animal Allergy BEE STING BEE STING [facility] Family History Family Member Name Family Member Gender Family Member Status Date o f Status Description Data Source(s) Unknown Unknown Problem [facility] ([facility]) Unknown Male Problem MEDENT ([facility]) Unknown Male Problem MED[facility] ([facility] Encounters Encounter Providers Location Date Indications Data Source(s ) Outpatient Attender: Moise MCKEON 01/24/20 12:27:38 PM EDT - 01/23/2021 01:41:32 PM EDT [facility] ([facility] ) Outpatient Att[facility]: [facility]ES [facility] STAFF NON 01/16/2021 10:32:00 AM EDT - 01/16/2021 10:32:00 AM EDT [facility] [place] [address] [facility] [address] 01/16/2021 12:00:00 AM EDT eCW1 ([facility]) [place] [address] [address] 01/12/2021 12:00:00 AM EDT eCW1 ([facility]) Outpatient Attender: DEMETRI FLORES DPMConsultant: STAFF NON 01/02/2021 08:51:00 AM EDT - 01/02/2021 08:51:00 AM EDT [facility] Out[place] [address] [facility] [address] 01/01/2021 12:00:00 AM EDT eCW1 ([facility]) Outpatient Attender: DEMETRI FLORES DPMConsultant: STAFF NON 12/18/2020 10:26:00 AM EDT - 12/18/2020 10:26:00 AM EDT [facility] Outpatient Attender: DEMETRI FLORES DPMConsultant: STAFF NON 12/13/2020 09:36:00 AM EDT - 12/13/2020 09:36:00 AM EDT [facility] Discharge cancelled. Disregard status an d discharged date. [facility] 09:[facility]:0 0 AM EDT [facility] ([facility] Outpatient Attender: [facility] 12/07/2020 11:00:0 0 AM EDT [facility] ([facility] Emergency Attender: JABIER MATOS MDConsultant: STAFF NON 10/19/2020 10:29:00 PM EDT - 10/20/2020 02:41:00 AM EDT [facility] Patient discharged. Outpatient Attender: MARTIN PEDERSEN RPA 10/13 05:29:24 PM EDT - 10/13/2020 07:43:19 PM EDT [facility] ([facility] ) Outpatient Attender: KIRTI CHAUDAHRY MDReferrer: Familia Coughlin MD [id number] 10/05/2020 12:00:00 AM EDT - 10/17/2020 10:34:01 AM EDT [facility] Outpatient Referrer: KIRTI CHAUDHARY MD 10/05/2020 12:00: 00 AM EDT Unspecified injury of right wrist, hand and finger(s), initial encounter [facility] Unspecified injury of right wrist, hand and finger(s), initial encounter Outpatient Attender: Reuben Coughlin [place] [facility] 09/14/2020 02:45:0 0 PM EDT MED[facility] ([facility] Outpatient Attender: Saul MCKEON [place] [facility] 02:20:00 PM EDT [facility] Outpatient Attender: Ifeoma MCKEON 021 07:02:07 PM EDT - 08/27/2020 07:25:31 PM EDT [facility] ([facility] ) Outpatient Attender: MARTIN PEDERSEN RPA 08/05 02:43:33 PM EDT - 08/05/2020 04:47:30 PM EDT [facility] ([facility] ) Outpatient Attender: Gris Cordero MD 0 06/27/2020 07:12:21 PM EDT - 06/27/2020 07:33:08 PM EDT [facility] ([facility]) Outpatient Attender: Reuben Coughlin [place] [facility] 06/07/2020 12:15:0 0 PM EST MED[facility] ([facility] Outpatient Attender: KIRTI CHAUDHARY MDReferrer: Familia Coughlin MD 03/16/2020 12:00:00 AM [facility] Outpatient Attender: Familia Coughlin MD Physical Therapy 01/18/2020 1 0:45:00 AM EDT [facility] ([facility] Outpatient Attender: Reuben CoughlinConsultant: STAFF NON 10/04/2019 04:27:00 PM EDT - 12/16/2019 10:35:00 AM EDT [facility] Patient discharged. Immunizations Vaccine Date Status [...] A DAY FOR 10 DAYS SOLD: 10/15/2020 [facility] 2.5 % 08/30/2020 12:00:00 AM EDT ointment 28 APPLY TO AFFECTED AREA(S) TWO TIMES A DAY APPLY TO AFFECTED AREA(S) TWO TIMES A DAY SOLD: 08/30/2020 [facility] doxycycline hyclate 100 MG Oral Capsule DOXYCYCLINE HYCLATE 08/28/2020 12:00:00 AM EDT capsule 14 TAKE ONE CAPSULE BY MOUTH TW ICE A DAY FOR 7 DAYS TAKE ONE CAPSULE BY MOUTH TWICE A DAY FOR 7 DAYS SOLD: 08/30/2020 [facility] Minocycline 50 MG Oral Capsule Minocycline HCL 06/07/2020 12:00:00 AM EST ORAL completed MED[facility] ([facility] 0.1 % 04/20/2020 12:00:00 AM EST cream 30 APPLY TOPICALLY TO AFFECTED AREA(S) TWO TIMES A DAY APPLY TOPICALLY TO AFFECTED AREA(S) TWO TIMES A DAY SOLD: 04/28/2020 [facility] 30 mg 02/13/2020 12:00:00 AM EST tablet 40 TAKE ONE TABLET BY MOUTH FOUR TIMES A DAY NEEDED TAKE ONE TABLET BY MOUTH FOUR TIMES A DAY NEEDED SO LD: 02/13/2020 [facility] doxycycline hyclate 100 MG Oral Capsule DOXYCYCLINE HYCLATE 02/13/2020 12:00:00 AM EST capsule 20 TAKE ONE CAPSULE BY MOUTH TW ICE A DAY FOR 10 DAYS TAKE ONE CAPSULE BY MOUTH TWICE A DAY FOR 10 DAYS SOLD: 02/13/2020 [facility] 4 % 02/13/2020 12:00:00 AM EST liquid 118 DIRECTED TO CLEANSE AFFECTED AREA WHEN BATHING DIRECTED TO CLEANSE AFFECTED AREA WHEN BATHING SOLD : 02/13/2020 [facility] Azelastine hydrochloride 0.206 MG/ACTUAT Metered Dose Nasal [place] 0.15 % (205.5 mcg) AZELASTINE HCL 01/29/2020 [...] DO NOT TAKE WITH KETOROLAC SOLD: 01/29/2020 [facility] 50 mcg/actuation 01/29/2020 12:00:00 AM EDT spray,suspension 16 SPRAY TWO SPRAYS IN EACH NOSTRIL EVERY DAY SPRAY TWO SPRAYS IN EACH NOSTRIL EVERY DAY SOLD: 01/29/2020 [facility] Insurance Providers Payer name Policy type / Coverage type Policy ID Covered green party ID Covered green party's relationship to snow Policy Snow Plan Information [employer] [id number] Family Dependent [id number] [employer] [id number] Family Dependent [id number] [employer] [id number] Family Dependent [id number] [employer] [id number] Family Dependent [id number] [employer] [id number] Family Dependent [id number] [facility] Part B [id number] Self Z [id number] [place] 302/307 [id number] FA2 [id number] [place] 302/307 [id number] FA2 [id number] [place] 302/307 [id number] FA2 [id number] BS [place] [employer] [id number] Family Dependent V [id number] BS [employer] [employer] [id number] Family Dependent V [id number] BS [employer] [employer] [id number] Family Dependent V [id number] BS [employer] [employer] [id number] Family Dependent V [id number] [employer] H [id number] Child [id number] WORKERS COMPENSATION GENERIC W [id number] Empl [id number] WORKERS COMPENSATION GENERIC W [id number] Empl [id number] [employer] [id number] Self [id number] [employer] [id number] Self [id number] Needs Workers Comp Information WorkComp Health Claim [id number] Self [id number] [place]eds [place] Work[place] Health [place] [id number] Self [id number] [employer] BCBS P [id number] C VYS [id number] OTHER W.C.EMPLOYER [id number] SP [id number] [place] [id number] SP [id number] B [facility] [place] [id number] MEDICAID -PHYSICIAN [id number] 1 [id number] MEDICAID [facility] [id number] 18 [id number] [place] [id number] SP [id number] PRIVATE PAY PAT SWARTZ R 18 [address] [facility] [facility] [place] [id number] S [id number] [place] [phone] SP [id number] SELF PAY ONLY [id number] SP [id number] BLUE CROSS BLUE SHIELD -O/P [id number] Self Pay P UNAVAILABLE S UNAVAILA BLE BCBS Commercial VYA [id number] VYA [id number] [employer] BCBS B [id number] D [id number] EX[employer] BCBS B [id number] D [id number] BCBS Commercial VYA [id number] Self VYA [id number] BCBS Commercial VYA [id number] Self VYA [id number] [facility] 304/804 [id number] FA2 [id number] BCBS [facility] 280/780 [id number] FA2 [id number] [place] 450/950 [id number] Problems, Conditions, and Diagnoses Code Display Name Description Problem Type Effective Dates Data Source(s) B070 Plantar wart Plantar wart Diagnosis 01/02/2021 08:51:00 A M EDT [facility] Y[address] or not applicable Unspecified place or not applicable Diagnosis [id number] Exposure to other specified factors, ini tial encounter Exposure to other specified factors, initial encounter Diagnosis 10/19/2020 10:29:00 PM [facility] Z23 Encounter for immunization Encounter for immunization Diagnosis 10/19/2020 10:29:00 PM [facility] W00575 Nicotine dependence, cigarettes, uncompl icated Nicotine dependence, cigarettes, uncomplicated Diagnosis 10/19/2020 10:29:[address] [facility] [id number] Abrasion of penis, initial encounter Abr asion of penis, initial encounter Diagnosis 10/19/2020 10:29:00 PM EDT [facility] L989 Disorder of the skin and subcutaneous ti ssue, unspecified Disorder of the skin and subcutaneous tissue, unspecified Diagnosis 10/19/2020 10:29:0 0 PM EDT [facility] S69.91XA Unspecified injury of right wrist, hand and finger(s), initial encounter Unspecified injury of right wrist, hand and finger(s), initial encounter Diagnosis 10/05/2020 02:59:45 PM EDT [facility] R99 Ill-defined and unknown cause of mortali ty Ill-defined and unknown cause of mortality Diagnosis 12/16/2019 10:35:00 AM EDT [facility] [id number] Vaccine refused by patient Vaccine refused by patient Problem 11/30/2020 12:00:00 AM EDT MED[facility] ([facility] ) Note: COVID and FLU -may think about g etting it Surgeries/Procedures Procedure Description Date Indications Data Source(s) Destruction Benign Lesions Other Than Skin Tags Or Cutan Vas cular 01/16/2021 12:00:00 AM EDT [facility] ([facility]) Destruction Benign Lesions Other Than Skin Tags Or Cutan Vas cular 01/02/2021 12:00:00 AM EDT MED[facility] ([facility]) Destruction Benign Lesions Other Than Skin Tags Or Cutan Vas cular 12/18/2020 12:00:00 AM EDT MEDENT ([facility]) OFFICE OUTPATIENT NEW 20 MINUTES 12/18/2020 12:00:00 A M EDT MEDENT ([facility]) OFFICE OUTPATIENT VISIT 15 MINUTES 12/13/2020 12:00:00 AM EDT MED[facility] ([facility] Paring Benign Hyperkeratoric Single Salt Flat Or Callus 12/07/2020 12:00:00 AM EDT MED[facility] ([facility] ) OFFICE OUTPATIENT VISIT 15 MINUTES 12/07/2020 12:00:00 AM EDT [facility] ([facility] Paring Benign Hyperkeratoric Single Salt Flat Or Callus 11/30/2020 12:00:00 AM EDT MEDENT [...] 3 VIEWS 12/14/2019 12:00:00 AM EDT MEDENT ([facility]) RADEX HAND MINIMUM 3 VIEWS 11/26/2019 12:00:00 AM EDT MED[facility] ([facility]) Results ID Date Data Source HEPATITIS C QUANT BY PCR 01/01/2021 12:00:00 AM EDT eCW1 ([facility]) Name Value Range Interpretation Code Description Data Soumya rce(s) Supporting Document(s) 5.155 . Hepatitis C log10 eCW1 ([facility]) [id number] . HEPATITIS C QUANTITATION eCW1 ([facility]) ID Date Data Source HEPATITIS C FIBROSURE [id number] 01/01/2021 12:00:00 AM EDT eC W1 ([facility]) Name Value Range Interpretation Code Description Data Soumya rce(s) Supporting Document(s) . FIBROSIS STAGE eCW1 ([facility]) 0.04 0.00-0.21 FIBROSIS SCORE eCW1 ([facility]) 0.12 0.00-0.17 NECROINFLAM SCORE eCW1 ([facility]) A0-No activity . NECROINFLAMM GRADE eCW1 ( [facility]) 154 101-178 APOLIPOPROTEIN A-1 eCW1 ([facility]) 0.3 0.0-1.2 TOTAL BILIRUBIN eCW1 ([facility]) 144 110-276 ALPHA 2-MACROGLOBULIN eCW1 ([facility]) 189 17-317 HAPTOGLOBIN eCW1 ([facility]) 33 0-55 ALT eCW1 ([facility]) 33 0-65 GGT eCW1 ([facility]) . INTERPRETATION eCW1 ([facility]) . LIMITATIONS eCW1 ([facility]) . NECROINFLAM SCORING eCW1 ([facility]) . COMMENT : eCW1 ([facility]) . FIBROSIS SCORING eCW1 ([facility]) ID Date Data Source [id number] 10/19/2020 10:29:00 PM EDT [facility] 1 OrderSheet [facility] Emergency Department [address] [place] [address] Phone #: [phone]- [phone] 10/19/2020 22:29 Patient: MAXIME CHRISTIAN Sex: M : 1995 Age: 25yWEIGHT:81.6 kg (S) HEIGHT:71 inches (S) BMI:25.1ALLERGIES: No Known Drug AllergyCHIEF COMPLAINT: skin lesionDIAGNOSIS: AbrasionLAB ORDERSOrder Description Priority Entered Acknowledged InitialedChlamydia/GC STAT 23:07 10/19/2020 23:13 Shawna Ashley Norma MD; Chester R.NYasmineHIV Panel STAT 01:37 10/20/2020 Cancelled: Patient Refusal 02:12 Shawna Maloney Norma MD; Haylie R.N.DIAGNOSTIC STUDY ORDERSOrder Description Priority Entered Acknowledged InitialedMEDICATION/IV/DRIP/FLUID ORDERSOrder Description Priority Entered Acknowledged InitialedTdap IM 0.5 mL 01:37 10/20/2020 01:38 Shawna Maloney Norma MD; Haylie R.N.GENERAL ORDERSOrder Description Priority Entered Acknowledged Initialed[Electronically signed by Jabier Matos MD (01:44 10/20/2020)][Electronically signed by Haylie Maloney R.N. (02:41 10/20/2020)][Electronically locked by Haylie Maloney R.N. (02:41 10/20/2020)] Name Value Range Interpretation Code Description Data [facility](s) Supporting Document(s) ID Date Data Source [id number] 10/19/2020 10:29:00 PM EDT [facility] 1 Medication Reconciliation Report [facility] Emergency Department [address] [place] [address] Phone #: ext- [phone] 10/19/2020 22:29 Patient: [...] rce(s) Supporting Document(s) ID Date Data Source [id number] 10/19/2020 10:29:00 PM EDT [facility] 1 Medication Administration Record [facility] Emergency Department [address] [place] [address] Phone #: ext [phone] 10/19/2020 22:29 Patient: MAXIME CHRISTIAN Sex: Mode : 1995 Age: 25yWeight: 81.6 kgHeight/Length: 71 inBMI: 25.1ALLERGIES: No Known Drug Allergy Date/Time Medication Administered Medication OrderedGiven TDAP [IM] Tdap IM 0.5 mL01:38 10/20/2020 Dose: 0.5 mL Haylie Mccurdy R.N. Name Value Range Interpretation Code Description Data Soumya rce(s) Supporting Document(s) ID Date Data Source [id number] 10/19/2020 10:29:00 PM EDT [facility] 1 General Instructions [facility] Emergency Department [address] [place] [address] Phone #: ext- [phone] 10/19/2020 22:29 Patient: [...] by your healthcare provider: 2 General Instructions [facility] Emergency Department [address] [place] [address] Phone #: ext- [phone] 10/19/2020 22:29 Patient: [...] any body part near the wound [employer]. [address] [place] [address] 10289. All rights reserved. This information is not intended as asubstitute for professional med [facility] care. Always follow your healthcare professional's instructions. You have been given the following additional information: Abrasions 3 General Instructions [facility] Emergency Department [address] [place] [address] Phone #: ext- [phone] 10/19/2020 22:29 Patient: MAXIME CHRISTIAN Sex: M : 1995 Age: 25y(Electronically signed by Jabier Matos MD 10/20/2020 01:44) Name Value Range Interpretation Code Description Data Soumya rce(s) Supporting Document(s) ID Date Data Source [id number] 10/19/2020 10:29:00 PM EDT [facility] 1 Clinical Report - Nurses [facility] Emergency Department [address] [place] [address] Phone #: ext- [phone] 10/19/2020 22:29 Patient: MAXIME CHRISTIAN Sex: M : 1995 Age: 25yTRIAGEArrived by private vehicle. Historian: patient.Acuity: LEVEL 4.Chief Complaint: STD EXPOSURE and DYSURIA (FB in L heel).Alert. No acute distress.Onset. (1 weeks). ( Pt reports stepping on a piece of glass 1 week ago [facility] [place] [facility] also [place] him antibiotics. He also reports having a scabon the tip of his penis and pain with urination. He has had unprotected sex in August with someone who mayhave HIV. 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 2 Clinical Report - Nurses [facility] Emergency Department [address] [place] [address] Phone #: ext- [phone] 10/19/2020 22:29 Patient: MAXIME CHRISTIAN Sex: M [...] integrity risk identified. --22:54 10/19/20 Haylie Maloney R.N. Interventions Identification band on patient. To treatment room. No allergy band on patient. --22:54 10/19/20 Haylie Maloney R.N.PHYSICAL GZEVSPPLOQ14:57 10/19/20. Ambulatory to room.GENERAL / NEURO / [...] PROGRESS NOTES 3 Clinical Report - Nurses [facility] Emergency Department [address] [place] [address] Phone #: ext- [phone] 10/19/2020 22:29 Patient: MAXIME CHRISTIAN Sex: M : 1995 Age: 25y 22:57 10/19/20. Reassurance given. Two patient identifiers checked. Call light placed in reach. Side rails up x 2. Bed placed in lowest position. Brakes of bed on. Patient ready for evaluation- ED physician notified. --22:57 10/19/20 Chester Ashley R.N. 01:38 10/20/2020 TDAP IM 0.5 mL given(Lot#: [id number], expiration date: 04/19/2022, Spikem[employer] Supervisor: Swype). Given in the right deltoid. Allergies verified and confirmed 5 rights. Information reviewed with patient including reason for taking this medication. Verbalizes understanding. --01:38 10/20/20 Haylie Maloney R.N.DISPOSITION / DISCHARGE Condition at departure: improved and stable. No learning barriers present. Discharge instructions provided and reviewed with the patient. Patient verbalized understanding. Written instruction s provided in Nauruan. The patient was discharged by the physician. [...] rce(s) Supporting Document(s) ID Date Data Source [id number] 10/19/2020 10:29:00 PM EDT [facility] 1 Clinical Report - Physicians/Mid Levels [facility] Emergency Department [address] [place] [address] Phone #: ext- [phone] 10/19/2020 22:29 Patient: [...] ago and tried having it removed at [facility] [place] unsuccessfully. They also prescribed him antibiotics. He [...] Drug Allergy.SOCIAL HISTORY 2 Clinical Report - Physicians/[facility] Emergency Department [address] [place] [address] Phone #: ext- [phone] 10/19/2020 22:29 Patient: MAXIME CHRISTIAN Sex: M : 1995 Age: 25y No drug use.ADDITIONAL NOTESThe nursing notes have been reviewed.PHYSICAL EXAMVital Signs: 10/19/2020 22:44 BP: 111/68. MAP: 82. HR: 86. RR: 18. O2 saturation: 100%. Temp: 99.8 F.Pain level now: 01/14. Have been reviewed and appear to be [...] heel. 3 Clinical Report - Physicians/Mid Levels [facility] Emergency Department [address] [place] [address] Phone #: ext- [phone] 10/19/2020 22:29 Patient: MAXIME CHRISTIAN Sex: M [...] rce(s) Supporting Document(s) ID Date Data Source [id number] 10/22/2020 09:10:00 PM EDT [facility] Name Value Range Interpretation Code Description Data Soumya rce(s) Supporting Document(s) Chlamydia trachomatis rRNA [Presence] in Unspecified specimen by Probe and target amplification method Negative Negative [facility] Neisseria gonorrhoeae rRNA [Presence] in Unspecified specimen by Probe and target amplification method Negative Negative [facility] ID Date Data Source [id number] 10/09/2020 02:21:54 PM EDT [facility] Name Value Range Interpretation Code Description Data Soumya rce(s) Supporting Document(s) Progress Note [facility] [id number] [facility] [file] [id number] ID Date Data Source [id number] 10/07/2020 11:39:58 AM EDT [facility] XR HAND 3 OR MORE VIEWS [id number] RESUL TInterpreted by:DOREEN Bennettlinical history: Right hand [...] rce(s) Supporting Document(s) ID Date Data Source [id number] 10/05/2020 04:36:56 PM EDT [facility] Name Value Range Interpretation Code Description Data Soumya rce(s) Supporting Document(s) Progress Note [facility] [id number] lbm [file] [id number]== ID Date Data Source [id number] 06/28/2020 05:29:00 PM EDT [facility]ENT ([facility] Name Value Range Interpretation Code Description Data Soumya rce(s) Supporting Document(s) Hepatitis C virus Ab [Units/volume] in Serum by Immuno assay Laboratory test result Above high normal MED[facility] ([facility] <content>This screening test for Hepatit is C Virus was above the 1.0</content>
<content>cutoff index value and will be sent to reference lab</content>
<content>Laboratory [facility] [place], [address] [place],</content>
<content>[place] [address] for Hep C RNA CUBA testing to [...] group O) & HIV-2 using the [employer] XP</content>
<content>system.</content>
<content>The estimated 95% confidence interval [...] test result Abnormal (applies to non-numeric results) [facility] ([facility] ) Positive: HCV RNA Detected Performed at: [address] [id number] Manual Winder: Miriam Louis MD, Phone: [phone] ID Date Data Source [id number] 06/28/2020 05:29:00 PM EDT [facility] ([facility] Name Value Range Interpretation Code Description Data Soumya rce(s) Supporting Document(s) Blood Urea Nitrogen 13 mg/dL 7-18 Normal (applies to non-nume caitlin results) [facility] ([facility] Glucose, Fasting 82 mg/dL 70-100 Normal (applies to non-numeric results) [facility] ([facility] Creatinine For GFR 0.78 mg/dL 0.70-1.30 Normal (applies to non -numeric results) [facility] ([facility] Glomerular Filtration Rate Laboratory test result Normal (applies to non- numeric results) [facility] ([facility] ) <content>Units are mL/min/1.73 m2</content>
<content></content>
<content>Chronic Kidney Disease Staging per NK[facility]:</content>
<content></content>
<content>Stage I & II GFR >=60 Normal to Mildly Decreased</content>
<content>Stage III GFR 30- 59 Moderately Decreased</content>
<content>Stage IV GFR 15-29 Severely Decreased</content>
<content>Stage V GFR <15 Very Little GFR Left</content>
<content>ESRD GFR <15 on INGOT PASSER</content>
<content></content> Sodium Level 139 meq/L 136-145 Normal (applies to non-numeric res ults) [facility] ([facility] Potassium Serum 4.5 meq/L 3.5-5.1 Normal (applies to non-numeric results) [facility] ([facility] Chloride Level 102 meq/L 98-107 Normal (applies to non-numeric r esults) [facility] ([facility] Carbon Dioxide Level 31 mmol/L 20-29 Above high normal [facility] ([facility] Calcium Level 9.5 mg/dL 8.5-10.1 Normal (applies to non-numeric re sults) [facility] ([facility] Anion Gap 6 meq/L 8-16 Below low normal [facility] ( [facility] Alt/SGPT 39 IU/L 0-32 Above high normal [facility] ([facility] Ast/Sgot 36 IU/L Normal (applies to non-numeric resul ts) [facility] ([facility] Alkaline Phosphatase 115 U/L 45-117 Normal (applies to non-num anderson results) [facility] ([facility] Total Protein 8.0 GM/DL 6.4-8.2 Normal (applies to non-numeric re sults) [facility] ([facility] Bilirubin,Total 0.2 mg/dL 0.2-1.0 Normal (applies to non-numeric results) [facility] ([facility] Albumin/Globulin Ratio 0.9 Normal (applies to non-n umeric results) [facility] ([facility] Albumin 3.8 GM/DL 3.2-5.2 Normal (applies to non-numeric resul ts) [facility] ([facility] ID Date Data Source [id number] 06/28/2020 05:29:00 PM EDT [facility] ([facility] Name Value Range Interpretation Code Description Data Soumya rce(s) Supporting Document(s) Ethanol [Mass/volume] in Serum or Plasma Laboratory test result 0.000-0.010 Normal (applies to non-numeric results) [facility] ([facility] <content>note:<nlbl:demographic_changed> </content>
<content></content> Acetaminophen [Mass/volume] in Serum or Plasma Laboratory test r esult 10.0-30.0 Below low normal [facility] ([facility] ) <content>note:<nlbl:demographic_changed> </content>
<content></content> Salicylates [Mass/volume] in Serum or Plasma Laboratory test res ult 5.0-30.0 Below low normal [facility] ([facility] ) <content>note:<nlbl:demographic_changed> </content>
<content></content> ID Date Data Source [id number] 06/28/2020 05:29:00 PM EDT [facility] ([facility] Name Value Range Interpretation Code Description Data Soumya rce(s) Supporting Document(s) Barbiturates Urine Laboratory test result Normal (applies to non-numeric results) [facility] ([facility] ) Amphetamines Level Urine Laboratory test result Normal (applies to non-numeric results) [facility] ([facility] ) Benzodiazepines Urine Laboratory test result Nor mal (applies to non-numeric results) [facility] ([facility] ) Cannabinoids Urine Laboratory test result Normal (applies to non-numeric results) [facility] ([facility] ) Methadone Urine Laboratory test result Normal (a pplies to non-numeric results) [facility] ([facility] ) Cocaine Metabolite Urine Laboratory test result Normal (applies to non-numeric results) [facility] ([facility] ) Phencyclidine Urine Laboratory test result Jabier l (applies to non-numeric results) [facility] ([facility] ) ALL PRESUMPTIVE POSITIVE FINDINGS [...] Normal (applies t o non-numeric results) [facility] ([facility] ID Date Data Source [id number] 06/28/2020 05:29:00 PM EDT [facility] ([facility] Name Value Range Interpretation Code Description Data Soumya rce(s) Supporting Document(s) White Blood Count 10.7 10 4.0-10.0 Above high normal [facility] ([facility] Red Blood Count 5.36 10 4.30-6.10 Normal (applies to non-numeric results) [facility] ([facility] Hemoglobin 14.0 g/dL 13.5-17.5 Normal (applies to non-numeric resul ts) [facility] ([facility] Hematocrit 45.7 % 42.0-52.0 Normal (applies to non-numeric resul ts) [facility] ([facility] Mean Corpuscular Hemoglobin 26.1 pg 27.0-33.0 Below low normal [facility] ([facility] Mean Corpuscular Volume 85.3 fl 80.0-96.0 Normal ( applies to non-numeric results) [facility] ([facility] ) Red Cell Distribution Width 18.6 % 11.5-14.5 Above high normal [facility] ([facility] Mean Corpuscular HGB Conc 30.6 g/dL 32.0-36.5 Below low normal [facility] ([facility] Platelet Count, Automated 445 10 150-450 Normal (applies to non-numeric results) [facility] ([facility] ) Neutrophils % 67.1 % 36.0-66.0 Above high normal MEDE NT ([facility] Lymph % 19.2 % 24.0-44.0 Below low normal [facility] ( [facility] [place] % 7.9 % 2.0-8.0 Normal (applies to non-numeric resul ts) [facility] ([facility] Eos % 4.7 % 0.0-3.0 Above high normal [facility] ([facility] Baso % 0.7 % 0.0-1.0 Normal (applies to non-numeric resul ts) [facility] ([facility] Immature Granulocyte % 0.4 % 0-3.0 Normal (applies to non-n umeric results) [facility] ([facility] Nucleated Red Blood Cell % 0.0 % 0-0 Normal (applies to n on-numeric results) [facility] ([facility] Neutrophils # 7.2 10 1.5-8.5 Normal (applies to non-numeric re sults) [facility] ([facility] Lymph # 2.1 10 1.5-5.0 Normal (applies to non-numeric resul ts) [facility] ([facility] Eos # 0.5 10 0.0-0.5 Normal (applies to non-numeric resul ts) [facility] ([facility] [place] # 0.8 10 0.0-0.8 Normal (applies to non-numeric resul ts) [facility] ([facility] Baso # 0.1 10 0.0-0.2 Normal (applies to non-numeric resul ts) [facility] ([facility] ID Date Data Source [id number] 01/29/2020 12:00:00 AM EDT [facility] Name Value Range Interpretation Code Description Data Soumya rce(s) Supporting Document(s) SARS coronavirus 2 RNA [Presence] in Res piratory specimen by CUBA with probe detection [facility] This lab was ordered by Lee Dhillon and reported by [facility]. Procedure Social History Code Duration Value Status Description Data Source(s ) Smoking 01/02/2021 12:00:00 AM EDT Patient is a former smoker completed Patient is a former smoker [facility] ([facility]) Smoking 01/01/2021 12:00:00 AM EDT Former Smoker completed Former Smoker eCW1 ([facility]) Smoking 01/01/2021 12:00:00 AM EDT Former Smoker completed Former Smoker eCW1 ([facility]) Smoking 01/01/2021 12:00:00 AM EDT Former Smoker completed Former Smoker eCW1 ([facility]) Vital Signs ID Date Data Source UNK Name Value Range Interpretation Code Description Data Source(s) Respiratory rate 18 /min 18 /min eCW1 ([facility]) Body temperature 98 [degF] 98 [degF] eCW1 ([facility]) Systolic blood pressure 124 mm[Hg] 124 mm[Hg] e CW1 ([facility]) Diastolic blood pressure 72 mm[Hg] 72 mm[Hg] eCW1 ([facility]) Body weight 180 [lb_av] 180 [lb_av] eCW1 ([facility]) Body weight 81.65 kg 81.65 kg [facility] Body height [in_i] [facility] Body mass index (BMI) [Ratio] 26.58 kg/m2 26.58 kg/m2 eCW1 ([facility]) Heart rate 105 /min 105 /min eCW1 ([facility]) Systolic blood pressure 128 mm[Hg] [...] Body height 69 [in_i] 69 [in_i] [facility] ([facility] 5'9" Body weight 180.00 [lb_av] 180.00 [lb_av] MEDEN T ([facility] Mcleod body weight 160 [lb_av] 160 [lb_av] MEDEN [...] [facility] ([facility] Heart rate 74 /min 74 /min [facility] ([facility] Respiratory rate 18 /min 18 /min [facility] ( [facility] Body height 69 [in_i] 69 [in_i] [facility] ([facility] 5'9" Body weight 178.00 [lb_av] 178.00 [lb_av] MED[facility] T ([facility] Mcleod body weight 160 [lb_av] 160 [lb_av] [facility] T ([facility] Body mass index (BMI) [Ratio] 26.3 kg/m2 26.3 k g/m2 [facility] ([facility] [place]od body weight 160 [lb_av] 160 [lb_av] [facility] T ([facility] Systolic blood pressure 112 mm[Hg] 112 mm[Hg] M EDENT ([facility] Diastolic blood pressure 72 mm[Hg] 72 mm[Hg] [facility] ([facility] Body temperature 97.8 [degF] 97.8 [degF] [facility] ([facility] Heart rate 72 /min 72 /min [facility] ([facility] Respiratory rate 16 /min 16 /min [facility] ( [facility] Body height 69 [in_i] 69 [in_i] [facility] ([facility] 5'9" Body weight 173.00 [lb_av] 173.00 [lb_av] MED[facility] T ([facility] [...] Body height 69 [in_i] 69 [in_i] [facility] ([facility] 5'9" Body weight 172.00 [lb_av] 172.00 [lb_av] MED[facility] T ([facility] [place]od body weight 160 [lb_av] 160 [lb_av] MEDEN [...] Body height 69 [in_i] 69 [in_i] [facility] ([facility] 5'9" Systolic blood pressure [...] [lb_av] MED[facility] T ([facility] Mcleod body weight 160 [lb_av] 160 [lb_av] MEDEN T ([facility] Body mass index (BMI) [Ratio] 25.2 kg/m2 25.2 k g/m2 [facility] ([facility] Oxygen saturation in Arterial blood by Pulse oximetry 98 % 98 % [facility] ([facility] Body temperature 97.8 [degF] 97.8 [degF] [facility] ([facility] Heart rate 80 /min 80 /min [facility] ([facility] Respiratory rate 18 /min 18 /min [facility] ( [facility] Body height 69 [in_i] 69 [in_i] [facility] ([facility] 5'9" Body weight 166.00 [lb_av] 166.00 [lb_av] MED[facility] T ([facility] Mcleod body weight 160 [lb_av] 160 [lb_av] [facility] T ([facility] Systolic blood pressure 120 mm[Hg] 120 mm[Hg] M EDENT ([facility] Diastolic blood pressure 70 mm[Hg] 70 mm[Hg] [facility] ([facility] Body mass index (BMI) [Ratio] 24.5 kg/m2 24.5 k g/m2 [facility] ([facility] Oxygen saturation in Arterial blood by Pulse oximetry 98 % 98 % [facility] ([facility] Body temperature 96.8 [degF] 96.8 [degF] [facility] ([facility]) Body height 70 [in_i] 70 [in_i] [facility] ([facility]) 5'10" Body weight 180.50 [lb_av] 180.50 [lb_av] MEDEN T ([facility]) Body mass index (BMI) [Ratio] 25.9 kg/m2 25.9 k g/m2 [facility] ([facility])
[2021-01-24] MEDS ORDERED: FLUORESCEIN OPHTH 1 MG STRIP OU ONE (13:40)
[2021-01-24] MEDS ORDERED: TETRACAINE 0.5% OPHTH SOLN 4ML As Ordered ONE (13:52)
[2021-01-24] MEDS ORDERED: TETRACAINE 0.5% OPHTH SOLN 4ML OU ONE (13:55)
[2021-01-24] MEDS ORDERED: SOFO1TAB PO (14:46)
[2021-01-24 14:52] VITALS: BP 130/67
== END 2021-01-24 15:12 | disposition home or self-care (01) ==
LOC: M ED 10:30
DX: H10.213 Acute toxic conjunctivitis, bilateral (principal); T65.891A Toxic effect of other specified substances, accidental (unintentional), initial encounter; Y92.9 Unspecified place or not applicable; Y93.9 Activity, unspecified; Y99.0 Civilian activity done for income or pay; Z87.891 Personal history of nicotine dependence; Z91.010 Allergy to peanuts; Z91.013 Allergy to seafood

== ENCOUNTER 2021-03-24 09:57 | Emergency (ER) | payer MEDICAID, OTHER ==
[~2021-03-24] VITALS: Ht 180.3 cm; Wt 84.5 kg
[~2021-03-24 09:57] MED LIST changes: +SOFO1TAB PO
[2021-03-24] MEDS ORDERED: EPIN0.3I11 (10:08)
[2021-03-24] MEDS ORDERED: ALBU8.5H (10:08)
[2021-03-24 11:39] LABS: HEMOGLOBIN 13.4 g/dl (13.5-17.5); MEAN CORPUSCULAR HEMOGLOBIN 27.1 pg (27.0-33.0); MEAN CORPUSCULAR HGB CONC 31.9 g/dl (32.0-36.5); PLATELET COUNT, AUTOMATED 289 10^3/uL (150-450); RED BLOOD COUNT 4.94 10^6/uL (4.30-6.10); WHITE BLOOD COUNT 7.1 10^3/uL (4.0-10.0)
[2021-03-24 12:07] LABS: ALBUMIN 3.6 GM/DL (3.2-5.2); ALT/SGPT 14 U/L (12-78); BILIRUBIN,DIRECT 0.1 MG/DL (0.0-0.2); BILIRUBIN,TOTAL 0.5 MG/DL (0.2-1.0); BLOOD UREA NITROGEN 26 MG/DL (7-18); CARBON DIOXIDE LEVEL 27 MEQ/L (21-32); CHLORIDE LEVEL 108 MEQ/L (98-107); GLOMERULAR FILTRATION RATE > 60.0 (>60); GLUCOSE, FASTING 89 MG/DL (70-100); LIPASE 58 U/L (73-393); POTASSIUM SERUM 4.7 MEQ/L (3.5-5.1); SODIUM LEVEL 139 MEQ/L (136-145); TOTAL PROTEIN 6.8 GM/DL (6.4-8.2)
[2021-03-24 12:27] VITALS: BP 114/64
== END 2021-03-24 12:40 | disposition home or self-care (01) ==
LOC: M ED 09:57 → EDBD 09:57 → M ED 12:40
DX: R00.2 Palpitations (principal); R07.89 Other chest pain; Z87.891 Personal history of nicotine dependence; Z91.010 Allergy to peanuts; Z91.013 Allergy to seafood

== ENCOUNTER → 2021-04-25 | Outpatient (CLI) | payer OTHER ==
[~2021-04-25] MED LIST changes: +ALBU8.5H; +EPIN0.3I11
== END ==
LOC: M LABSMTC 13:48
PROVIDERS: ATTEND Pediatrics
DX: Z20.822 Contact with and (suspected) exposure to COVID-19 (principal)

== ENCOUNTER 2021-07-17 16:41 | Emergency (ER) | payer OTHER ==
[~2021-07-17] VITALS: Ht 180.3 cm; Wt 87.5 kg
[2021-07-17 16:43] VITALS: BP 128/68
[2021-07-17] MEDS ORDERED: ACETAMINOPHEN 325 MG TAB PO ONE (23:25)
== END 2021-07-17 23:40 | disposition home or self-care (01) ==
LOC: M ED 16:41
DX: S60.221A Contusion of right hand, initial encounter (principal); W22.8XXA Striking against or struck by other objects, initial encounter; Y92.9 Unspecified place or not applicable; Y93.9 Activity, unspecified; Y99.9 Unspecified external cause status; Z87.81 Personal history of (healed) traumatic fracture; Z91.010 Allergy to peanuts; Z91.013 Allergy to seafood; Z91.030 Bee allergy status

== ENCOUNTER 2021-10-10 13:12 | Emergency (ER) | payer OTHER ==
[~2021-10-10] VITALS: Ht 170.2 cm; Wt 82.0 kg
[2021-10-10 14:10] LABS: BASO % 0.5 % (0.0-1.0); EOS # 0.2 10^3/uL (0.0-0.5); EOS % 3.8 % (0.0-3.0); HEMATOCRIT 40.1 % (42.0-52.0); HEMOGLOBIN 13.3 g/dl (13.5-17.5); LYMPH # 1.3 10^3/uL (1.5-5.0); LYMPH % 20.6 % (24.0-44.0); MEAN CORPUSCULAR HEMOGLOBIN 27.8 pg (27.0-33.0); MEAN CORPUSCULAR HGB CONC 33.2 g/dl (32.0-36.5); MEAN CORPUSCULAR VOLUME 83.9 fl (80.0-96.0); MONO # 0.3 10^3/uL (0.0-0.8); MONO % 5.2 % (2.0-8.0); NEUTROPHILS # 4.4 10^3/uL (1.5-8.5); NEUTROPHILS % 69.6 % (36.0-66.0); PLATELET COUNT, AUTOMATED 276 10^3/uL (150-450); RED BLOOD COUNT 4.78 10^6/uL (4.30-6.10); WHITE BLOOD COUNT 6.4 10^3/uL (4.0-10.0)
[2021-10-10 14:34] LABS: BLOOD UREA NITROGEN 16 MG/DL (7-18); CALCIUM LEVEL 9.4 MG/DL (8.5-10.1); CARBON DIOXIDE LEVEL 29 MEQ/L (21-32); CHLORIDE LEVEL 103 MEQ/L (98-107); CREATININE FOR GFR 1.13 MG/DL (0.70-1.30); GLOMERULAR FILTRATION RATE > 60.0 (>60); GLUCOSE, FASTING 108 MG/DL (70-100); POTASSIUM SERUM 3.9 MEQ/L (3.5-5.1); SODIUM LEVEL 135 MEQ/L (136-145)
[2021-10-10 17:27] VITALS: BP 131/69
[2021-10-11] MEDS ORDERED: PRED20TA PO (16:18)
[2021-10-11] MEDS ORDERED: VENTAER INH (16:18)
[2021-10-11] MEDS ORDERED: PEPC1TAB5 PO (16:18)
[2021-10-11] MEDS ORDERED: EPIN0.3I11 IM (16:18)
== END 2021-10-10 17:39 | disposition home or self-care (01) ==
LOC: EDBD 13:12 → M ED 13:12
DX: T78.01XA Anaphylactic reaction due to peanuts, initial encounter (principal); R06.02 Shortness of breath; Z91.030 Bee allergy status; Z91.013 Allergy to seafood; Z91.010 Allergy to peanuts

== ENCOUNTER 2021-10-11 11:42 | Emergency (ER) | payer OTHER ==
[2021-10-11] MEDS ORDERED: IPRATROPIUM 0.5MG/ALBUTEROL 2.5MG INH SOL UD 3ML (DUONEB) NEB ONE (12:30)
[2021-10-11] MEDS ORDERED: FAMOTIDINE 20MG/2ML VIAL IVP ONE (12:30)
[2021-10-11] MEDS ORDERED: PEPC1TAB5 PO (16:18)
[2021-10-11] MEDS ORDERED: EPIN0.3I11 IM (16:18)
[2021-10-11] MEDS ORDERED: VENTAER INH (16:18)
[2021-10-11] MEDS ORDERED: PRED20TA PO (16:18)
[2021-10-11 16:42] VITALS: BP 126/63
== END 2021-10-11 16:43 | disposition home or self-care (01) ==
LOC: M ED 11:42
DX: T78.01XA Anaphylactic reaction due to peanuts, initial encounter (principal); J45.909 Unspecified asthma, uncomplicated; F43.10 Post-traumatic stress disorder, unspecified; B18.2 Chronic viral hepatitis C; Z91.030 Bee allergy status; Z91.013 Allergy to seafood; Z91.010 Allergy to peanuts; Z79.51 Long term (current) use of inhaled steroids; Z79.899 Other long term (current) drug therapy

== ENCOUNTER 2021-10-17 16:47 | Emergency (ER) | payer OTHER ==
[~2021-10-17] VITALS: Ht 180.3 cm; Wt 81.8 kg
[~2021-10-17 16:47] MED LIST changes: +EPIN0.3I11 IM; +PEPC1TAB5 PO; +PRED20TA PO; +VENTAER INH
[2021-10-17] MEDS ORDERED: diphenhydrAMINE 50MG CAP PO ONE (17:00)
[2021-10-17 18:47] VITALS: BP 140/88
== END 2021-10-17 18:54 | disposition home or self-care (01) ==
LOC: M ED 16:47 → EDBD 16:47 → M ED 18:54
DX: L50.9 Urticaria, unspecified (principal); T78.40XA Allergy, unspecified, initial encounter; Z91.010 Allergy to peanuts; B18.2 Chronic viral hepatitis C; Z87.891 Personal history of nicotine dependence; Z91.013 Allergy to seafood; Z91.030 Bee allergy status; Z79.51 Long term (current) use of inhaled steroids; Z79.899 Other long term (current) drug therapy

== ENCOUNTER 2021-10-23 16:11 | Emergency (ER) | payer OTHER ==
[~2021-10-23] VITALS: Ht 180.3 cm; Wt 81.8 kg
[2021-10-23 19:00] VITALS: BP 134/64
== END 2021-10-23 19:09 | disposition home or self-care (01) ==
LOC: M ED 16:11 → EDBD 16:11 → M ED 19:09
DX: T78.01XA Anaphylactic reaction due to peanuts, initial encounter (principal); Z91.010 Allergy to peanuts; Z91.030 Bee allergy status; Z91.013 Allergy to seafood

== ENCOUNTER 2021-11-10 14:28 | Emergency (ER) | payer OTHER ==
[~2021-11-10] VITALS: Ht 180.3 cm; Wt 85.5 kg
[2021-11-10 16:29] LABS: GC DNA AMPLIFICATION NEGATIVE (NEGATIVE)
[2021-11-10] MEDS ORDERED: KETOROLAC 60MG 2ML VIAL IM ONE (16:35)
[2021-11-10] MEDS ORDERED: NAPR-837 PO (17:52)
[2021-11-10 18:02] VITALS: BP 123/70
== END 2021-11-10 18:03 | disposition home or self-care (01) ==
LOC: M ED 14:28
DX: G43.909 Migraine, unspecified, not intractable, without status migrainosus (principal); N43.3 Hydrocele, unspecified; N50.819 Testicular pain, unspecified; J45.909 Unspecified asthma, uncomplicated; F43.10 Post-traumatic stress disorder, unspecified; B18.2 Chronic viral hepatitis C; F20.9 Schizophrenia, unspecified; Z91.013 Allergy to seafood; Z91.010 Allergy to peanuts; Z91.030 Bee allergy status
CPT/HCPCS: 76870; 81001; 87661; 87810; 87850; 93976; 96372; 99283; J1885

== ENCOUNTER → 2022-05-27 | Outpatient (CLI) | payer OTHER ==
[~2022-05-27] MED LIST changes: +NAPR-837 PO
== END ==
LOC: M WUC 15:38
PROVIDERS: ATTEND Family Medicine
DX: J34.89 Other specified disorders of nose and nasal sinuses (principal)

== ENCOUNTER 2022-08-04 18:45 | Emergency (ER) | payer OTHER ==
[~2022-08-04] VITALS: Ht 180.3 cm; Wt 89.8 kg
[2022-08-04 19:22] LABS: APPEARANCE, URINE CLEAR (CLEAR); BACTERIA, URINE AUTO NEGATIVE (NEGATIVE); BILIRUBIN, URINE AUTO NEGATIVE (NEGATIVE); BLOOD, URINE BLOOD 1+ (NEGATIVE); COLOR, URINE YELLOW (YELLOW); GLUCOSE, URINE (UA) AUTO NEGATIVE (NEGATIVE); KETONE, URINE AUTO NEGATIVE (NEGATIVE); LEUKOCYTE ESTERASE, URINE AUTO NEGATIVE (NEGATIVE); NITRITE, URINE AUTO NEGATIVE (NEGATIVE); PROTEIN, URINE AUTO NEGATIVE (NEGATIVE); RBC, URINE AUTO 1 /HPF (0-3); SPECIFIC GRAVITY URINE AUTO 1.017 (1.002-1.035); SQUAMOUS EPITHELIAL CELL UR AU 0 /HPF (0-6); UROBILINOGEN, URINE AUTO 0.2 mg/dL (0.0-2.0); WBC, URINE AUTO 0 /HPF (0-3)
[2022-08-04 20:46] LABS: GC DNA AMPLIFICATION NEGATIVE (NEGATIVE)
[2022-08-04] MEDS ORDERED: AZITHROMYCIN 250MG TABLET PO ONE (22:10)
[2022-08-04] MEDS ORDERED: AZIT-12 PO (22:13)
[2022-08-04 22:18] VITALS: BP 121/68
== END 2022-08-04 22:22 | disposition home or self-care (01) ==
LOC: M ED 18:45
DX: N34.1 Nonspecific urethritis (principal); G43.909 Migraine, unspecified, not intractable, without status migrainosus; J45.909 Unspecified asthma, uncomplicated; M54.50 Low back pain, unspecified; Z91.010 Allergy to peanuts; Z91.030 Bee allergy status; Z91.013 Allergy to seafood; Z79.2 Long term (current) use of antibiotics; Z79.1 Long term (current) use of non-steroidal anti-inflammatories (NSAID)

== ENCOUNTER → 2023-02-05 | Outpatient (CLI) | payer OTHER ==
[~2023-02-05] MED LIST changes: +AZIT-12 PO
[2023-02-05 18:14] LABS: HCG, SERUM QUANTITATIVE < 2.6 MIU/ML
[2023-02-05 18:18] LABS: THYROID STIMULATING HORMONE 1.613 uIU/ML (0.55-4.78)
[2023-02-05 18:19] LABS: LUTEINIZING HORMONE 4.3 mIU/ML (1.5-9.3); PROLACTIN 5.88 NG/ML (2.1-17.7); TESTOSTERONE 305 NG/DL (241-827)
[2023-02-05 18:20] LABS: FREE T4 1.06 NG/DL (0.89-1.76)
== END ==
LOC: M WUC 14:26
PROVIDERS: ATTEND Nurse Practitioner Family
DX: N62 Hypertrophy of breast (principal)

== ENCOUNTER → 2023-03-20 | Outpatient (REF) | payer OTHER | LOC: M LAB REF 20:59 | PROVIDERS: ATTEND Physician Assistant | DX: B34.9 Viral infection, unspecified (principal) ==

== ENCOUNTER → 2023-06-09 | Outpatient (CLI) | payer MEDICAID, OTHER | LOC: M PLALAB 09:32 | PROVIDERS: ATTEND Nurse Practitioner Family | DX: N62 Hypertrophy of breast (principal) ==

== ENCOUNTER → 2023-12-30 | Outpatient (CLI) | payer OTHER | LOC: M PLALAB 16:12 | PROVIDERS: ATTEND Nurse Practitioner Family | DX: N62 Hypertrophy of breast (principal) ==

== ENCOUNTER 2024-08-16 19:35 | Emergency (ER) | payer BC, OTHER ==
[~2024-08-16] VITALS: Ht 180.3 cm; Wt 78.6 kg
[2024-08-16 23:59] VITALS: BP 126/65; TEMP 97.6; O2SAT 98
[2024-08-17] MEDS: KETOROLAC 30 MG/ML 1ML VIAL IM ONE (00:01)
== END 2024-08-17 00:05 | disposition home or self-care (01) ==
LOC: M ED 19:35
DX: S63.602A Unspecified sprain of left thumb, initial encounter (principal); J45.909 Unspecified asthma, uncomplicated; G43.909 Migraine, unspecified, not intractable, without status migrainosus; F17.200 Nicotine dependence, unspecified, uncomplicated; B19.20 Unspecified viral hepatitis C without hepatic coma; Y92.89 Other specified places as the place of occurrence of the external cause; Y93.89 Activity, other specified; Y99.0 Civilian activity done for income or pay; Z91.010 Allergy to peanuts; Z91.030 Bee allergy status; Z91.013 Allergy to seafood; Z79.1 Long term (current) use of non-steroidal anti-inflammatories (NSAID); Z79.899 Other long term (current) drug therapy
CPT/HCPCS: 73130; 96372; 99284; J1885

== ENCOUNTER 2024-11-08 22:24 | Emergency (ER) | payer BC, OTHER ==
[~2024-11-08] VITALS: Ht 175.3 cm; Wt 70.9 kg
[2024-11-09 00:50] LABS: BASO # 0.0 10^3/uL (0.0-0.2); BASO % 0.6 % (0.0-1.0); EOS # 0.1 10^3/uL (0.0-0.5); EOS % 2.0 % (0.0-3.0); LYMPH # 1.8 10^3/uL (1.5-5.0); LYMPH % 26.1 % (24.0-44.0); MONO # 0.5 10^3/uL (0.0-0.8); MONO % 7.7 % (2.0-8.0); NEUTROPHILS # 4.3 10^3/uL (1.5-8.5); NEUTROPHILS % 63.3 % (36.0-66.0); PLATELET COUNT, AUTOMATED 252 10^3/uL (150-450)
[2024-11-09 01:11] LABS: AMPHETAMINES LEVEL URINE NEGATIVE (NEGATIVE); BARBITURATES URINE NEGATIVE (NEGATIVE); BENZODIAZEPINES URINE NEGATIVE (NEGATIVE); COCAINE METABOLITE URINE NEGATIVE (NEGATIVE); METHADONE URINE NEGATIVE (NEGATIVE); OPIATES URINE NEGATIVE (NEGATIVE); PHENCYCLIDINE URINE NEGATIVE (NEGATIVE)
[2024-11-09 01:13] LABS: CANNABINOIDS URINE POSITIVE (NEGATIVE)
[2024-11-09 01:16] LABS: ETHYL ALCOHOL (ETHANOL) < 0.003 % (0.000-0.010)
[2024-11-09 01:18] LABS: ALT/SGPT 21 U/L (7.0-40); AST/SGOT 43 U/L (<34); CALCIUM LEVEL 9.2 MG/DL (8.5-10.1); CARBON DIOXIDE LEVEL 25 MMOL/L (20-31); CHLORIDE LEVEL 106 MMOL/L (98-107); CREATININE FOR GFR 0.88 MG/DL (0.70-1.30); GLOMERULAR FILTRATION RATE > 90.0 (>60); POTASSIUM SERUM 4.7 MMOL/L (3.5-5.1); SALICYLATE LEVEL < 3.0 MG/DL (<30); SODIUM LEVEL 141 MMOL/L (136-145)
[2024-11-09 03:23] VITALS: BP 127/75; TEMP 96.9; O2SAT 100
== END 2024-11-09 03:31 | disposition home or self-care (01) ==
LOC: M ED 22:24
DX: F22 Delusional disorders (principal); F43.10 Post-traumatic stress disorder, unspecified; F20.9 Schizophrenia, unspecified; G43.909 Migraine, unspecified, not intractable, without status migrainosus; B17.10 Acute hepatitis C without hepatic coma; F17.200 Nicotine dependence, unspecified, uncomplicated; F12.10 Cannabis abuse, uncomplicated; Z91.010 Allergy to peanuts; Z91.030 Bee allergy status; Z91.013 Allergy to seafood; Z79.2 Long term (current) use of antibiotics; Z79.1 Long term (current) use of non-steroidal anti-inflammatories (NSAID)

== ENCOUNTER → 2025-01-03 | Outpatient (REF) | payer BC, MEDICAID | LOC: M LAB REF 17:06 | PROVIDERS: ATTEND Physician Assistant Medical | DX: N62 Hypertrophy of breast (principal) ==

== ENCOUNTER → 2025-01-04 | Outpatient (CLI) | payer BC ==
[2025-01-04 18:45] LABS: BASO # 0.1 10^3/uL (0.0-0.2); BASO % 0.7 % (0.0-1.0); EOS # 0.0 10^3/uL (0.0-0.5); EOS % 0.4 % (0.0-3.0); LYMPH # 1.5 10^3/uL (1.5-5.0); LYMPH % 18.1 % (24.0-44.0); MONO # 0.5 10^3/uL (0.0-0.8); MONO % 5.3 % (2.0-8.0); NEUTROPHILS # 6.4 10^3/uL (1.5-8.5); NEUTROPHILS % 75.3 % (36.0-66.0); PLATELET COUNT, AUTOMATED 346 10^3/uL (150-450)
[2025-01-04 18:47] LABS: ALT/SGPT 16 U/L (7.0-40); AST/SGOT 38 U/L (<34); CALCIUM LEVEL 9.3 MG/DL (8.5-10.1); CARBON DIOXIDE LEVEL 28 MMOL/L (20-31); CHLORIDE LEVEL 104 MMOL/L (98-107); CHOLESTEROL LEVEL 156 MG/DL (<200); CHOLESTEROL RISK RATIO 2.01 (<5); CREATININE FOR GFR 0.97 MG/DL (0.70-1.30); GLOMERULAR FILTRATION RATE > 90.0 (>60); LDL CHOLESTEROL 68.3 MG/DL (<100); LUTEINIZING HORMONE 2.6 mIU/ML (1.5-9.3); NON-HDL-C 78.7 MG/DL; POTASSIUM SERUM 4.0 MMOL/L (3.5-5.1); PROSTATIC SPECIFIC AG MONITOR 0.91 NG/ML (< 4.00); SODIUM LEVEL 141 MMOL/L (136-145); TOTAL 25(OH) VITAMIN D 40.9 NG/ML (20.0-100.0); TRIGLYCERIDES LEVEL 52 MG/DL (<150); VITAMIN B12 LEVEL 601 PG/ML (211-911)
[2025-01-04 18:49] LABS: ESTRADIOL 33.5 PG/ML (<39.8)
[2025-01-04 19:12] LABS: ESTIMATED AVERAGE GLUCOSE 103.0 MG/DL (60-110)
[2025-01-06 10:52] LABS: SEX HORMONE BINDING GLOBULIN 44 nmol/L (10-50)
== END ==
LOC: M WUC 13:32
PROVIDERS: ATTEND Surgery Trauma Surgery
DX: Z00.01 Encounter for general adult medical examination with abnormal findings (principal); Z13.29 Encounter for screening for other suspected endocrine disorder